=== PATIENT | female | born 1945 | race Caucasian/White ===

== ENCOUNTER 2017-10-12 12:25 | Emergency (ER) | payer OTHER, MEDICARE ==
--- NOTE | 2017-10-12 12:47 | PDOC ---
History of Present Illness - General Chief Complaint: Respiratory Stated Complaint: COUGH & LETHARGY Time Seen by Provider: 10/12/17 12:47 - History of Present Illness Initial Comments: 10/12/17 13:10 Chief complaint: Persistent cough History of present illness: Patient has had a persistent wet cough for approximately 1 week, which is not improving despite finishing her recent course of azithromycin for 5 days. Last dose was this morning. Review of systems: Denies chest pain, shortness of breath or other difficulty breathing, fever or chills, abdominal pain, nausea, vomiting, diarrhea, new visual or focal neurologic symptoms, leg pain or swelling. Remainder systems reviewed and found to be negative Past medical history: Breast cancer with lumpectomy 10 years ago, tamoxifen for the next 5 years, recurrence of breast cancer 5 years ago with metastases to the femur, liver, lungs, and brain. Subsequent chemotherapy, radiation therapy to the brain, and undergoing gamma knife therapy for individual brain metastases. 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 Drooping of the left eyelid, chronic, thought to be the result of radiation or gamma knife therapy. Gastric band. Social history: Lives with her , 2 daughters nearby, limited ambulation, cares for self. No tobacco alcohol or nonprescription drugs Family history: Reviewed and noncontributory Physical exam: Alert, generalized weakness and fatigue but no acute distress, cooperative. Afebrile, No tachypnea or dyspnea. Afebrile, mildly tachycardic 112/m, O2 saturation 97%, respiratory rate 16 and unlabored, adequate blood pressure. PERRLA, fundi benign, ENT clear. Drooping of the left upper eyelid is present, but EOMs appear intact. Neck supple without bruit mass or nodes Decreased breath sounds at the right base, full breath sounds in other areas, no wheezes rales or rhonchi CV S1 and S2 distant without murmur rub or gallop pulses full and symmetric no JVD or edema no bruits regular Abdomen soft nontender without mass or organomegaly. Bowel sounds normal Extremities reveal chronic lymphedema of the right arm is result of breast surgery. This is reportedly unchanged by the patient and her family. Otherwise no CCE. Multiple minor ecchymoses of the extremities, attributed to decreased platelet counts in the past. Impression: Metastatic breast cancer, on chemotherapy and radiation therapy, persistent cough despite course of azithromycin Plan: CBC and chemistries, chest x-ray, and further evaluation and treatment depending on results., 10/12/17 13:18 Past History - Past Medical History Allergies/Adverse Reactions: Allergies Allergy/AdvReac Type Severity Reaction Status Date / Time No Known Drug Allergies Allergy Verified 09/04/15 11:26 platelets AdvReac Chills Uncoded 08/15/15 07:05 Home Medications: Ambulatory Orders Azithromycin [Zithromax -] 250 mg PO UTDICT 10/12/17 Dexamethasone [Decadron -] 4 mg PO DAILY 10/12/17 Anemia: Yes (YRS AGO) Asthma: No Cancer: Yes (right breast,Lungs, pericardium, lymph nodes) Cardiac Disorders: No CVA: No COPD: No CHF: No Dementia: No Diabetes: No GI Disorders: No Disorders: No HTN: No (NOT SINCE LOSING WT) Hypercholesterolemia: No Liver Disease: No Seizures: Yes (AUG 2014 X 1/RELATED TO BRAIN CA) Thyroid Disease: No - Surgical History Abdominal Surgery: Yes (LAP BANDING 2011) Appendectomy: Yes (1979) Cardiac Surgery: No Cholecystectomy: No Lung Surgery: No Neurologic Surgery: Yes (GAMMA KNIFE FOR BRAIN METS AFTER SEIZURE 2013) Orthopedic Surgery: No - Suicide/Smoking/Psychosocial Hx Smoking History: Never smoked Have you smoked in the past 12 months: No Hx Alcohol Use: Yes (RARELY) Drug/Substance Use Hx: No Substance Use Type: Alcohol Hx Substance Use Treatment: No ED Treatment Course - LABORATORY CBC & Chemistry Diagram: 10/12/17 13:05 10/12/17 13:05 Medical Decision Making - Medical Decision Making 10/12/17 13:58 Chest x-ray shows possible nodule in the right base, which has been present for some time. No sign of acute pneumonia. Labs are without significant abnormalities other than a low platelet count, which has been present in the past, and is probably due to current chemotherapy. As noted in the physical exam, respiratory rate and oxygen saturation are adequate. Most likely this is an acute URI/viral bronchitis. The patient has finished a course of azithromycin, She appears to be stable and it was recommended that she rest, avoid the cold, stay as active in the house as possible, but if there is fever, increased shortness of breath, or any other respiratory symptoms she should return to the ER for immediate evaluation. Otherwise follow-up as scheduled with her oncologist on Thursday. Ambulatory and discharged with family to follow-up as directed *DC/Admit/Observation/Transfer Diagnosis at time of Disposition: Bronchitis, acute Qualifiers: Bronchitis organism: unspecified organism Qualified Code(s): J20.9 - Acute bronchitis, unspecified - Discharge Dispostion Disposition: HOME Condition at time of disposition: Stable Admit: No - Referrals Referrals: Adrian Kelly MD [Primary Care Provider] - 3 days - Patient Instructions Printed Discharge Instructions: DI for Acute Bronchitis Additional Instructions: Rest, fluids, frequent walking around the house, stay active, but avoid the cold. Cough medication as needed. Return to ER if there is fever, shortness of breath or other breathing difficulty, worsening weakness, fatigue, or lethargy. Otherwise follow-up as scheduled with oncologist on Thursday and primary physician within 2-3 days. - Post Discharge Activity
[2017-10-12 12:55] VITALS: BP 118/94; PULSE 112; TEMP 98.6; BMI 33.0
[2017-10-12 13:28] LABS: HEMATOCRIT 42.3 % (32.4-45.2); HEMOGLOBIN 14.4 GM/dl (10.7-15.3); MCH 32.9 pg (25.7-33.7); MCHC 34.1 g/dl (32.0-36.0); MEAN CELL VOLUME 96.5 fl (80-96); PLATELET COUNT 69 K/MM3 (134-434); RBC 4.38 M/mm3 (3.60-5.2); RDW 15.2 % (11.6-15.6); WHITE BLOOD COUNT 8.4 K/mm3 (4.0-10.8)
[2017-10-12 13:40] LABS: ALK PHOS 89 U/L (32-92); ANION GAP 6 (8-16); BILIRUBIN,TOTAL 0.8 mg/dl (0.2-1.0); BLOOD UREA NITROGEN 27 mg/dl (7-18); CALCIUM 8.2 mg/dl (8.4-10.2); CHLORIDE 102 mmol/L (98-107); CO2 28 mmol/L (22-28); CREATININE 0.5 mg/dl (0.6-1.3); GLUCOSE,RANDOM 199 mg/dl (74-106); POTASSIUM 3.8 mmol/L (3.5-5.1); SGOT/AST 17 U/L (10-42); SGPT/ALT 31 U/L (10-40); SODIUM 136 mmol/L (136-145); TOT PROT 5.3 g/dl (6.4-8.3)
[2017-10-12 14:43] LABS: PLATELET ESTIMATE DECREASED
== END 2017-10-12 14:15 | disposition home or self-care (01) ==
LOC: FER 12:25
DX: J20.9 Acute bronchitis, unspecified (principal); Z85.3 Personal history of malignant neoplasm of breast; D64.9 Anemia, unspecified
CPT/HCPCS: 36415; 71045-TC; 80053; 85025; 99282-25

== ENCOUNTER 2017-10-23 02:13 | Inpatient (IN) | payer OTHER, MEDICARE ==
[2017-10-23] MEDS ORDERED: SODIUM CHLORIDE 1,000 ML IV ONE (02:39)
--- NOTE | 2017-10-23 02:41 | PDOC ---
History of Present Illness - General Chief Complaint: Weakness Stated Complaint: WEAKNESS Time Seen by Provider: 10/23/17 02:37 History Source: Patient Exam Limitations: No Limitations - History of Present Illness Initial Comments: 10/23/17 02:40 This is a 72-year-old female brought in by EMS for evaluation of generalized weakness. Patient to sleep on the couch and when she woke up was too weak to get up off the couch. So family called EMS. Patient has history significant for breast cancer and is on chemotherapy. Patient was recently here for generalized weakness. Patient denies any chest pain, shortness of breath, nausea, vomiting, diarrhea, fever, chills or any other complaints. Patient is noted to have a moist cough in the emergency room PAST MEDICAL HISTORY: no significant history PAST SURGICAL HISTORY: no significant history FAMILY HISTORY: no pertinant history SOCIAL HISTORY: Pt lives with family and is retired MEDICATIONS: reviewed ALLERGIES: As per nursing notes Review of Systems General: No fevers or chills, no weakness, no weight loss HEENT: No change in vision. No sore throat,. No ear pain CardioVascular: No chest pain or shortness of breath, cough Respiratory:No cough, or wheezing. Gastrointestinal: no nausea, vomitting, diarrhea or constipation, No rectal bleeding Genitourinary: No dysuria, hematuria, or frequency Musculoskeletal: No joint or muscle pain or swelling Neurologic: No headache, vertigo, dizziness or loss of consciousness Psychiatric: nor depression Skin: No rashes or easy bruising Endocrine: no increased thirst or abnormal weight change Allergic: no skin or latex allergy All other systems reviewed and normal Exam: General: Well-nourished well-developed individual, no acute distress HEENT: Throat: Normal, tonsils normal, no erythema or exudate Neck: Supple, no meningeal signs, no lymphadenopathy Eyes::Pupils equal reactive and round, extraocular motion intact Chest: Nontender to palpation Cardiac: S1-S2 normal, regular rate and rhythm, no murmurs rubs or gallops Respiratory: Decreased breath sounds bilateral with rhonchi at bases bilateral Abdomen: Soft, nondistended, normal bowel sounds, nontender to palpation diffusely Extremities: Warm, dry, no cyanosis, clubbing, or edema Skin: No rashes Neuro: Alert and oriented x3, CN II - XII intact, nonfocal exam with normal strength, normal sensation, normal reflexes, normal gait, Psych: Normal mood and affect Medical decision making this is a 72-year-old female who is history of breast cancer on chemotherapy. Patient comes in complaining of generalized weakness. Patient does not have a fever however concerned for neutropenia, sepsis, electrolyte or metabolic abnormalities. Will obtain a sepsis workup using sepsis order sets. We'll reassess 03:30 Patient unchanged condition stable however oxygen level is low so will put patient on a couple liters of oxygen EKG shows sinus rhythm with occasional PVC otherwise no acute ST-T wave changes and normal intervals 10/23/17 04:34 Some of the blood was hemolyzed so redrawn and resent Patient's clinical condition remains unchanged Her chest x-ray shows bilateral infiltrates, blood cultures were drawn and sent antibiotics ordered ceftriaxone and azithromycin from the sepsis pneumonia order set for patient. 10/23/17 06:34 Assessment and plan: This is a 72-year-old female who comes in complaining of generalized weakness. Patient has bilateral pneumonia. Patient has markedly elevated white count with a left shift white count is 23.9. Obesity is not acidotic her venous blood gas pH is normal, her lactic acid is 1.8 which is normal. Patient is requiring some oxygen she is on 2 L nasal cannula Discussed with the hospitalist to list Dr. Araujo who has agreed to admit the patient to an inpatient bed Past History - Past Medical History Allergies/Adverse Reactions: Allergies Allergy/AdvReac Type Severity Reaction Status Date / Time No Known Drug Allergies Allergy Verified 09/04/15 11:26 platelets AdvReac Chills Uncoded 08/15/15 07:05 Home Medications: Ambulatory Orders Azithromycin [Zithromax -] 250 mg PO UTDICT 10/12/17 Dexamethasone [Decadron -] 4 mg PO DAILY 10/12/17 Anemia: Yes (YRS AGO) Asthma: No Cancer: Yes (right breast,Lungs, pericardium, lymph nodes) Cardiac Disorders: No CVA: No COPD: No CHF: No Dementia: No Diabetes: No GI Disorders: No Disorders: No HTN: No (NOT SINCE LOSING WT) Hypercholesterolemia: No Liver Disease: No Seizures: Yes (AUG 2014 X 1/RELATED TO BRAIN CA) Thyroid Disease: No - Surgical History Abdominal Surgery: Yes (LAP BANDING 2011) Appendectomy: Yes (1979) Cardiac Surgery: No Cholecystectomy: No Lung Surgery: No Neurologic Surgery: Yes (GAMMA KNIFE FOR BRAIN METS AFTER SEIZURE 2013) Orthopedic Surgery: No - Suicide/Smoking/Psychosocial Hx Smoking History: Never smoked Have you smoked in the past 12 months: No Hx Alcohol Use: Yes (RARELY) Drug/Substance Use Hx: No Substance Use Type: Alcohol Hx Substance Use Treatment: No *Physical Exam - Vital Signs Last Vital Signs Temp Pulse Resp BP Pulse Ox 98.7 F 103 H 18 127/102 99 10/23/17 02:16 10/23/17 02:16 10/23/17 02:16 10/23/17 02:16 10/23/17 02:16 ED Treatment Course - LABORATORY CBC & Chemistry Diagram: 10/23/17 02:40 10/23/17 04:20 *DC/Admit/Observation/Transfer Diagnosis at time of Disposition: Pneumonia - Discharge Dispostion Condition at time of disposition: Stable Admit: Yes - Referrals Referrals: Abel Main [Primary Care Provider] - - Patient Instructions - Post Discharge Activity
[2017-10-23 03:17] LABS: HEMATOCRIT 33.1 % (32.4-45.2); HEMOGLOBIN 11.2 GM/dL (10.7-15.3); MCH 31.6 pg (25.7-33.7); MCHC 33.9 g/dl (32.0-36.0); MEAN CELL VOLUME 93.2 fl (80-96); PLATELET COUNT 123 K/MM3 (134-434); RBC 3.55 M/mm3 (3.60-5.2); RDW 16.5 % (11.6-15.6); WHITE BLOOD COUNT 23.9 K/mm3 (4.0-10.0)
[2017-10-23 03:53] LABS: ALBUMIN 2.5 g/dl (3.4-5.0); ANION GAP 10 (8-16); BILIRUBIN,TOTAL 0.6 mg/dL (0.2-1.0); BLOOD UREA NITROGEN 21 mg/dL (7-18); CALCIUM 7.9 mg/dL (8.5-10.1); CHLORIDE 103 mmol/L (98-107); CO2 26 mmol/L (21-32); GLUCOSE,RANDOM 82 mg/dL (74-106); SGPT/ALT 36 U/L (12-78); SODIUM 139 mmol/L (136-145); TOT PROT 5.5 g/dl (6.4-8.2)
[2017-10-23 03:54] LABS: ALK PHOS 136 U/L (45-117)
[2017-10-23] MEDS ORDERED: AZITHROMYCIN IVPB 500 MG in DEXTROSE 5%-WATER - 250 ML IVPB ONE (04:33)
[2017-10-23] MEDS ORDERED: CEFTRIAXONE 1 GM in DEXTROSE 5%-WATER - 100 ML IVPB ONE (04:33)
[2017-10-23 04:59] LABS: VENOUS PH 7.4 (7.32-7.42); VENOUS PO2 25.1 mmHg (28-48)
[2017-10-23 05:15] LABS: URINE APPEARANCE CLEAR; URINE BILIRUBIN NEGATIVE (NEGATIVE); URINE BLOOD NEGATIVE (NEGATIVE); URINE COLOR STRAW; URINE GLUCOSE (UA) NEGATIVE (NEGATIVE); URINE KETONE NEGATIVE (NEGATIVE); URINE NITRITE POSITIVE (NEGATIVE); URINE PROTEIN NEGATIVE (NEGATIVE); URINE UROBILINOGEN NEGATIVE mg/dL (0.2-1.0)
[2017-10-23 05:20] LABS: URINE LEUK ESTERASE 2+ (NEGATIVE)
[2017-10-23 05:26] LABS: ACANTHOCYTES 0; ANISOCYTOSIS 0; HELMET CELLS 0; HOWELL-JOLLY BODIES 0; MACROCYTOSIS 0; OVALOCYTE 0; PLATELET ESTIMATE DECREASED; SICKELED CELLS 0; TARGET CELLS 0; TEAR DROP CELLS 0; TOXIC GRANULATION 0
[2017-10-23 05:34] LABS: EPI CELLS RARE /HPF (FEW); URINE BACTERIA MODERATE /hpf (NONE SEEN); URINE MUCUS RARE
[2017-10-23] MEDS ORDERED: SODIUM CHLORIDE 500 ML IV STA (06:42)
[2017-10-23] MEDS ORDERED: SODIUM CHLORIDE 1,000 ML IV STA (06:44)
--- NOTE | 2017-10-23 06:56 | HP ---
CHIEF COMPLAINT: generalized weakness PCP: Dr Main (oncologist) HISTORY OF PRESENT ILLNESS: Patient is a 72 y/o female with a past medical history of metastic (Brain and lung) breast CA stage IV and Von Willerbrand's disease, patient receives in chemotherapy weekly, next dose is Thursday, . Patient received 2 doses of neupogen, Thursday (10/21) and (10/22) . She reports ongoing moist cough for the past month and within the past 30 days, she has completed five days of zithromax, solumedrol last dose was 10/21/17, and is on day 3 of bactrim. Patient reports ongoing generalized weakness and worsening of the cough within the past 24 hours. She reports the inability to ambulate or perform ADL's within the past 24 hours and as a result sought evaluation in the emergency department. ER course was notable for: (1) cbc 23.9, bandemia with left shift (2) chest xray progressive atelactactic changes (3) urinalysis + nitrates Recent Travel: none PAST MEDICAL HISTORY: see HPI PAST SURGICAL HISTORY: appendectomy, lap band, tubal ligation, cataract surgery , Social History: resides at home with Smoking:none Alcohol:none Drugs: none Family History: brother--> esophegeal [place] Allergies No Known Drug Allergies Allergy (Verified 09/04/15 11:26) Platlets needs premeds Chills platelets Adverse Reaction (Uncoded 08/15/15 07:05) Chills Needs premeds HOME MEDICATIONS: Home Medications Medication Instructions Recorded Azithromycin [Zithromax -] 250 mg PO UTDICT 10/12/17 Dexamethasone [Decadron -] 4 mg PO DAILY 10/12/17 REVIEW OF SYSTEMS CONSTITUTIONAL: Present: generalized weakness, malaise, Absent: fever, chills, diaphoresis, loss of appetite, weight change HEENT: Absent: rhinorrhea, nasal congestion, throat pain, throat swelling, difficulty swallowing, mouth swelling, ear pain, eye pain, visual changes CARDIOVASCULAR: Absent: chest pain, syncope, palpitations, irregular heart rate, lightheadedness , peripheral edema RESPIRATORY: Absent: cough, shortness of breath, dyspnea with exertion, orthopnea, wheezing, stridor, hemoptysis GASTROINTESTINAL: Absent: abdominal pain, abdominal distension, nausea, vomiting, diarrhea, constipation, melena, hematochezia GENITOURINARY: Absent: dysuria, frequency, urgency, hesitancy, hematuria, flank pain, genital pain MUSCULOSKELETAL: Absent: myalgia, arthralgia, joint swelling, back pain, neck pain SKIN: Absent: rash, itching, pallor HEMATOLOGIC/IMMUNOLOGIC: Absent: easy bleeding, easy bruising, lymphadenopathy, frequent infections ENDOCRINE: Absent: unexplained weight gain, unexplained weight loss, heat intolerance, cold intolerance NEUROLOGIC: Absent: headache, focal weakness or paresthesias, dizziness, unsteady gait, seizure, mental status changes, bladder or bowel incontinence PSYCHIATRIC: Absent: anxiety, depression, suicidal or homicidal ideation, hallucinations. PHYSICAL EXAMINATION Vital Signs - 24 hr 10/23/17 10/23/17 10/23/17 02:16 04:10 05:15 Temperature 98.7 F 97.7 F Pulse Rate 103 H Pulse Rate [ 90 81 Radial] Respiratory 18 18 Rate Blood Pressure 127/102 Blood Pressure 99/62 103/65 [Left Arm] O2 Sat by Pulse 99 96 99 Oximetry (%) 10/23/17 06:15 Temperature 98.3 F Pulse Rate Pulse Rate [ 83 Radial] Respiratory 17 Rate Blood Pressure Blood Pressure 96/61 [Left Arm] O2 Sat by Pulse 100 Oximetry (%) GENERAL: Awake, alert, and fully oriented, in no acute distress. HEAD: Normal with no signs of trauma. EYES: Pupils equal, round and reactive to light, extraocular movements intact, sclera anicteric, conjunctiva clear. No lid lag. EARS, NOSE, THROAT: Ears normal, nares patent, thrush noted to the oropharynx. dry mucous membranes. NECK: Normal range of motion, supple without lymphadenopathy, JVD, or masses. LUNGS: Breath sounds equal, clear to apexes, crackles to bilateral bases, No wheezes, persistent moist cough noted, No accessory muscle use. HEART: Regular rate and rhythm, normal S1 and S2 without murmur, rub or gallop. ABDOMEN: Soft, nontender, not distended, normoactive bowel sounds, no guarding, no rebound, no masses. No hepatomegaly or splenomegaly. MUSCULOSKELETAL: Normal range of motion at all joints. No bony deformities or tenderness. No CVA tenderness. UPPER EXTREMITIES: 2+ pulses, warm, well-perfused. No cyanosis. No clubbing. No peripheral edema. LOWER EXTREMITIES: 2+ pulses, warm, well-perfused. No calf tenderness. No peripheral edema. NEUROLOGICAL: Cranial nerves II-XII intact. Normal speech. Normal gait. PSYCHIATRIC: Cooperative. Good eye contact. Appropriate mood and affect. SKIN: Warm, dry, normal turgor, no rashes or lesions noted, normal capillary refill. Laboratory Results - last 24 hr 10/23/17 10/23/17 10/23/17 02:40 02:40 02:40 WBC 23.9 H D RBC 3.55 L D Hgb 11.2 D Hct 33.1 D MCV 93.2 MCH 31.6 MCHC 33.9 RDW 16.5 H D Plt Count 123 L D MPV 9.0 Neutrophils % No Result Required. Neutrophils % (Manual) 80.0 Band Neutrophils % 4.0 Lymphocytes % No Result Required. Lymphocytes % (Manual) 2.0 L Monocytes % (Manual) 5 Eosinophils % (Manual) 0.0 Basophils % (Manual) 9.0 H* Myelocytes % (Man) 0 Metamyelocytes 0 Hypochromia 0 Toxic Granulation 0 Dohle Bodies 0 Platelet Estimate Decreased Polychromasia 0 Poikilocytosis 0 Basophilic Stippling 0 Anisocytosis 0 Microcytosis 0 Macrocytosis 0 Spherocytes 0 Sickle Cells 0 Target Cells 0 Tear Drop Cells 0 Ovalocytes 0 Stomatocytes 0 Helmet Cells 0 Kelsey-Johnson Bodies 0 [place] Rings 0 [place] Cells 0 Acanthocytes (Spur) 0 Fragmented RBCs 0 Schistocytes 0 VBG pH POC VBG pCO2 POC VBG pO2 Mixed VBG HCO3 Sodium 139 Potassium Chloride 103 Carbon Dioxide 26 Anion Gap 10 BUN 21 H Creatinine 1.0 Creat Clearance w eGFR 54.66 Random Glucose 82 Lactic Acid Calcium 7.9 L Magnesium Total Bilirubin 0.6 D AST ALT 36 Alkaline Phosphatase 136 H Creatine Kinase 67 Troponin I < 0.02 Total Protein 5.5 L Albumin 2.5 L Urine Color Urine Appearance Urine pH Ur Specific [place] Urine Protein Urine Glucose (UA) Urine Ketones Urine Blood Urine Nitrite Urine Bilirubin Urine Urobilinogen Ur Leukocyte Esterase Urine WBC (Auto) Urine RBC (Auto) Ur Epithelial Cells Urine Bacteria Urine Mucus 10/23/17 10/23/17 10/23/17 04:05 04:20 04:20 WBC RBC Hgb Hct MCV MCH MCHC RDW Plt Count MPV Neutrophils % Neutrophils % (Manual) Band Neutrophils % Lymphocytes % Lymphocytes % (Manual) Monocytes % (Manual) Eosinophils % (Manual) Basophils % (Manual) Myelocytes % (Man) Metamyelocytes Hypochromia Toxic Granulation Dohle Bodies Platelet Estimate Polychromasia Poikilocytosis Basophilic Stippling Anisocytosis Microcytosis Macrocytosis Spherocytes Sickle Cells Target Cells Tear Drop Cells Ovalocytes Stomatocytes Helmet Cells Kelsey-Johnson Bodies Carrington Rings Chanell Cells Acanthocytes (Spur) Fragmented RBCs Schistocytes VBG pH POC VBG pCO2 POC VBG pO2 Mixed VBG HCO3 Sodium Potassium 4.0 Chloride Carbon Dioxide Anion Gap BUN Creatinine Creat Clearance w eGFR Random Glucose Lactic Acid 1.8 Calcium Magnesium 2.0 Total Bilirubin AST 17 D ALT Alkaline Phosphatase Creatine Kinase Troponin I Total Protein Albumin Urine Color Straw Urine Appearance Clear Urine pH 6.0 D Ur Specific [place] 1.006 Urine Protein Negative Urine Glucose (UA) Negative Urine Ketones Negative Urine Blood Negative Urine Nitrite Positive Urine Bilirubin Negative Urine Urobilinogen Negative Ur Leukocyte Esterase 2+ H Urine WBC (Auto) 15 Urine RBC (Auto) 1 Ur Epithelial Cells Rare Urine Bacteria Moderate Urine Mucus Rare 10/23/17 04:27 WBC RBC Hgb Hct MCV MCH MCHC RDW Plt Count MPV Neutrophils % Neutrophils % (Manual) Band Neutrophils % Lymphocytes % Lymphocytes % (Manual) Monocytes % (Manual) Eosinophils % (Manual) Basophils % (Manual) Myelocytes % (Man) Metamyelocytes Hypochromia Toxic Granulation Dohle Bodies Platelet Estimate Polychromasia Poikilocytosis Basophilic Stippling Anisocytosis Microcytosis Macrocytosis Spherocytes Sickle Cells Target Cells Tear Drop Cells Ovalocytes Stomatocytes Helmet Cells Kelsey-Johnson Bodies Carrington Rings Chanell Cells Acanthocytes (Spur) Fragmented RBCs Schistocytes VBG pH 7.40 POC VBG pCO2 43.0 POC VBG pO2 25.1 L Mixed VBG HCO3 26.0 H Sodium Potassium Chloride Carbon Dioxide Anion Gap BUN Creatinine Creat Clearance w eGFR Random Glucose Lactic Acid Calcium Magnesium Total Bilirubin AST ALT Alkaline Phosphatase Creatine Kinase Troponin I Total Protein Albumin Urine Color Urine Appearance Urine pH Ur Specific [place] Urine Protein Urine Glucose (UA) Urine Ketones Urine Blood Urine Nitrite Urine Bilirubin Urine Urobilinogen Ur Leukocyte Esterase Urine WBC (Auto) Urine RBC (Auto) Ur Epithelial Cells Urine Bacteria Urine Mucus ASSESSMENT/PLAN: F/E/N -regular diet - replete phos, sodium phos gtt ordered PPX - hold AC due to thrombocytopenia - pepcid - oob - scd dispo: pt requires inpatient admission plan discussed with both daughters and agree with plan full code Problem List - Problem (1) Leukocytosis Assessment/Plan: - patient received neupogen 10/21 and 10/22, maybe secondary to neupogen, nitrate + urine noted and high suspicioun for PNA on exam, case discussed with infectious disease, Dr Garibay advised to continue rocephin and zithromax, with strict monitoring - stat blood cultures from port ordered, follow peripheral venous blood cultures and urine cultures - repeat cbc in AM, trend fever curve Code(s): D72.829 - ELEVATED WHITE BLOOD CELL COUNT, UNSPECIFIED Qualifiers: Leukocytosis type: bandemia Qualified Code(s): D72.825 - Bandemia (2) Urinary tract infection Assessment/Plan: - continue rocephin until urine culture is resulted - appreciate ID input Code(s): N39.0 - URINARY TRACT INFECTION, SITE NOT SPECIFIED (3) Breast cancer metastasized to brain Assessment/Plan: - receives weekly chemotherapy, cytotoxin, case discussed with Mariel Miller NP (Dr Main), copies of chart received from office - Dr Main does not have privileges at this hospital, will appreciate the input of oncology, Dr Sanchez/David Code(s): C50.919 - MALIGNANT NEOPLASM OF UNSP SITE OF UNSPECIFIED FEMALE BREAST ; C79.31 - SECONDARY MALIGNANT NEOPLASM OF BRAIN (4) Von Willebrand disease Assessment/Plan: - monitor platelets, repeat cbc in AM -appreciate hematology/oncology input Code(s): D68.0 - VON WILLEBRAND'S DISEASE (5) Thrush, oral Assessment/Plan: - start diflucan and magic mouth wash. Code(s): B37.0 - CANDIDAL STOMATITIS Visit type - Emergency Visit Emergency Visit: Yes ED Registration Date: 10/23/17 Care time: The patient presented to the Emergency Department on the above date and was hospitalized for further evaluation of their emergent condition. - New Patient This patient is new to me today: Yes Date on this admission: 10/23/17 - Critical Care Critical Care patient: No
[2017-10-23] MEDS ORDERED: ALBUTEROL SO4 0.083% IH SOL 2.5 MG/3 ML VIAL.NEB. NEB PRN (07:30)
[2017-10-23] MEDS ORDERED: ENOXAPARIN NA (PORCINE) 40 MG/0.4 ML DISP.SYRIN SQ SCH (10:00)
[2017-10-23] MEDS ORDERED: ONDANSETRON *ODT* 4 MG TABLET SL PRN (10:07)
--- NOTE | 2017-10-23 10:13 | EKG ---
Test Reason : Blood Pressure : / mmHG Vent. Rate : 095 BPM Atrial Rate : 095 BPM P-R Int : 134 ms QRS Dur : 080 ms QT Int : 346 ms P-R-T Axes : 033 -13 005 degrees QTc Int : 434 ms SINUS RHYTHM WITH PREMATURE SUPRAVENTRICULAR COMPLEXES LOW VOLTAGE QRS BORDERLINE ECG Confirmed by MD AVINASH, ERENDIRA ([id number]) on 10/23/2017 10:12:46 AM Referred By: LEVY YA Confirmed By:ERENDIRA DA SILVA MD
[2017-10-23] MEDS ORDERED: CEFTRIAXONE 2 GM in DEXTROSE 5%-WATER - 100 ML IVPB SCH (10:30)
[2017-10-23] MEDS: FLUCONAZOLE 100 MG TABLET (UD) PO ONE (10:49)
[2017-10-23] MEDS: FAMOTIDINE 20 MG TABLET PO SCH ×2 (10:50→22:46)
[2017-10-23] MEDS: SODIUM CHLORIDE 1,000 ML IV SCH (10:51)
[2017-10-23] MEDS ORDERED: SODIUM PHOSPHATE - 15 MM in DEXTROSE 5%-WATER - 250 ML IVPB ONE (11:30)
[2017-10-23] MEDS: ALBUTEROL SO4 2.5/IPRATROPIUM 0.5 INH SOL 3 ML VIAL.NEB. NEB SCH ×3 (12:55→20:00)
[2017-10-23] MEDS: MAG HYDROX/ALH/SMC/DPHA/LIDO 240 ML MOUTHWASH MM SCH ×2 (12:57→17:02)
[2017-10-23 15:31] VITALS: BMI 36.3
[2017-10-23] MEDS ORDERED: AZITHROMYCIN IVPB 250 ML IVPB SCH (16:00)
[2017-10-23] MEDS: CEFTRIAXONE 2 GM/100 ML BAG IVPB SCH (16:59)
[2017-10-23] MEDS ORDERED: REFRIGERATED ANITBIOTICS ONE (17:01)
[2017-10-23 17:26] LABS: ALBUMIN 2.4 g/dl (3.5-5.0); ALK PHOS 105 U/L (32-92); ANION GAP 7 (8-16); BILIRUBIN,TOTAL 0.5 mg/dl (0.2-1.0); BLOOD UREA NITROGEN 17 mg/dl (7-18); CALCIUM 7.6 mg/dl (8.4-10.2); CHLORIDE 107 mmol/L (98-107); CO2 24 mmol/L (22-28); CREATININE 0.9 mg/dl (0.6-1.3); GLUCOSE,RANDOM 147 mg/dl (74-106); POTASSIUM 3.5 mmol/L (3.5-5.1); SGOT/AST 21 U/L (10-42); SGPT/ALT 29 U/L (10-40); SODIUM 138 mmol/L (136-145); TOT PROT 4.5 g/dl (6.4-8.3)
[2017-10-23 17:27] LABS: INR 1.17 (0.82-1.09); PROTHROMBIN TIME (PATIENT) 13.1 SEC (10.2-13.0)
[2017-10-23 17:42] LABS: BASO % 0.5 % (0-2.0); EOS % 0.1 % (0-4.5); HEMATOCRIT 32.4 % (32.4-45.2); HEMOGLOBIN 10.8 GM/dl (10.7-15.3); LYMPH % 10.1 % (8-40); MCH 31.7 pg (25.7-33.7); MCHC 33.5 g/dl (32.0-36.0); MEAN CELL VOLUME 94.8 fl (80-96); MEAN PLT VOLUME 8.1 fl (7.5-11.1); NEUT % 29.3 % (42.8-82.8); PLATELET COUNT 67 K/MM3 (134-434); RBC 3.41 M/mm3 (3.60-5.2); WHITE BLOOD COUNT 17.1 K/mm3 (4.0-10.8)
--- NOTE | 2017-10-23 20:16 | PN ---
Progress Note (short form) - Note Progress Note: ID Consult dictated
--- NOTE | 2017-10-23 23:30 | HOSP ---
Subjective - Review of Symptoms Events since last encounter: Nurse report pt SBP in 80s Subjective: Pt reports feeling a little bit better. Pt denies any lightheadedness. + cough persists. CT results with RML, RLL, LLL infiltrates. Pulmonary: Yes: Cough Physical Examination Vital Signs: Vital Signs Temperature 97.8 F 10/23/17 22:00 Pulse Rate 98 H 10/23/17 22:00 Respiratory Rate 19 10/23/17 22:00 Blood Pressure 82/49 10/23/17 22:00 O2 Sat by Pulse Oximetry (%) 97 10/23/17 22:00 Constitutional: Yes: No Distress Cardiovascular: Yes: Regular Rate and Rhythm Respiratory: Yes: Other (crackles right base) Gastrointestinal: Yes: Normal Bowel Sounds, Soft. No: Tenderness Edema: No Neurological: Yes: Alert, Oriented Labs: CBC, BMP 10/23/17 16:10 10/23/17 16:10 Hospitalist Encounter Assessment: B/L Pneumonia with mild hypotension - will give NS bolus 250cc x1 then resume 100cc/hr - cont VS q4h. - cont ceftriaxone/azithromycin - cont ID consult
[2017-10-23] MEDS ORDERED: SODIUM CHLORIDE 250 ML IV STA (23:31)
[2017-10-24] MEDS ORDERED: REFRIGERATED ANITBIOTICS ONE ×4 (00:08→23:04)
[2017-10-24] MEDS: MAG HYDROX/ALH/SMC/DPHA/LIDO 240 ML MOUTHWASH MM SCH ×5 (00:28→23:12)
[2017-10-24] MEDS: ALBUTEROL SO4 2.5/IPRATROPIUM 0.5 INH SOL 3 ML VIAL.NEB. NEB SCH ×4 (08:00→21:10)
[2017-10-24 09:06] LABS: HEMATOCRIT 34.7 % (32.4-45.2); HEMOGLOBIN 11.2 GM/dl (10.7-15.3); MCH 30.9 pg (25.7-33.7); MCHC 32.3 g/dl (32.0-36.0); MEAN CELL VOLUME 95.7 fl (80-96); MEAN PLT VOLUME 7.8 fl (7.5-11.1); PLATELET COUNT 94 K/MM3 (134-434); RBC 3.63 M/mm3 (3.60-5.2); RDW 15.6 % (11.6-15.6); WHITE BLOOD COUNT 14.5 K/mm3 (4.0-10.8)
[2017-10-24 09:36] LABS: ANION GAP 9 (8-16); BLOOD UREA NITROGEN 11 mg/dl (7-18); CALCIUM 7.7 mg/dl (8.4-10.2); CHLORIDE 106 mmol/L (98-107); CO2 25 mmol/L (22-28); CREATININE 0.7 mg/dl (0.6-1.3); GLUCOSE,RANDOM 117 mg/dl (74-106); POTASSIUM 3.5 mmol/L (3.5-5.1); SODIUM 140 mmol/L (136-145)
[2017-10-24] MEDS: SODIUM CHLORIDE 1,000 ML IV SCH (09:45)
[2017-10-24] MEDS: FAMOTIDINE 20 MG TABLET PO SCH (09:47)
--- NOTE | 2017-10-24 09:52 | PN ---
Progress Note, Physician History of Present Illness: Awake, alert Blood c/s + GPCP+CC No focal complaint Mildly tachypneic at rest + cough Afebrile WBC improved - Current Medication List Current Medications: Active Medications Acetaminophen (Tylenol -) 650 mg PO Q6H PRN PRN Reason: FEVER Albuterol Sulfate (Ventolin 0.083% Nebulizer Soln -) 1 amp NEB Q4H PRN PRN Reason: SHORT OF BREATH/WHEEZING Albuterol/Ipratropium (Duoneb -) 1 amp NEB RQID [facility] Last Admin: 10/23/17 20:00 Dose: 1 amp Famotidine (Pepcid -) 20 mg PO BID [facility] Last Admin: 10/23/17 22:46 Dose: 20 mg Fluconazole (Diflucan -) 100 mg PO DAILY [facility] Sodium Chloride (Normal Saline -) 1,000 mls @ 100 mls/hr IV ASDIR [facility] Last Admin: 10/23/17 10:51 Dose: 100 mls/hr Azithromycin (Zithromax 500mg Ivpb (Pre-Docked)) 250 mls @ 250 mls/hr IVPB DAILY@1600 [facility] Last Admin: 10/23/17 16:59 Dose: 250 mls/hr Ceftriaxone Sodium (Rocephin 2gm Ivpb (Pre-Docked)) 2 gm in 100 mls @ 200 mls/ hr IVPB DAILY@1600 [facility] Last Admin: 10/23/17 16:59 Dose: 200 mls/hr Lidocaine/Aluminum/Magnesium/Simeth (Magic Mouthwash *Sjr Formula* -) 5 ml MM Q6HPO [facility] Last Admin: 10/24/17 06:00 Dose: 5 ml Ondansetron HCl (Zofran Odt -) 4 mg SL Q8H PRN PRN Reason: NAUSEA AND/OR VOMITING - Objective Vital Signs: Vital Signs Temperature 98.6 F 10/24/17 05:07 Pulse Rate 107 H 10/24/17 05:07 Respiratory Rate 20 10/24/17 05:07 Blood Pressure 107/59 10/24/17 05:07 O2 Sat by Pulse Oximetry (%) 95 10/24/17 05:07 Constitutional: Yes: No Distress, Obese Eyes: Yes: Conjunctiva Clear HENT: Yes: Thrush Neck: Yes: Supple Cardiovascular: Yes: Regular Rate and Rhythm, S1, S2 Respiratory: Yes: Rhonchi, Wheezes Gastrointestinal: Yes: Normal Bowel Sounds, Soft, Abdomen, Obese. No: Tenderness Edema: Yes Labs: CBC, BMP 10/24/17 08:52 10/24/17 08:52 INR, PTT INR 1.17 (0.82-1.09) 10/23/17 16:10 Assessment/Plan Streptococcal bacteremia/ sepsis Sepsis secondary to pneumonia Multilobar pneumonia Metastatic carcinoma Leukocytosis- sepsis/ neupogen Pending identification of blood isolate empiric ceftriaxone/ vancomycin
[2017-10-24] MEDS: VANCOMYCIN 1,000 MG in DEXTROSE 5%-WATER - 250 ML IVPB SCH ×2 (10:00→21:10)
[2017-10-24] MEDS: FLUCONAZOLE 100 MG TABLET (UD) PO SCH (10:47)
--- NOTE | 2017-10-24 11:41 | PN ---
Physical Exam: SUBJECTIVE: Patient seen and examined at bedside. OBJECTIVE: Vital Signs Period Temp Pulse Resp BP Sys/Blum Pulse Ox Last 24 Hr 97.7 F-98.9 F 94-107 19-20 82-107/40-59 93-97 GENERAL: The patient is awake, alert, and fully oriented, in no acute distress. HEAD: Alopecia. LUNGS: Breath sounds equal, clear to auscultation bilaterally, no wheezes, no crackles, no accessory muscle use. HEART: Regular rate and rhythm, S1, S2 without murmur, rub or gallop. ABDOMEN: SNTND EXTREMITIES: 2+ pulses, warm, well-perfused, no edema. NEUROLOGICAL: Left lid lag. PSYCH: Normal mood, normal affect. Laboratory Results - last 24 hr 10/23/17 10/23/17 10/23/17 16:10 16:10 16:10 WBC 17.1 H D RBC 3.41 L D Hgb 10.8 D Hct 32.4 D MCV 94.8 MCH 31.7 MCHC 33.5 RDW 16.0 H Plt Count 67 L MPV 8.1 Neutrophils % 29.3 L Lymphocytes % 10.1 Monocytes % 60.0 H Eosinophils % 0.1 Basophils % 0.5 PT with INR INR Sodium 138 Potassium 3.5 Chloride 107 Carbon Dioxide 24 Anion Gap 7 L BUN 17 D Creatinine 0.9 D Creat Clearance w eGFR > 60 Random Glucose 147 H D Lactic Acid 2.3 H* Calcium 7.6 L Total Bilirubin 0.5 D AST 21 D ALT 29 Alkaline Phosphatase 105 H Total Protein 4.5 L Albumin 2.4 L Blood Type Antibody Screen 10/23/17 10/23/17 10/23/17 16:10 16:10 22:00 WBC RBC Hgb Hct MCV MCH MCHC RDW Plt Count MPV Neutrophils % Lymphocytes % Monocytes % Eosinophils % Basophils % PT with INR 13.1 H INR 1.17 Sodium Potassium Chloride Carbon Dioxide Anion Gap BUN Creatinine Creat Clearance w eGFR Random Glucose Lactic Acid 1.5 Calcium Total Bilirubin AST ALT Alkaline Phosphatase Total Protein Albumin Blood Type O NEGATIVE Antibody Screen Negative 10/24/17 10/24/17 08:52 08:52 WBC 14.5 H RBC 3.63 Hgb 11.2 Hct 34.7 MCV 95.7 MCH 30.9 MCHC 32.3 RDW 15.6 Plt Count 94 L MPV 7.8 Neutrophils % Lymphocytes % Monocytes % Eosinophils % Basophils % PT with INR INR Sodium 140 Potassium 3.5 Chloride 106 Carbon Dioxide 25 Anion Gap 9 BUN 11 D Creatinine 0.7 D Creat Clearance w eGFR Random Glucose 117 H D Lactic Acid Calcium 7.7 L Total Bilirubin AST ALT Alkaline Phosphatase Total Protein Albumin Blood Type Antibody Screen Active Medications Generic Name Dose Route Start Last Admin Trade Name Freq PRN Reason Stop Dose Admin Acetaminophen 650 mg 10/23/17 10:10 Tylenol - PO Q6H PRN FEVER Albuterol Sulfate 1 amp 10/23/17 07:30 Ventolin 0.083% Nebulizer Soln - NEB Q4H PRN SHORT OF BREATH/WHEEZING Albuterol/Ipratropium 1 amp 10/23/17 12:00 10/23/17 20:00 Duoneb - NEB 1 amp RQID LILLIE Administration Famotidine 20 mg 10/23/17 10:00 10/23/17 22:46 Pepcid - PO 20 mg BID LILLIE Administration Fluconazole 100 mg 10/24/17 10:00 Diflucan - PO DAILY LILLIE Sodium Chloride 1,000 mls @ 100 mls/hr 10/23/17 09:45 10/23/17 10:51 Normal Saline - IV 100 mls/hr ASDIR LILLIE Administration Ceftriaxone Sodium 2 gm in 100 mls @ 200 mls/hr 10/23/17 16:00 10/23/17 16:59 Rocephin 2gm Ivpb (Pre-Docked) IVPB 200 mls/hr DAILY@1600 L[facility]IE Administration Vancomycin HCl 1,000 mg/ 250 mls @ 200 mls/hr 10/24/17 10:00 Dextrose IVPB Q12H LILLIE Lidocaine/Aluminum/Magnesium/Simeth 5 ml 10/23/17 12:00 10/24/17 06:00 Magic Mouthwash *Sjr Formula* - MM 5 ml Q6HPO [facility]ILLIE Administration Ondansetron HCl 4 mg 10/23/17 10:07 Zofran Odt - SL Q8H PRN NAUSEA AND/OR VOMITING Microbiology 10/23/17 04:05 Urine - Urine Clean Catch Urine Culture - Preliminary Lactose Fermenting Neg Bacilli 10/23/17 04:20 Blood - Peripheral Venous Blood Culture - Preliminary Group D Strep Or Entero Coccus 10/23/17 10:55 Blood - Brenda Cath Blood Culture - Preliminary Pending Organism 10/23/17 04:20 Blood - Peripheral Venous Blood Culture - Preliminary Pending Organism 10/23/17 07:15 Nasopharyngeal Swab Influenza Types A,B Antigen (KRISSY) - Final 10/23/17 07:15 Nasopharyngeal Swab - Final ASSESSMENT/PLAN: A: 72-year-old woman with history of breast cancer with metastasis to the brain status post chemotherapy and gamma knife who was admitted with pneumonia and UTI now with bacteremia. P: Bacteremia- GDS vs Enterococcus - Rocephin - Vanco - echo pending final culture - ID following Leukocytosis - Cultures as above - Rocephin - D/C Zithromax - Started Vanco - trend CBC - ID follow UTI - Rocephin - Cultures as above Metastatic breast Cancer - oncologist does not have privileges at [facility] - Heme/onc consult pending Oral candidiasis - fluconazole - magic mouthwash Thrombocytopenia - uptrending - daily CBC F/E/N - regular diet - replete prn PPX - OOB Dispo- requires continued inpatient treatment Visit type - Emergency Visit Emergency Visit: Yes ED Registration Date: 10/23/17 Care time: The patient presented to the Emergency Department on the above date and was hospitalized for further evaluation of their emergent condition. - New Patient This patient is new to me today: Yes Date on this admission: 10/25/17 - Critical Care Critical Care patient: No
--- NOTE | 2017-10-24 13:04 | CONS ---
DATE OF CONSULTATION: 10/23/2017 HISTORY OF PRESENT ILLNESS: The patient is a 72-year-old female with a history of metastatic breast cancer evaluated for pneumonia. She was admitted to the hospital with a several-day history of worsening dyspnea on exertion and cough, as well as generalized weakness. She had recently been treated with Zithromax and Bactrim for a respiratory tract illness. She received chemotherapy prior to admission and had received 2 injections of Neupogen. On admission, chest x-ray showed infiltrates. CT scan confirms the presence of right middle lobe, right lower lobe and left lower lobe infiltrates. Patient reports dyspnea, cough productive of whitish sputum. She denies any chest pain. No hemoptysis. She has had low-grade fever. White blood cell count markedly elevated. She denies any ill contacts, no recent hospitalizations. She is a nonsmoker. PAST MEDICAL HISTORY: Positive for breast CA with metastases to the lung and brain, history of seizure disorder, Von Willebrand disease. PAST SURGICAL HISTORY: Status post gastric band, appendectomy, tubal ligation, cataract surgery. ALLERGIES: No known allergies. OUTPATIENT MEDICATIONS: Include dexamethasone and Zithromax, chemotherapy regimen Cytoxan 5-FU fu , methotrexate. SOCIAL HISTORY: She resides at home with family members. No active tobacco use. SYSTEMS REVIEW: Neurologic: Positive for brain metastases and seizure disorder Cardiac: Negative for chest pain or palpitations. Respiratory: As per HPI. Gastrointestinal: Negative for vomiting or diarrhea. Genitourinary: Negative for urinary tract infection. LABORATORY DATA: White count 23.9 with left shift, hematocrit 33.1, platelet count 123. BUN 17, creatinine 0.9. Urinalysis 15 white cells. Influenza swab negative. PHYSICAL EXAMINATION: General: She is awake and alert, mildly dyspneic on examination. Vital signs: Temperature 98.0, maximum temperature 100.3, blood pressure 91/40, pulse 78 and regular, respirations 19 per minute. Positive alopecia. HEENT: Sclerae anicteric. Positive thrush. Neck: Supple. Port site. No erythema or tenderness. Heart: Heart sounds S1, S2. Lungs: Bilateral rhonchi and occasional wheeze. Abdomen: Obese, soft, nontender. Extremities: Positive for edema. IMPRESSION: 1. Multilobar pneumonia. 2. Possible sepsis secondary to pneumonia. 3. Metastatic breast cancer. 4. Leukocytosis, multifactorial (infection, Neupogen). Await culture results, continue empiric Zithromax and ceftriaxone for empiric coverage in this non-neutropenic patient, sputum culture, urine legionella antigen. Will follow. Thank you for the kind referral. EDMUNDO RODRIGUEZ M.D. [id number]
--- NOTE | 2017-10-24 15:10 | CONSULT ---
Consult Consult Specialty:: onc Referred by:: sherlyn nunez Reason for Consultation:: breast cancer - History of Present Illness Chief Complaint: 72 yof w met breast cancer w brain and lung involvement adm w progressive weakness. Last rec'd CMF 10/07. Subsequently noted cough, inc in weakness and was eval'd in ED last wk. Given azithro. Sxs progressed and was found to be neutropenic in Dr Main's office. Given neupogen and started Bactrim. Proceeded to ED yest when family noted weakness increasing. denies fever, pain, diarrhea. Very poor intake and non-productive cough. Hx noteworthy for recent POD noted in brain. s/p WBRT last year and SRS more recently planned - History Source History Provided By: Patient, Family Member, Medical Record - Alcohol/Substance Use Hx Alcohol Use: Yes (RARELY) - Smoking History Smoking history: Never smoked Have you smoked in the past 12 months: No Home Medications - Allergies Allergies/Adverse Reactions: Allergies Allergy/AdvReac Type Severity Reaction Status Date / Time No Known Drug Allergies Allergy Verified 09/04/15 11:26 platelets AdvReac Chills Uncoded 08/15/15 07:05 - Home Medications Home Medications: Ambulatory Orders Benzonatate [Tessalon Pearls -] 100 mg PO TID 10/23/17 Chemo Theapy Diluent No.1/Pf [Elliotts B Solution Ampule] 1 ml IT ASDIR Nystatin Oral Suspension - [Nystatin Oral Susp 228832 Units/5 ML -] 500,000 units PO TID 10/23/17 Sulfamethoxazole/Trimethoprim [Bactrim Ds -] 1 tab PO BID 10/23/17 Review of Systems - Review of Systems Constitutional: reports: Lethargy, Loss of Appetite, Weakness Respiratory: reports: Cough Gastrointestinal: reports: No Symptoms Physical Exam Vital Signs: Vital Signs Temperature 98.5 F 10/24/17 14:35 Pulse Rate 103 H 10/24/17 14:35 Respiratory Rate 20 10/24/17 14:35 Blood Pressure 112/63 10/24/17 14:35 O2 Sat by Pulse Oximetry (%) 97 10/24/17 14:35 Constitutional: Yes: No Distress (non-toxic, pale, frail) HENT: Yes: Other (posterior dry mucositis; no thrush) Respiratory: Yes: Other (few wheezes R PAC fxn'l, NT, no erythema) Gastrointestinal: Yes: Soft Edema: No Peripheral Pulses WNL: Yes Integumentary: Yes: WNL Neurological: Yes: Other (gen weakness) Labs: CBC, BMP 10/24/17 08:52 10/24/17 08:52 Assessment/Plan met breast cancer s/p CMF 10/07 multilobar pna, UTI, strep bacteremia Leukocytosis post neupogen monitor daily cbc and will re-dose neupogen as needed to maintain adequate neutrophils cont abx as outlined per ID mech dvt ppx for now
[2017-10-24] MEDS: CEFTRIAXONE 2 GM/100 ML BAG IVPB SCH (16:00)
[2017-10-25] MEDS ORDERED: REFRIGERATED ANITBIOTICS ONE ×2 (05:44→09:11)
[2017-10-25] MEDS: MAG HYDROX/ALH/SMC/DPHA/LIDO 240 ML MOUTHWASH MM SCH ×3 (06:42→18:27)
[2017-10-25 08:34] LABS: HEMATOCRIT 29.9 % (32.4-45.2); HEMOGLOBIN 10.2 GM/dl (10.7-15.3); MCH 32.3 pg (25.7-33.7); MCHC 34.1 g/dl (32.0-36.0); MEAN PLT VOLUME 8.5 fl (7.5-11.1); PLATELET COUNT 70 K/MM3 (134-434); RBC 3.15 M/mm3 (3.60-5.2); RDW 16.1 % (11.6-15.6); WHITE BLOOD COUNT 8.1 K/mm3 (4.0-10.8)
[2017-10-25 08:55] LABS: ALBUMIN 2.1 g/dl (3.5-5.0); ALK PHOS 107 U/L (32-92); ANION GAP 9 (8-16); BILIRUBIN,TOTAL 0.3 mg/dl (0.2-1.0); BLOOD UREA NITROGEN 8 mg/dl (7-18); CALCIUM 7.9 mg/dl (8.4-10.2); CHLORIDE 104 mmol/L (98-107); CO2 28 mmol/L (22-28); CREATININE 0.5 mg/dl (0.6-1.3); GLUCOSE,RANDOM 84 mg/dl (74-106); PHOSPHOROUS 2.7 mg/dl (2.5-4.6); POTASSIUM 3.2 mmol/L (3.5-5.1); SGOT/AST 15 U/L (10-42); SGPT/ALT 27 U/L (10-40); SODIUM 141 mmol/L (136-145); TOT PROT 4.3 g/dl (6.4-8.3)
[2017-10-25] MEDS: VANCOMYCIN 1,000 MG in DEXTROSE 5%-WATER - 250 ML IVPB SCH (09:18)
[2017-10-25] MEDS: ALBUTEROL SO4 2.5/IPRATROPIUM 0.5 INH SOL 3 ML VIAL.NEB. NEB SCH ×4 (09:19→22:10)
[2017-10-25] MEDS: FLUCONAZOLE 100 MG TABLET (UD) PO SCH (09:19)
--- NOTE | 2017-10-25 09:50 | PN ---
Physical Exam: SUBJECTIVE: Patient seen and examined. Pateint states she has more energy today and feels "stronger." OBJECTIVE: Vital Signs Period Temp Pulse Resp BP Sys/Blum Pulse Ox Last 24 Hr 97.6 F-98.5 F 98-103 19-20 99-112/61-72 95-98 GENERAL: The patient is awake, alert, and fully oriented, in no acute distress. HEAD: Alopecia. LUNGS: Breath sounds equal, clear to auscultation bilaterally, no wheezes, no crackles, no accessory muscle use. HEART: Regular rate and rhythm, S1, S2 without murmur, rub or gallop. ABDOMEN: SNTND EXTREMITIES: 2+ pulses, warm, well-perfused, no edema. NEUROLOGICAL: Left lid lag. PSYCH: Normal mood, normal affect. Laboratory Results - last 24 hr 10/25/17 10/25/17 06:00 06:00 WBC 8.1 D RBC 3.15 L Hgb 10.2 L Hct 29.9 L MCV 95.0 MCH 32.3 MCHC 34.1 RDW 16.1 H Plt Count 70 L MPV 8.5 Neutrophils % No Result Required. Lymphocytes % No Result Required. Sodium 141 Potassium 3.2 L Chloride 104 Carbon Dioxide 28 Anion Gap 9 BUN 8 D Creatinine 0.5 L D Creat Clearance w eGFR > 60 Random Glucose 84 D Calcium 7.9 L Phosphorus 2.7 Total Bilirubin 0.3 D AST 15 D ALT 27 Alkaline Phosphatase 107 H Total Protein 4.3 L Albumin 2.1 L Active Medications Generic Name Dose Route Start Last Admin Trade Name Freq PRN Reason Stop Dose Admin Acetaminophen 650 mg 10/23/17 10:10 Tylenol - PO Q6H PRN FEVER Albuterol Sulfate 1 amp 10/23/17 07:30 Ventolin 0.083% Nebulizer Soln - NEB Q4H PRN SHORT OF BREATH/WHEEZING Albuterol/Ipratropium 1 amp 10/23/17 12:00 10/25/17 09:19 Duoneb - NEB 1 amp RQID LILLIE Administration Fluconazole 100 mg 10/24/17 10:00 10/25/17 09:19 Diflucan - PO 100 mg DAILY LILLIE Administration Sodium Chloride 1,000 mls @ 100 mls/hr 10/23/17 09:45 10/24/17 09:45 Normal Saline - IV 100 mls/hr ASDIR LILLIE Administration Ceftriaxone Sodium 2 gm in 100 mls @ 200 mls/hr 10/23/17 16:00 10/24/17 16:00 Rocephin 2gm Ivpb (Pre-Docked) IVPB 200 mls/hr DAILY@1600 [facility] Administration Vancomycin HCl 1,000 mg/ 250 mls @ 200 mls/hr 10/24/17 10:00 10/25/17 09:18 Dextrose IVPB 200 mls/hr Q12H LILLIE Administration Lidocaine/Aluminum/Magnesium/Simeth 5 ml 10/23/17 12:00 10/25/17 06:42 Magic Mouthwash *Sjr Formula* - MM 5 ml Q6HPO LILLIE Administration Ondansetron HCl 4 mg 10/23/17 10:07 Zofran Odt - SL Q8H PRN NAUSEA AND/OR VOMITING Microbiology 10/23/17 04:20 Blood - Peripheral Venous Blood Culture - Preliminary Enterococcus Faecalis 10/23/17 04:05 Urine - Urine Clean Catch Urine Culture - Final Escherichia Coli 10/23/17 04:20 Blood - Peripheral Venous Blood Culture - Preliminary Group D Strep Or Entero Coccus 10/23/17 10:55 Blood - Brenda Cath Blood Culture - Preliminary Group D Strep Or Entero Coccus 10/23/17 07:15 Nasopharyngeal Swab Influenza Types A,B Antigen (KRISSY) - Final 10/23/17 07:15 Nasopharyngeal Swab - Final ASSESSMENT/PLAN: A: 72-year-old woman with history of breast cancer with metastasis to the brain status post chemotherapy and gamma knife who was admitted with pneumonia and UTI now with bacteremia. P: Enterococcus Bacteremia - Rocephin - Vanco - echo pending final culture - ID following Leukocytosis - resolved - Cultures as above - Rocephin - D/C Zithromax - Started Vanco - trend CBC - ID follow UTI - Rocephin - Cultures as above Metastatic breast Cancer - oncologist does not have privileges at [facility] - Heme/onc consult pending Oral candidiasis - fluconazole - magic mouthwash Thrombocytopenia - uptrending - daily CBC Hypokalemia - KCL 40mEq po - trend daily F/E/N - regular diet - replete prn PPX - OOB Dispo- requires continued inpatient treatment Visit type - Emergency Visit Emergency Visit: Yes ED Registration Date: 10/23/17 Care time: The patient presented to the Emergency Department on the above date and was hospitalized for further evaluation of their emergent condition. - New Patient This patient is new to me today: No - Critical Care Critical Care patient: No
[2017-10-25 10:29] LABS: PLATELET ESTIMATE DECREASED
[2017-10-25] MEDS ORDERED: POTASSIUM CHLORIDE ORAL LIQUID 20 MEQ/15 ML PO ONE (10:46)
[2017-10-25] MEDS ORDERED: ARTIFICIAL TEARS (POLYVINYL ALCOHOL 1.4%) OPTH DROPS OU PRN (13:07)
[2017-10-25] MEDS ORDERED: AMPICILLIN SODIUM 2 GM VIAL ONE (16:40)
[2017-10-25] MEDS ORDERED: GENTAMICIN SO4 80 MG/2 ML VIAL ONE (16:41)
[2017-10-25] MEDS: GENTAMICIN IVPB SCH (16:49)
[2017-10-25] MEDS: AMPICILLIN - 2 GM in SODIUM CHLORIDE 100 ML IVPB SCH ×3 (16:49→22:13)
[2017-10-25] MEDS: SODIUM CHLORIDE IVPB SCH (16:49)
[2017-10-26] MEDS: MAG HYDROX/ALH/SMC/DPHA/LIDO 240 ML MOUTHWASH MM SCH ×4 (00:40→18:04)
[2017-10-26] MEDS: GENTAMICIN IVPB SCH ×2 (01:20→14:20)
[2017-10-26] MEDS: SODIUM CHLORIDE IVPB SCH ×2 (01:20→14:20)
[2017-10-26] MEDS: AMPICILLIN - 2 GM in SODIUM CHLORIDE 100 ML IVPB SCH ×6 (02:10→21:58)
[2017-10-26] MEDS ORDERED: REFRIGERATED ANITBIOTICS ONE ×4 (05:16→23:47)
--- NOTE | 2017-10-26 08:30 | PN ---
Physical Exam: SUBJECTIVE: Patient seen and examined, reports feeling improved, ambulated patient to bathroom does report dyspnea upon exertion. OBJECTIVE: Vital Signs Period Temp Pulse Resp BP Sys/Blum Pulse Ox Last 24 Hr 97.6 F-98.4 F 97-111 19-19 99-107/57-66 95-98 GENERAL: The patient is awake, alert, and fully oriented, in no acute distress. HEAD: Normal with no signs of trauma. EYES: PERRL, extraocular movements intact, sclera anicteric, conjunctiva clear. No ptosis. ENT: Ears normal, nares patent, oropharynx clear without exudates, moist mucous membranes. NECK: Trachea midline, full range of motion, supple. LUNGS: Breath sounds equal, clear to auscultation bilaterally, no wheezes, no crackles, no accessory muscle use. HEART: Regular rate and rhythm, S1, S2 without murmur, rub or gallop. ABDOMEN: Soft, nontender, nondistended, normoactive bowel sounds, no guarding, no rebound, no hepatosplenomegaly, no masses. EXTREMITIES: 2+ pulses, warm, well-perfused, no edema. NEUROLOGICAL: Cranial nerves II through XII grossly intact. Normal speech, gait not observed. PSYCH: Normal mood, normal affect. SKIN: Warm, dry, normal turgor, no rashes or lesions noted, alleyn dressing to cocycox Laboratory Results - last 24 hr CBC WBC 8.2 K/mm3 (4.0-10.8) 10/26/17 06:00 RBC 2.83 M/mm3 (3.60-5.2) L 10/26/17 06:00 Hgb 9.4 GM/dl (10.7-15.3) L 10/26/17 06:00 Hct 27.0 % (32.4-45.2) L 10/26/17 06:00 MCV 95.4 fl (80-96) 10/26/17 06:00 MCH 33.4 pg (25.7-33.7) 10/26/17 06:00 MCHC 35.0 g/dl (32.0-36.0) 10/26/17 06:00 RDW 16.2 % (11.6-15.6) H 10/26/17 06:00 Plt Count 66 K/MM3 (134-434) L 10/26/17 06:00 MPV 8.6 fl (7.5-11.1) 10/26/17 06:00 Neutrophils % 80.0 % (42.8-82.8) 10/26/17 06:00 Neutrophils % (Manual) 80.0 % (42.8-82.8) 10/25/17 06:00 Band Neutrophils % 4.0 % (0-10) 10/25/17 06:00 Lymphocytes % 10.0 % (8-40) 10/26/17 06:00 Lymphocytes % (Manual) 6.0 % (8-40) L 10/25/17 06:00 Monocytes % 9.5 % (3.8-10.2) 10/26/17 06:00 Monocytes % (Manual) 10 % (3.8-10.2) 10/25/17 06:00 Eosinophils % 0.0 % (0-4.5) 10/26/17 06:00 Eosinophils % (Manual) 0.0 % (0-4.5) 10/23/17 02:40 Basophils % 0.5 % (0-2.0) 10/26/17 06:00 Basophils % (Manual) 9.0 % (0-2.0) H* 10/23/17 02:40 Myelocytes % (Man) 0 % (0-2) 10/23/17 02:40 Metamyelocytes 0 % (0-2) 10/23/17 02:40 Hypochromia 0 10/23/17 02:40 Toxic Granulation 0 10/23/17 02:40 Dohle Bodies 0 10/23/17 02:40 Platelet Estimate Decreased 10/25/17 06:00 Polychromasia 0 10/23/17 02:40 Poikilocytosis 0 10/23/17 02:40 Basophilic Stippling 0 10/23/17 02:40 Anisocytosis 0 10/23/17 02:40 Microcytosis 0 10/23/17 02:40 Macrocytosis 0 10/23/17 02:40 Spherocytes 0 10/23/17 02:40 Sickle Cells 0 10/23/17 02:40 Target Cells 0 10/23/17 02:40 Tear Drop Cells 0 10/23/17 02:40 Ovalocytes 0 10/23/17 02:40 Stomatocytes 0 10/23/17 02:40 Helmet Cells 0 10/23/17 02:40 [place] Bodies 0 10/23/17 02:40 [place] Rings 0 10/23/17 02:40 [place] Cells 0 10/23/17 02:40 Acanthocytes (Spur) 0 10/23/17 02:40 Fragmented RBCs 0 10/23/17 02:40 Schistocytes 0 10/23/17 02:40 CMP Sodium 138 mmol/L (136-145) 10/26/17 06:00 Potassium 3.4 mmol/L (3.5-5.1) L 10/26/17 06:00 Chloride 102 mmol/L (98-107) 10/26/17 06:00 Carbon Dioxide 28 mmol/L (22-28) 10/26/17 06:00 Anion Gap 8 (8-16) 10/26/17 06:00 BUN 8 mg/dl (7-18) 10/26/17 06:00 Creatinine 0.5 mg/dl (0.6-1.3) L 10/26/17 06:00 Creat Clearance w eGFR > 60 (>60) 10/25/17 06:00 Random Glucose 92 mg/dl (74-106) 10/26/17 06:00 Lactic Acid 1.5 mmol/L (0.0-2.0) 10/23/17 22:00 Calcium 7.9 mg/dl (8.4-10.2) L 10/26/17 06:00 Phosphorus 2.9 mg/dl (2.5-4.6) 10/26/17 06:00 Magnesium 1.5 mg/dL (1.8-2.4) L 10/26/17 06:00 Total Bilirubin 0.3 mg/dl (0.2-1.0) D 10/25/17 06:00 AST 15 U/L (10-42) D 10/25/17 06:00 ALT 27 U/L (10-40) 10/25/17 06:00 Alkaline Phosphatase 107 U/L (32-92) H 10/25/17 06:00 Creatine Kinase 67 IU/L (26-192) 10/23/17 02:40 Troponin I < 0.02 ng/ml (0.00-0.05) 10/23/17 02:40 Total Protein 4.3 g/dl (6.4-8.3) L 10/25/17 06:00 Albumin 2.1 g/dl (3.5-5.0) L 10/25/17 06:00 Active Medications Generic Name Dose Route Start Last Admin Trade Name Freq PRN Reason Stop Dose Admin Acetaminophen 650 mg 10/23/17 10:10 Tylenol - PO Q6H PRN FEVER Albuterol Sulfate 1 amp 10/23/17 07:30 Ventolin 0.083% Nebulizer Soln - NEB Q4H PRN SHORT OF BREATH/WHEEZING Albuterol/Ipratropium 1 amp 10/23/17 12:00 10/25/17 22:10 Duoneb - NEB 1 amp RQID LILLIE Administration Artificial Tears 1 drop 10/25/17 13:07 Artificial Tears OU BID PRN DRY EYES Fluconazole 100 mg 10/24/17 10:00 10/25/17 09:19 Diflucan - PO 100 mg DAILY LILLIE Administration Sodium Chloride 1,000 mls @ 100 mls/hr 10/23/17 09:45 10/24/17 09:45 Normal Saline - IV 100 mls/hr ASDIR LILLIE Administration Ampicillin Sodium 2 gm/ Sodium 100 mls @ 200 mls/hr 10/25/17 14:15 10/26/17 05:16 Chloride IVPB 200 mls/hr Q4H LILLIE Administration Gentamicin Sulfate 50 mg/ 101.25 mls @ 100 mls/hr 10/25/17 14:15 10/26/17 01: 20 Sodium Chloride IVPB 100 mls/hr Q12H LILLIE Administration Lidocaine/Aluminum/Magnesium/Simeth 5 ml 10/23/17 12:00 10/26/17 05:17 Magic Mouthwash *Sjr Formula* - MM 5 ml Q6HPO LILLIE Administration Ondansetron HCl 4 mg 10/23/17 10:07 Zofran Odt - SL Q8H PRN NAUSEA AND/OR VOMITING Microbiology 10/25/17 06:00 Urine For Antigen Detection Legionella Antigen - Final, negative 10/25/17 06:00 Urine For Antigen Detection Streptococcus pneumoniae Antigen (M - Final, negative 10/23/17 10:55 Blood - Brenda Cath Blood Culture - Final Enterococcus Faecalis 10/23/17 04:20 Blood - Peripheral Venous Blood Culture - Final Enterococcus Faecalis 10/23/17 04:20 Blood - Peripheral Venous Blood Culture - Final Enterococcus Faecalis 10/23/17 04:05 Urine - Urine Clean Catch Urine Culture - Final Escherichia Coli 10/23/17 07:15 Nasopharyngeal Swab Influenza Types A,B Antigen (KRISSY) - Final , negative 10/23/17 07:15 Nasopharyngeal Swab - Final IMAGING chest CT 10/23/17: interval development of right middle & lower lobe, left lower lobe infilitrate, increased pulmonary artery pressure. chest xray 10/22/17: pregressive athelatic changes ekg 10/23/17: nsr with supraventicular changes ASSESSMENT/PLAN: 1) ID Enterococcus Bacteremia - continue ampicillin and gentamycin (10/25 -) vancomyin (10/25-10/26) rocephin (-10/26) zithromax (10/23-10/24) - repeat blood cultures ordered from port and peripheral venous - pending echo - Dr Garibay, ID consulted and following Leukocytosis resolved UTI - ecoli, sensitive to gentamycin oral candidasis -continue fluconazole and magic mouthwash 2) heme/onc Metastatic breast Cancer - Dr Gandhi,oncologist does not have privileges at [facility] spoke to KARIME Powell on 10/23/17, made aware of patient's condition and plan - Heme/onc, Dr Sanchez, consulted and following Thrombocytopenia - plt 66, strict monitoring F/E/N - regular diet - replete potassium and magnesium PPX - OOB Dispo- requires continued inpatient treatment Problem List - Problems (1) Leukocytosis Code(s): D72.829 - ELEVATED WHITE BLOOD CELL COUNT, UNSPECIFIED Qualifiers: Leukocytosis type: bandemia Qualified Code(s): D72.825 - Bandemia (2) Urinary tract infection Code(s): N39.0 - URINARY TRACT INFECTION, SITE NOT SPECIFIED (3) Breast cancer metastasized to brain Code(s): C50.919 - MALIGNANT NEOPLASM OF UNSP SITE OF UNSPECIFIED FEMALE BREAST ; C79.31 - SECONDARY MALIGNANT NEOPLASM OF BRAIN (4) Von Willebrand disease Code(s): D68.0 - VON WILLEBRAND'S DISEASE (5) Thrush, oral Code(s): B37.0 - CANDIDAL STOMATITIS Visit type - Emergency Visit Emergency Visit: Yes ED Registration Date: 10/23/17 Care time: The patient presented to the Emergency Department on the above date and was hospitalized for further evaluation of their emergent condition. - New Patient This patient is new to me today: No - Critical Care Critical Care patient: No - Discharge Referral Referred to [facility] Med P.C.: No
[2017-10-26] MEDS: ALBUTEROL SO4 2.5/IPRATROPIUM 0.5 INH SOL 3 ML VIAL.NEB. NEB SCH ×5 (08:35→20:02)
--- NOTE | 2017-10-26 09:04 | PN ---
Progress Note, Physician History of Present Illness: Awake but weak appearing No focal complaint. No N/V/D. No abdominal pain or dysuria No pain at port site Slightly tachypneic at rest + cough Afebrile WBC 8.1 plt 70 Blood c/s Enterococcus - Current Medication List Current Medications: Active Medications Acetaminophen (Tylenol -) 650 mg PO Q6H PRN PRN Reason: FEVER Albuterol Sulfate (Ventolin 0.083% Nebulizer Soln -) 1 amp NEB Q4H PRN PRN Reason: SHORT OF BREATH/WHEEZING Albuterol/Ipratropium (Duoneb -) 1 amp NEB RQID [facility] Last Admin: 10/26/17 08:35 Dose: 1 amp Artificial Tears (Artificial Tears) 1 drop OU BID PRN PRN Reason: DRY EYES Fluconazole (Diflucan -) 100 mg PO DAILY [facility] Last Admin: 10/25/17 09:19 Dose: 100 mg Sodium Chloride (Normal Saline -) 1,000 mls @ 100 mls/hr IV ASDIR [facility] Last Admin: 10/24/17 09:45 Dose: 100 mls/hr Ampicillin Sodium 2 gm/ Sodium (Chloride) 100 mls @ 200 mls/hr IVPB Q4H [facility] Last Admin: 10/26/17 05:16 Dose: 200 mls/hr Gentamicin Sulfate 50 mg/ (Sodium Chloride) 101.25 mls @ 100 mls/hr IVPB Q12H [facility] Last Admin: 10/26/17 01:20 Dose: 100 mls/hr Lidocaine/Aluminum/Magnesium/Simeth (Magic Mouthwash *Sjr Formula* -) 5 ml MM Q6HPO [facility] Last Admin: 10/26/17 05:17 Dose: 5 ml Ondansetron HCl (Zofran Odt -) 4 mg SL Q8H PRN PRN Reason: NAUSEA AND/OR VOMITING - Objective Vital Signs: Vital Signs Temperature 97.6 F 10/26/17 06:31 Pulse Rate 107 H 10/26/17 08:55 Respiratory Rate 19 10/26/17 07:50 Blood Pressure 100/57 10/26/17 06:31 O2 Sat by Pulse Oximetry (%) 98 10/26/17 08:55 Constitutional: Yes: Obese Eyes: Yes: Conjunctiva Clear Cardiovascular: Yes: Regular Rate and Rhythm, S1, S2 Respiratory: Yes: Diminished, Rhonchi Gastrointestinal: Yes: Normal Bowel Sounds, Soft, Abdomen, Obese. No: Tenderness Edema: Yes Edema: LLE: 2+, RLE: 2+ Integumentary: Yes: Other (port site no erythema/tenderness) Labs: CBC, BMP 10/25/17 06:00 10/25/17 06:00 INR, PTT INR 1.17 (0.82-1.09) 10/23/17 16:10 Assessment/Plan Enterococcal bacteremia/ sepsis ? occult GI focus ? Possible port infection Multilobar pneumonia Metastatic carcinoma Leukocytosis- sepsis/ neupogen Repeat BC Echocardiogram R/O vegetations CT Abdomen / Pelvis Continue ampicillin/ gentamicin Monitor WBC
[2017-10-26 09:34] LABS: BASO % 0.5 % (0-2.0); HEMOGLOBIN 9.4 GM/dl (10.7-15.3); MCH 33.4 pg (25.7-33.7); MEAN CELL VOLUME 95.4 fl (80-96); MEAN PLT VOLUME 8.6 fl (7.5-11.1); MONO % 9.5 % (3.8-10.2); PLATELET COUNT 66 K/MM3 (134-434); RBC 2.83 M/mm3 (3.60-5.2); RDW 16.2 % (11.6-15.6); WHITE BLOOD COUNT 8.2 K/mm3 (4.0-10.8)
[2017-10-26] MEDS: FLUCONAZOLE 100 MG TABLET (UD) PO SCH (09:59)
[2017-10-26 10:00] LABS: ANION GAP 8 (8-16); BLOOD UREA NITROGEN 8 mg/dl (7-18); CALCIUM 7.9 mg/dl (8.4-10.2); CHLORIDE 102 mmol/L (98-107); CO2 28 mmol/L (22-28); CREATININE 0.5 mg/dl (0.6-1.3); GLUCOSE,RANDOM 92 mg/dl (74-106); MAGNESIUM 1.6 mg/dL (1.8-2.4); POTASSIUM 3.4 mmol/L (3.5-5.1); SODIUM 138 mmol/L (136-145)
[2017-10-26] MEDS: SODIUM CHLORIDE 1,000 ML IV SCH (10:00)
[2017-10-26 10:17] LABS: MAGNESIUM 1.5 mg/dL (1.8-2.4); PHOSPHOROUS 2.9 mg/dl (2.5-4.6)
[2017-10-26] MEDS: LACTOBACILLUS ACIDOPHILUS 1 EACH TAB (FP) PO SCH (10:40)
[2017-10-26] MEDS ORDERED: MAGNESIUM SULFATE 2 GM in SODIUM CHLORIDE 100 ML IVPB ONE (10:56)
[2017-10-26] MEDS ORDERED: SODIUM CHLORIDE 0.9%/KCL 20 MEQ/1,000 ML INFUS.BAG IV SCH (11:00)
[2017-10-26] MEDS ORDERED: POTASSIUM CHLORIDE TABS 20 MEQ TABLET.ER (FP) PO ONE (11:15)
[2017-10-26] MEDS ORDERED: MAGNESIUM SULF 50% (8.12 MEQ/2 ML-1 GM VIAL) IVPB ONE (11:15)
[2017-10-26] MEDS: RANITIDINE HCL 150 MG TABLET (FP) PO SCH (14:10)
[2017-10-26] MEDS ORDERED: PT OWN MED DRAWER 7, Y5N ONE ×3 (14:16→23:54)
[2017-10-26] MEDS: ACETAMINOPHEN 325 MG TABLET (FP) PO PRN (23:54)
[2017-10-26] MEDS: MELATONIN 5 MG TABLETS PO PRN (23:54)
[2017-10-27] MEDS: MAG HYDROX/ALH/SMC/DPHA/LIDO 240 ML MOUTHWASH MM SCH ×4 (00:06→18:15)
[2017-10-27] MEDS: SODIUM CHLORIDE IVPB SCH ×2 (02:10→13:48)
[2017-10-27] MEDS: AMPICILLIN - 2 GM in SODIUM CHLORIDE 100 ML IVPB SCH ×6 (02:10→22:07)
[2017-10-27] MEDS: GENTAMICIN IVPB SCH ×2 (02:10→13:48)
[2017-10-27] MEDS ORDERED: oxyCODONE HCL 5 MG TABLET PO ONE (03:23)
[2017-10-27 07:50] LABS: HEMATOCRIT 27.1 % (32.4-45.2); MCH 31.8 pg (25.7-33.7); MCHC 33.1 g/dl (32.0-36.0); MEAN PLT VOLUME 9.2 fl (7.5-11.1); PLATELET COUNT 67 K/MM3 (134-434); RBC 2.83 M/mm3 (3.60-5.2); RDW 16.2 % (11.6-15.6); WHITE BLOOD COUNT 8.7 K/mm3 (4.0-10.8)
[2017-10-27 08:10] LABS: ANION GAP 3 (8-16); BILIRUBIN,TOTAL 0.4 mg/dl (0.2-1.0); BLOOD UREA NITROGEN 11 mg/dl (7-18); CALCIUM 7.9 mg/dl (8.4-10.2); CHLORIDE 105 mmol/L (98-107); CO2 31 mmol/L (22-28); CREATININE 0.7 mg/dl (0.6-1.3); GLUCOSE,RANDOM 94 mg/dl (74-106); MAGNESIUM 1.9 mg/dL (1.8-2.4); PHOSPHOROUS 4.1 mg/dl (2.5-4.6); POTASSIUM 4.5 mmol/L (3.5-5.1); SGOT/AST 16 U/L (10-42); SGPT/ALT 23 U/L (10-40); SODIUM 139 mmol/L (136-145); TOT PROT 4.5 g/dl (6.4-8.3)
[2017-10-27] MEDS: SODIUM CHLORIDE 0.9%/KCL 20 MEQ/1,000 ML INFUS.BAG IV SCH (08:14)
[2017-10-27] MEDS: oxyCODONE HCL 5 MG TABLET PO PRN ×3 (08:33→20:53)
[2017-10-27] MEDS: ALBUTEROL SO4 2.5/IPRATROPIUM 0.5 INH SOL 3 ML VIAL.NEB. NEB SCH ×4 (08:36→20:53)
--- NOTE | 2017-10-27 08:38 | PN ---
Progress Note, Physician History of Present Illness: Awake but weak. Complains of R hip pain No pain at port site Afebrile WBC WNL plt 67 [facility] no identifiable infectious focus Echo result pending - Current Medication List Current Medications: Active Medications Acetaminophen (Tylenol -) 650 mg PO Q6H PRN PRN Reason: FEVER Last Admin: 10/26/17 23:54 Dose: 650 mg Albuterol Sulfate (Ventolin 0.083% Nebulizer Soln -) 1 amp NEB Q4H PRN PRN Reason: SHORT OF BREATH/WHEEZING Albuterol/Ipratropium (Duoneb -) 1 amp NEB RQID [facility] Last Admin: 10/26/17 20:02 Dose: 1 amp Artificial Tears (Artificial Tears) 1 drop OU BID PRN PRN Reason: DRY EYES Fluconazole (Diflucan -) 100 mg PO DAILY [facility] Last Admin: 10/26/17 09:59 Dose: 100 mg Ampicillin Sodium 2 gm/ Sodium (Chloride) 100 mls @ 200 mls/hr IVPB Q4H [facility] Last Admin: 10/27/17 06:11 Dose: 200 mls/hr Gentamicin Sulfate 50 mg/ (Sodium Chloride) 101.25 mls @ 100 mls/hr IVPB Q12H [facility] Last Admin: 10/27/17 02:10 Dose: 100 mls/hr Potassium Chloride/Sodium Chloride (Ns+20 Meq Kcl -) 20 meq in 1,000 mls @ 75 mls/hr IV ASDIR [facility] Last Admin: 10/27/17 08:14 Dose: 75 mls/hr Lactobacillus Acidophilus (Bacid -) 1 tab PO DAILY [facility] Last Admin: 10/26/17 10:40 Dose: 1 tab Lidocaine/Aluminum/Magnesium/Simeth (Magic Mouthwash *Sjr Formula* -) 5 ml MM Q6HPO [facility] Last Admin: 10/27/17 06:11 Dose: Not Given Melatonin (Melatonin) 5 mg PO HS PRN PRN Reason: INSOMNIA Last Admin: 10/26/17 23:54 Dose: 5 mg Ondansetron HCl (Zofran Odt -) 4 mg SL Q8H PRN PRN Reason: NAUSEA AND/OR VOMITING Oxycodone HCl (Roxicodone -) 5 mg PO Q6H PRN PRN Reason: PAIN LEVEL 7 - 10 Last Admin: 10/27/17 08:33 Dose: 5 mg Ranitidine HCl (Zantac -) 150 mg PO DAILY LILLIE Last Admin: 10/26/17 14:10 Dose: 150 mg - Objective Vital Signs: Vital Signs Temperature 97.4 F L 10/27/17 06:00 Pulse Rate 74 10/27/17 06:00 Respiratory Rate 18 10/27/17 06:00 Blood Pressure 90/50 10/27/17 06:00 O2 Sat by Pulse Oximetry (%) 100 10/27/17 02:00 Constitutional: Yes: No Distress Eyes: Yes: Conjunctiva Clear Cardiovascular: Yes: Regular Rate and Rhythm, S1, S2 Respiratory: Yes: Diminished Gastrointestinal: Yes: Normal Bowel Sounds, Soft, Abdomen, Obese. No: Tenderness Extremities: Yes: Other (No tenderness over R hip) Edema: Yes Edema: LLE: 1+, RLE: 1+ Integumentary: Yes: Other (port site no erythema/ tenderness) Labs: CBC, BMP 10/27/17 06:10 INR, PTT INR 1.17 (0.82-1.09) 10/23/17 16:10 Assessment/Plan Enterococcal bacteremia/sepsis Probable port infection R hip pain ? septic arthritis ? bone met Multilobar pneumonia Metastatic carcinoma Await repeat BC Await official echo report Xray R hip Continue ampicillin/ gentamicin Surgery consult to remove port
[2017-10-27 08:53] LABS: ALK PHOS 95 U/L (32-92)
--- NOTE | 2017-10-27 09:19 | PN ---
Physical Exam: SUBJECTIVE: Patient seen and examined, reports ongoing right hip pain. OBJECTIVE: patient 72-year-old woman with history of breast cancer with metastasis to the brain status post chemotherapy and gamma knife, admitted with pneumonia and UTI, and bacteremia. Vital Signs Period Temp Pulse Resp BP Sys/Blum Pulse Ox Last 24 Hr 97.4 F-98.1 F 55-114 18-20 90-110/44-63 94-100 GENERAL: The patient is awake, alert, and fully oriented, lethargic. HEAD: Normal with no signs of trauma. EYES: PERRL, extraocular movements intact, sclera anicteric, pale conjunctiva, No ptosis. ENT: Ears normal, nares patent, oropharynx clear without exudates, moist mucous membranes. NECK: Trachea midline, full range of motion, supple. LUNGS: Breath sounds equal, clear to auscultation bilaterally, no wheezes, no crackles, no accessory muscle use. HEART: Regular rate and rhythm, S1, S2 without murmur, rub or gallop. ABDOMEN: Soft, nontender, nondistended, normoactive bowel sounds, no guarding, no rebound, no hepatosplenomegaly, no masses. EXTREMITIES: 2+ pulses, warm, well-perfused, no edema. RIGHT LOWER EXTREMITY: pain localized to the right anterior hip upon movement, no erythema, no induration noted. NEUROLOGICAL: Cranial nerves II through XII grossly intact. Normal speech, gait not observed. PSYCH: Normal mood, normal affect. SKIN: Warm, dry, normal turgor, no rashes or lesions noted, alleyn dressing to cocycox Laboratory Results - last 24 hr CBC WBC 8.7 K/mm3 (4.0-10.8) 10/27/17 06:10 RBC 2.83 M/mm3 (3.60-5.2) L 10/27/17 06:10 Hgb 9.0 GM/dl (10.7-15.3) L 10/27/17 06:10 Hct 27.1 % (32.4-45.2) L 10/27/17 06:10 MCV 96.0 fl (80-96) 10/27/17 06:10 MCH 31.8 pg (25.7-33.7) 10/27/17 06:10 MCHC 33.1 g/dl (32.0-36.0) 10/27/17 06:10 RDW 16.2 % (11.6-15.6) H 10/27/17 06:10 Plt Count 67 K/MM3 (134-434) L 10/27/17 06:10 MPV 9.2 fl (7.5-11.1) 10/27/17 06:10 Neutrophils % No Result Required. 10/27/17 06:10 Neutrophils % (Manual) 75.0 % (42.8-82.8) 10/27/17 06:10 Band Neutrophils % 4.0 % (0-10) 10/27/17 06:10 Lymphocytes % No Result Required. 10/27/17 06:10 Lymphocytes % (Manual) 6.0 % (8-40) L 10/27/17 06:10 Monocytes % 9.5 % (3.8-10.2) 10/26/17 06:00 Monocytes % (Manual) 9 % (3.8-10.2) 10/27/17 06:10 Eosinophils % 0.0 % (0-4.5) 10/26/17 06:00 Eosinophils % (Manual) 0.0 % (0-4.5) 10/23/17 02:40 Basophils % 0.5 % (0-2.0) 10/26/17 06:00 Basophils % (Manual) 9.0 % (0-2.0) H* 10/23/17 02:40 Myelocytes % (Man) 2 % (0-2) 10/27/17 06:10 Metamyelocytes 2 % (0-2) 10/27/17 06:10 Hypochromia 0 10/23/17 02:40 Toxic Granulation 0 10/23/17 02:40 Dohle Bodies 0 10/23/17 02:40 Platelet Estimate Decreased 10/27/17 06:10 Polychromasia 0 10/23/17 02:40 Poikilocytosis 0 10/23/17 02:40 Basophilic Stippling 0 10/23/17 02:40 Anisocytosis 0 10/23/17 02:40 Microcytosis 0 10/23/17 02:40 Macrocytosis 0 10/23/17 02:40 Spherocytes 0 10/23/17 02:40 Sickle Cells 0 10/23/17 02:40 Target Cells 0 10/23/17 02:40 Tear Drop Cells 0 10/23/17 02:40 Ovalocytes 0 10/23/17 02:40 Stomatocytes 0 10/23/17 02:40 Helmet Cells 0 10/23/17 02:40 [place] Bodies 0 10/23/17 02:40 [place] Rings 0 10/23/17 02:40 Chanell Cells 0 10/23/17 02:40 Acanthocytes (Spur) 0 10/23/17 02:40 Fragmented RBCs 0 10/23/17 02:40 Schistocytes 0 10/23/17 02:40 CMP Sodium 139 mmol/L (136-145) 10/27/17 06:10 Potassium 4.5 mmol/L (3.5-5.1) D 10/27/17 06:10 Chloride 105 mmol/L (98-107) 10/27/17 06:10 Carbon Dioxide 31 mmol/L (22-28) H 10/27/17 06:10 Anion Gap 3 (8-16) L 10/27/17 06:10 BUN 11 mg/dl (7-18) D 10/27/17 06:10 Creatinine 0.7 mg/dl (0.6-1.3) D 10/27/17 06:10 Creat Clearance w eGFR > 60 (>60) 10/27/17 06:10 Random Glucose 94 mg/dl (74-106) 10/27/17 06:10 Lactic Acid 1.5 mmol/L (0.0-2.0) 10/23/17 22:00 Calcium 7.9 mg/dl (8.4-10.2) L 10/27/17 06:10 Phosphorus 4.1 mg/dl (2.5-4.6) D 10/27/17 06:10 Magnesium 1.9 mg/dL (1.8-2.4) D 10/27/17 06:10 Total Bilirubin 0.4 mg/dl (0.2-1.0) D 10/27/17 06:10 AST 16 U/L (10-42) 10/27/17 06:10 ALT 23 U/L (10-40) 10/27/17 06:10 Alkaline Phosphatase 95 U/L (32-92) H 10/27/17 06:10 Creatine Kinase 67 IU/L (26-192) 10/23/17 02:40 Troponin I < 0.02 ng/ml (0.00-0.05) 10/23/17 02:40 Total Protein 4.5 g/dl (6.4-8.3) L 10/27/17 06:10 Albumin 2.0 g/dl (3.5-5.0) L 10/27/17 06:10 Active Medications Generic Name Dose Route Start Last Admin Trade Name Freq PRN Reason Stop Dose Admin Acetaminophen 650 mg 10/23/17 10:10 10/26/17 23:54 Tylenol - PO 650 mg Q6H PRN Administration FEVER Albuterol Sulfate 1 amp 10/23/17 07:30 Ventolin 0.083% Nebulizer Soln - NEB Q4H PRN SHORT OF BREATH/WHEEZING Albuterol/Ipratropium 1 amp 10/23/17 12:00 10/27/17 08:36 Duoneb - NEB 1 amp RQID LILLIE Administration Artificial Tears 1 drop 10/25/17 13:07 Artificial Tears OU BID PRN DRY EYES Fluconazole 100 mg 10/24/17 10:00 10/26/17 09:59 Diflucan - PO 100 mg DAILY LILLIE Administration Ampicillin Sodium 2 gm/ Sodium 100 mls @ 200 mls/hr 10/25/17 14:15 10/27/17 06:11 Chloride IVPB 200 mls/hr Q4H LILLIE Administration Gentamicin Sulfate 50 mg/ 101.25 mls @ 100 mls/hr 10/25/17 14:15 10/27/17 02: 10 Sodium Chloride IVPB 100 mls/hr Q12H LILLIE Administration Potassium Chloride/Sodium Chloride 20 meq in 1,000 mls @ 75 mls/hr 10/27/17 07 :57 10/27/17 08:14 Ns+20 Meq Kcl - IV 75 mls/hr ASDIR LILLIE Administration Lactobacillus Acidophilus 1 tab 10/26/17 10:00 10/26/17 10:40 Bacid - PO 1 tab DAILY LILLIE Administration Lidocaine/Aluminum/Magnesium/Simeth 5 ml 10/23/17 12:00 10/27/17 06:11 Magic Mouthwash *Sjr Formula* - MM Not Given Q6HPO LILLIE Melatonin 5 mg 10/26/17 09:55 10/26/17 23:54 Melatonin PO 5 mg HS PRN Administration INSOMNIA Ondansetron HCl 4 mg 10/23/17 10:07 Zofran Odt - SL Q8H PRN NAUSEA AND/OR VOMITING Oxycodone HCl 5 mg 10/27/17 07:56 10/27/17 08:33 Roxicodone - PO 5 mg Q6H PRN Administration PAIN LEVEL 7 - 10 Ranitidine HCl 150 mg 10/26/17 13:15 10/26/17 14:10 Zantac - PO 150 mg DAILY LILLIE Administration Microbiology 10/26/17 10:40 Blood - Brenda Cath Blood Culture - Preliminary NO GROWTH OBTAINED AFTER 24 HOURS, INCUBATION TO CONTINUE FOR 4 DAYS. 10/26/17 10:00 Blood - Brenda Cath Blood Culture - Preliminary Pending Organism 10/25/17 06:00 Urine For Antigen Detection Legionella Antigen - Final 10/25/17 06:00 Urine For Antigen Detection Streptococcus pneumoniae Antigen (M - Final 10/23/17 10:55 Blood - Brenda Cath Blood Culture - Final Enterococcus Faecalis 10/23/17 04:20 Blood - Peripheral Venous Blood Culture - Final Enterococcus Faecalis 10/23/17 04:20 Blood - Peripheral Venous Blood Culture - Final Enterococcus Faecalis 10/23/17 04:05 Urine - Urine Clean Catch Urine Culture - Final Escherichia Coli 10/23/17 07:15 Nasopharyngeal Swab Influenza Types A,B Antigen (KRISSY) - Final 10/23/17 07:15 Nasopharyngeal Swab - Final IMAGING chest CT 10/23/17: interval development of right middle & lower lobe, left lower lobe infilitrate, increased pulmonary artery pressure. chest xray 10/22/17: pregressive athelatic changes ekg 10/23/17: nsr with supraventicular changes abd/pelvis ct with iv/oral contrast: no drainable abscess or fluid collection in the pelvis, small laying right pleural effusion, trace left pleural effusion ASSESSMENT/PLAN: 1) ID Enterococcus Bacteremia - continue ampicillin and gentamycin (10/25 -) vancomyin (10/25-10/26) rocephin (-10/26) zithromax (10/23-10/24) - repeat blood cultures from port, notable for prelim +, discussed with Dr Oquendo , vascular surgeon for port removal, will evaluate patient today - echo 10/26/17, ? density in left atrium, grade I diastolic dysfunction, ef 60- 65%, pt evaluated by cardiology, Dr Goldman, defer for JUMANA for now continue IV ABX - Dr Garibay, ID consulted and following UTI - ecoli, sensitive to gentamycin oral candidasis -continue fluconazole and magic mouthwash 2) heme/onc Metastatic breast Cancer - Dr Gandhi,oncologist does not have privileges at [facility], case discussed today with Dr Main, made aware of patient's condition and agrees with plan - Heme/onc, Dr Sanchez, consulted and following Thrombocytopenia - plt 66, strict monitoring F/E/N - regular diet - replete potassium and magnesium PPX - OOB Dispo- requires continued inpatient treatment Problem List - Problems (1) Leukocytosis Code(s): D72.829 - ELEVATED WHITE BLOOD CELL COUNT, UNSPECIFIED Qualifiers: Leukocytosis type: bandemia Qualified Code(s): D72.825 - Bandemia (2) Urinary tract infection Code(s): N39.0 - URINARY TRACT INFECTION, SITE NOT SPECIFIED (3) Breast cancer metastasized to brain Code(s): C50.919 - MALIGNANT NEOPLASM OF UNSP SITE OF UNSPECIFIED FEMALE BREAST ; C79.31 - SECONDARY MALIGNANT NEOPLASM OF BRAIN (4) Von Willebrand disease Code(s): D68.0 - VON WILLEBRAND'S DISEASE (5) Thrush, oral Code(s): B37.0 - CANDIDAL STOMATITIS Visit type - Emergency Visit Emergency Visit: Yes ED Registration Date: 10/23/17 Care time: The patient presented to the Emergency Department on the above date and was hospitalized for further evaluation of their emergent condition. - New Patient This patient is new to me today: No - Critical Care Critical Care patient: No - Discharge Referral Referred to [facility] No
[2017-10-27] MEDS ORDERED: PT OWN MED DRAWER 7, Y5N ONE ×4 (09:25→22:04)
[2017-10-27] MEDS: LACTOBACILLUS ACIDOPHILUS 1 EACH TAB (FP) PO SCH (09:34)
[2017-10-27] MEDS: FLUCONAZOLE 100 MG TABLET (UD) PO SCH (09:34)
[2017-10-27] MEDS: RANITIDINE HCL 150 MG TABLET (FP) PO SCH (09:34)
--- NOTE | 2017-10-27 10:26 | CON.CARD ---
Consult Consult Specialty:: Cardiology Referred by:: Hospitalist Reason for Consultation:: Cardiac evaluation - History of Present Illness Chief Complaint: Generalized weakness and bactermia History of Present Illness: Patient is a 72 year old female with underlying history of metastatic breast cancer (metastatic to brain and lung) s/p lumpectomy in 2006 with radiation therapy and then gamma knife due to brain metastasis and now chemotherapy with lung involvement. She also has history of Von Willerbrand's. She presents to [facility] with ongoing generalized weakness and worsening of cough. She also has difficulty ambulating and and an unsteady gait. She has leukocytosis with left shift and positive blood culture with enterococcus. Currently she denies chest pain, shortness of breath or palpitations. She denies paroxysmal nocturnal dyspnea or orthopnea. She denies fever or chills. She denies headache or lightheadedness at this time. - History Source History Provided By: Patient, Medical Record Limitations to Obtaining History: Clinical Condition - Past Medical History Pulmonary: Yes: Cancer (Metastatic from breast) Heme/Onc: Yes: Cancer (Breast CA with metastasis to brain and lung) - Past Surgical History Additional Surgical History: Lumpectomy and port removal and reimsertion - Alcohol/Substance Use Hx Alcohol Use: No (RARELY) - Smoking History Smoking history: Never smoked Have you smoked in the past 12 months: No Home Medications - Allergies Allergies/Adverse Reactions: Allergies Allergy/AdvReac Type Severity Reaction Status Date / Time No Known Drug Allergies Allergy Verified 09/04/15 11:26 platelets AdvReac Chills Uncoded 08/15/15 07:05 - Home Medications Home Medications: Ambulatory Orders Benzonatate [Tessalon Pearls -] 100 mg PO TID 10/23/17 Chemo Theapy Diluent No.1/Pf [Elliotts B Solution Ampule] 1 ml IT ASDIR Nystatin Oral Suspension - [Nystatin Oral Susp 408248 Units/5 ML -] 500,000 units PO TID 10/23/17 Sulfamethoxazole/Trimethoprim [Bactrim Ds -] 1 tab PO BID 10/23/17 Family Disease History - Family Disease History Family Disease History: CA: Grandparent, Brother (esophageal) Review of Systems - Review of Systems Constitutional: denies: Chills, Fever Cardiovascular: denies: Chest Pain, Palpitations, Shortness of Breath Respiratory: denies: Cough, Orthopnea, PND, SOB, SOB on Exertion Gastrointestinal: denies: Abdominal Pain, Constipation, Diarrhea, Melena, Nausea , Rectal Bleeding, Vomiting Musculoskeletal: denies: Joint Pain Neurological: reports: Unsteady Gait, Weakness. denies: Dizziness, Headache, Seizure, Syncope Vital Signs: Vital Signs Temperature 97.4 F L 10/27/17 06:00 Pulse Rate 74 10/27/17 06:00 Respiratory Rate 18 10/27/17 06:00 Blood Pressure 90/50 10/27/17 06:00 O2 Sat by Pulse Oximetry (%) 100 10/27/17 02:00 Eyes: Yes: Other (difficulty focusing) Neck: Yes: Supple Respiratory: Yes: Diminished Gastrointestinal: Yes: Normal Bowel Sounds, Soft. No: Tenderness Cardiovascular: Yes: Regular Rate and Rhythm JVD: No Carotid Bruit: No PMI: Non-Displaced Heart Sounds: Yes: S1, S2 Edema: No - Other Data Labs, Other Data: CBC, BMP 10/27/17 06:10 10/27/17 06:10 INR, PTT INR 1.17 (0.82-1.09) 10/23/17 16:10 Laboratory Results - last 24 hr 10/27/17 10/27/17 06:10 06:10 WBC 8.7 RBC 2.83 L Hgb 9.0 L Hct 27.1 L MCV 96.0 MCH 31.8 MCHC 33.1 RDW 16.2 H Plt Count 67 L MPV 9.2 Neutrophils % No Result Required. Lymphocytes % No Result Required. Sodium 139 Potassium 4.5 D Chloride 105 Carbon Dioxide 31 H Anion Gap 3 L BUN 11 D Creatinine 0.7 D Creat Clearance w eGFR > 60 Random Glucose 94 Calcium 7.9 L Phosphorus 4.1 D Magnesium 1.9 D Total Bilirubin 0.4 D AST 16 ALT 23 Alkaline Phosphatase 95 H Total Protein 4.5 L Albumin 2.0 L Sinus rhythm with APC Echo: Report Reviewed (Suspicious echodensity in LA etiology unclear, normal LV systolic function, trace MR) Problem List - Problems (1) 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 Code(s): C50.919 - MALIGNANT NEOPLASM OF UNSP SITE OF UNSPECIFIED FEMALE BREAST ; C78.00 - SECONDARY MALIGNANT NEOPLASM OF UNSPECIFIED LUNG Qualifiers: Laterality: right Qualified Code(s): C50.911 - Malignant neoplasm of unspecified site of right female breast; C78.00 - Secondary malignant neoplasm of unspecified lung; C78.00 - Secondary malignant neoplasm of unspecified lung; C78.00 - Secondary malignant neoplasm of unspecified lung; C78.00 - Secondary malignant neoplasm of unspecified lung (2) Bacteremia Code(s): R78.81 - BACTEREMIA (3) Leukocytosis Code(s): D72.829 - ELEVATED WHITE BLOOD CELL COUNT, UNSPECIFIED Qualifiers: Leukocytosis type: bandemia Qualified Code(s): D72.825 - Bandemia (4) Pneumonia Code(s): J18.9 - PNEUMONIA, UNSPECIFIED ORGANISM (5) Von Willebrand disease Code(s): D68.0 - VON WILLEBRAND'S DISEASE (6) Breast cancer metastasized to brain Code(s): C50.919 - MALIGNANT NEOPLASM OF UNSP SITE OF UNSPECIFIED FEMALE BREAST ; C79.31 - SECONDARY MALIGNANT NEOPLASM OF BRAIN Assessment/Plan 1. Suspicious [place] echodensity, etiology unclear 2. Bactermia possible source port infection 3. Breast CA with metastasis to brain and lung post lumpectomy, gamma knife and radiation and chemotherapy 4. Generalized weakness and unsteady gait PLAN: 1. Transthoracic echocardiography images are to be reviewed carefully. Ideally Transesophageal echocardiography would be helpful, but under the circumstances of her clinical status, I'm not certain that this will be beneficial in the assistant terminal manager plan. ID input to follow. Would continue antibiotic coverage as per ID 2. Oncology input to follow. Port is planned to be removed. Surveillance cultures are to be followed Supportive care Overall prognosis probably poor Wagner Goldman MD
[2017-10-27 11:30] LABS: PLATELET ESTIMATE DECREASED
[2017-10-27] MEDS ORDERED: MAGNESIUM SULF 50% (8.12 MEQ/2 ML-1 GM VIAL) IVPB ONE (12:00)
[2017-10-27] MEDS ORDERED: REFRIGERATED ANITBIOTICS ONE ×2 (13:35→17:57)
[2017-10-27] MEDS: ACETAMINOPHEN 325 MG TABLET (FP) PO PRN (14:23)
--- NOTE | 2017-10-27 19:59 | PN ---
Progress Note (short form) - Note Progress Note: Vascular Surgery Pt seen and examined with family at bedside. Port is infected. Will remove port carina at 2pm in OR NPO past midnight Romero schmitz DO
[2017-10-27] MEDS ORDERED: ZOLPIDEM TARTRATE 5 MG TABLET PO ONE (20:15)
[2017-10-28] MEDS ORDERED: REFRIGERATED ANITBIOTICS ONE ×3 (00:23→23:17)
[2017-10-28] MEDS: MAG HYDROX/ALH/SMC/DPHA/LIDO 240 ML MOUTHWASH MM SCH ×4 (00:24→19:13)
[2017-10-28] MEDS ORDERED: PT OWN MED DRAWER 7, Y5N ONE ×8 (01:25→23:26)
[2017-10-28] MEDS: AMPICILLIN - 2 GM in SODIUM CHLORIDE 100 ML IVPB SCH ×6 (01:36→22:22)
[2017-10-28] MEDS: SODIUM CHLORIDE IVPB SCH ×2 (01:59→15:49)
[2017-10-28] MEDS: GENTAMICIN IVPB SCH ×2 (01:59→15:49)
[2017-10-28] MEDS: oxyCODONE HCL 5 MG TABLET PO PRN (07:11)
[2017-10-28] MEDS: ALBUTEROL SO4 2.5/IPRATROPIUM 0.5 INH SOL 3 ML VIAL.NEB. NEB SCH ×4 (08:40→20:24)
--- NOTE | 2017-10-28 08:40 | PN ---
Progress Note, Physician History of Present Illness: Awake but weak. No c/o pain at rest No pain at port site Afebrile WBC 8.7 plt 67 [facility] no identifiable infectious focus - Current Medication List Current Medications: Active Medications Acetaminophen (Tylenol -) 650 mg PO Q6H PRN PRN Reason: FEVER Last Admin: 10/27/17 14:23 Dose: 650 mg Albuterol Sulfate (Ventolin 0.083% Nebulizer Soln -) 1 amp NEB Q4H PRN PRN Reason: SHORT OF BREATH/WHEEZING Albuterol/Ipratropium (Duoneb -) 1 amp NEB RQID [facility] Last Admin: 10/27/17 20:53 Dose: 1 amp Artificial Tears (Artificial Tears) 1 drop OU BID PRN PRN Reason: DRY EYES Fluconazole (Diflucan -) 100 mg PO DAILY [facility] Last Admin: 10/27/17 09:34 Dose: 100 mg Ampicillin Sodium 2 gm/ Sodium (Chloride) 100 mls @ 200 mls/hr IVPB Q4H [facility] Last Admin: 10/28/17 05:54 Dose: 200 mls/hr Gentamicin Sulfate 50 mg/ (Sodium Chloride) 101.25 mls @ 100 mls/hr IVPB Q12H [facility] Last Admin: 10/28/17 01:59 Dose: 100 mls/hr Potassium Chloride/Sodium Chloride (Ns+20 Meq Kcl -) 20 meq in 1,000 mls @ 75 mls/hr IV ASDIR [facility] Last Admin: 10/27/17 08:14 Dose: 75 mls/hr Lactobacillus Acidophilus (Bacid -) 1 tab PO DAILY [facility] Last Admin: 10/27/17 09:34 Dose: 1 tab Lidocaine/Aluminum/Magnesium/Simeth (Magic Mouthwash *Sjr Formula* -) 5 ml MM Q6HPO [facility] Last Admin: 10/28/17 06:47 Dose: Not Given Melatonin (Melatonin) 5 mg PO HS PRN PRN Reason: INSOMNIA Last Admin: 10/26/17 23:54 Dose: 5 mg Ondansetron HCl (Zofran Odt -) 4 mg SL Q8H PRN PRN Reason: NAUSEA AND/OR VOMITING Oxycodone HCl (Roxicodone -) 5 mg PO Q6H PRN PRN Reason: PAIN LEVEL 7 - 10 Last Admin: 10/28/17 07:11 Dose: 5 mg Ranitidine HCl (Zantac -) 150 mg PO DAILY [facility] Last Admin: 10/27/17 09:34 Dose: 150 mg - Objective Vital Signs: Vital Signs Temperature 98.6 F 10/28/17 06:35 Pulse Rate 85 10/28/17 06:35 Respiratory Rate 18 10/28/17 06:35 Blood Pressure 110/65 10/28/17 06:35 O2 Sat by Pulse Oximetry (%) 99 10/28/17 06:35 Constitutional: Yes: No Distress, Obese Eyes: Yes: Conjunctiva Clear Cardiovascular: Yes: Regular Rate and Rhythm, S1, S2 Respiratory: Yes: Diminished Gastrointestinal: Yes: Normal Bowel Sounds, Soft, Abdomen, Obese. No: Tenderness Edema: Yes Integumentary: Yes: Other (no erythema or tenderness at port site) Labs: INR, PTT INR 1.17 (0.82-1.09) 10/23/17 16:10 Assessment/Plan Enterococcal bacteremia/sepsis Probable port infection Possible endocarditis R hip pain ? septic arthritis ? bone met Multilobar pneumonia Metastatic carcinoma Repeat BC Continue ampicillin/ gentamicin Surgery consult appreciated. For port removal
[2017-10-28 08:48] LABS: INR 1.24 (0.82-1.09); PROTHROMBIN TIME (PATIENT) 13.8 SEC (10.2-13.0)
[2017-10-28] MEDS: SODIUM CHLORIDE 0.9%/KCL 20 MEQ/1,000 ML INFUS.BAG IV SCH (09:17)
[2017-10-28] MEDS: LACTOBACILLUS ACIDOPHILUS 1 EACH TAB (FP) PO SCH (09:59)
[2017-10-28] MEDS: RANITIDINE HCL 150 MG TABLET (FP) PO SCH (09:59)
[2017-10-28] MEDS: FLUCONAZOLE 100 MG TABLET (UD) PO SCH (09:59)
[2017-10-28 10:00] LABS: ANION GAP 7 (8-16); BLOOD UREA NITROGEN 13 mg/dl (7-18); CHLORIDE 102 mmol/L (98-107); CO2 28 mmol/L (22-28); CREATININE 0.5 mg/dl (0.6-1.3); GLUCOSE,RANDOM 104 mg/dl (74-106); MAGNESIUM 1.9 mg/dL (1.8-2.4); PHOSPHOROUS 3.6 mg/dl (2.5-4.6); POTASSIUM 4.2 mmol/L (3.5-5.1); SODIUM 137 mmol/L (136-145)
--- NOTE | 2017-10-28 10:01 | PN ---
Physical Exam: SUBJECTIVE: Patient seen and examined, reports ongoing right hip pain does report improving of cough OBJECTIVE: patient 72-year-old woman with history of breast cancer with metastasis to the brain status post chemotherapy and gamma knife, admitted with pneumonia and UTI, and bacteremia. Vital Signs Period Temp Pulse Resp BP Sys/Blum Pulse Ox Last 24 Hr 97.4 F-98.6 F 85-99 18-20 97-110/50-65 96-100 Laboratory Results - last 24 hr 10/27/17 10/27/17 10/28/17 06:10 13:23 08:20 Neutrophils % (Manual) 75.0 Band Neutrophils % 4.0 Lymphocytes % (Manual) 6.0 L Monocytes % (Manual) 9 Myelocytes % (Man) 2 Metamyelocytes 2 Platelet Estimate Decreased PT with INR 13.8 H INR 1.24 H Gentamicin Trough 1.0 Active Medications Generic Name Dose Route Start Last Admin Trade Name Freq PRN Reason Stop Dose Admin Acetaminophen 650 mg 10/23/17 10:10 10/27/17 14:23 Tylenol - PO 650 mg Q6H PRN Administration FEVER Albuterol Sulfate 1 amp 10/23/17 07:30 Ventolin 0.083% Nebulizer Soln - NEB Q4H PRN SHORT OF BREATH/WHEEZING Albuterol/Ipratropium 1 amp 10/23/17 12:00 10/28/17 08:40 Duoneb - NEB 1 amp RQID [facility]ILL[facility] Administration Artificial Tears 1 drop 10/25/17 13:07 Artificial Tears OU BID PRN DRY EYES Fluconazole 100 mg 10/24/17 10:00 10/27/17 09:34 Diflucan - PO 100 mg DAILY [facility] Administration Ampicillin Sodium 2 gm/ Sodium 100 mls @ 200 mls/hr 10/25/17 14:15 10/28/17 05:54 Chloride IVPB 200 mls/hr Q4H [facility] Administration Gentamicin Sulfate 50 mg/ 101.25 mls @ 100 mls/hr 10/25/17 14:15 10/28/17 01: 59 Sodium Chloride IVPB 100 mls/hr Q12H [facility] Administration Potassium Chloride/Sodium Chloride 20 meq in 1,000 mls @ 75 mls/hr 10/27/17 07 :57 10/28/17 09:17 Ns+20 Meq Kcl - IV 75 mls/hr ASDIR [facility] Administration Lactobacillus Acidophilus 1 tab 10/26/17 10:00 10/27/17 09:34 Bacid - PO 1 tab DAILY [facility] Administration Lidocaine/Aluminum/Magnesium/Simeth 5 ml 10/23/17 12:00 10/28/17 06:47 Magic Mouthwash *Sjr Formula* - MM Not Given Q6HPO [facility] Melatonin 5 mg 10/26/17 09:55 10/26/17 23:54 Melatonin PO 5 mg HS PRN Administration INSOMNIA Ondansetron HCl 4 mg 10/23/17 10:07 Zofran Odt - SL Q8H PRN NAUSEA AND/OR VOMITING Oxycodone HCl 5 mg 10/27/17 07:56 10/28/17 07:11 Roxicodone - PO 5 mg Q6H PRN Administration PAIN LEVEL 7 - 10 Ranitidine HCl 150 mg 10/26/17 13:15 10/27/17 09:34 Zantac - PO 150 mg DAILY [facility] Administration Microbiology 10/26/17 10:00 Blood - Brenda Cath Blood Culture - Preliminary Streptococcus Species 10/26/17 10:40 Blood - Brenda Cath Blood Culture - Preliminary NO GROWTH OBTAINED AFTER 24 HOURS, INCUBATION TO CONTINUE FOR 4 DAYS. 10/25/17 06:00 Urine For Antigen Detection Legionella Antigen - Final, negative 10/25/17 06:00 Urine For Antigen Detection Streptococcus pneumoniae Antigen (M - Final, negative 10/23/17 10:55 Blood - Brenda Cath Blood Culture - Final Enterococcus Faecalis 10/23/17 04:20 Blood - Peripheral Venous Blood Culture - Final Enterococcus Faecalis 10/23/17 04:20 Blood - Peripheral Venous Blood Culture - Final Enterococcus Faecalis 10/23/17 04:05 Urine - Urine Clean Catch Urine Culture - Final Escherichia Coli 10/23/17 07:15 Nasopharyngeal Swab Influenza Types A,B Antigen (KRISSY) - Final 10/23/17 07:15 Nasopharyngeal Swab - Final IMAGING chest CT 10/23/17: interval development of right middle & lower lobe, left lower lobe infilitrate, increased pulmonary artery pressure. chest xray 10/22/17: pregressive athelatic changes ekg 10/23/17: nsr with supraventicular changes abd/pelvis ct with iv/oral contrast: no drainable abscess or fluid collection in the pelvis, small laying right pleural effusion, trace left pleural effusion ASSESSMENT/PLAN: 1) ID Enterococcus Bacteremia - continue ampicillin and gentamycin (10/25 -) vancomyin (10/25-10/26) rocephin (-10/26) zithromax (10/23-10/24) - repeat blood cultures from port, notable for prelim +, discussed with Dr Oquendo , vascular surgeon for port removal, will evaluate patient today - echo 10/26/17, ? density in left atrium, grade I diastolic dysfunction, ef 60- 65%, pt evaluated by cardiology, Dr Goldman, defer for JUMANA for now continue IV ABX - Dr Garibay, ID consulted and following UTI - ecoli, sensitive to gentamycin oral candidasis -continue fluconazole and magic mouthwash 2) heme/onc Metastatic breast Cancer - Dr Gandhi,oncologist does not have privileges at [facility], case discussed today with Dr Main, made aware of patient's condition and agrees with plan - Heme/onc, Dr Sanchez, consulted and following Thrombocytopenia - plt 66, strict monitoring F/E/N - regular diet - replete potassium and magnesium PPX - OOB Dispo- requires continued inpatient treatment Problem List - Problems (1) Leukocytosis Code(s): D72.829 - ELEVATED WHITE BLOOD CELL COUNT, UNSPECIFIED Qualifiers: Leukocytosis type: bandemia Qualified Code(s): D72.825 - Bandemia (2) Urinary tract infection Code(s): N39.0 - URINARY TRACT INFECTION, SITE NOT SPECIFIED (3) Breast cancer metastasized to brain Code(s): C50.919 - MALIGNANT NEOPLASM OF UNSP SITE OF UNSPECIFIED FEMALE BREAST ; C79.31 - SECONDARY MALIGNANT NEOPLASM OF BRAIN (4) Von Willebrand disease Code(s): D68.0 - VON WILLEBRAND'S DISEASE (5) Thrush, oral Code(s): B37.0 - CANDIDAL STOMATITIS
--- NOTE | 2017-10-28 10:07 | PN ---
Physical Exam: SUBJECTIVE: Patient seen and examined, reports ongoing right hip pain, patient is pending port removal today OBJECTIVE: patient 72-year-old woman with history of breast cancer with metastasis to the brain status post chemotherapy and gamma knife, admitted with pneumonia and UTI, and bacteremia. Vital Signs Period Temp Pulse Resp BP Sys/Blum Pulse Ox Last 24 Hr 97.4 F-98.6 F 85-99 18-20 97-110/50-65 96-100 GENERAL: The patient is awake, alert, and fully oriented, lethargic. HEAD: Normal with no signs of trauma. EYES: PERRL, extraocular movements intact, sclera anicteric, pale conjunctiva, No ptosis. ENT: Ears normal, nares patent, oropharynx clear without exudates, moist mucous membranes. NECK: Trachea midline, full range of motion, supple. LUNGS: Breath sounds equal, clear to auscultation bilaterally, no wheezes, no crackles, no accessory muscle use. HEART: Regular rate and rhythm, S1, S2 without murmur, rub or gallop. ABDOMEN: Soft, nontender, nondistended, normoactive bowel sounds, no guarding, no rebound, no hepatosplenomegaly, no masses. EXTREMITIES: 2+ pulses, warm, well-perfused, no edema. RIGHT LOWER EXTREMITY: pain localized to the right anterior hip upon movement, no erythema, no induration noted. NEUROLOGICAL: Cranial nerves II through XII grossly intact. Normal speech, gait not observed. PSYCH: Normal mood, normal affect. SKIN: Warm, dry, normal turgor, no rashes or lesions noted, alleyn dressing to cocycox Laboratory Results - last 24 hr CBC WBC 7.3 K/mm3 (4.0-10.8) 10/28/17 08:20 RBC 2.41 M/mm3 (3.60-5.2) L 10/28/17 08:20 Hgb 8.0 GM/dl (10.7-15.3) L D 10/28/17 08:20 Hct 23.4 % (32.4-45.2) L 10/28/17 08:20 MCV 96.9 fl (80-96) H 10/28/17 08:20 MCH 33.3 pg (25.7-33.7) 10/28/17 08:20 MCHC 34.3 g/dl (32.0-36.0) 10/28/17 08:20 RDW 16.3 % (11.6-15.6) H 10/28/17 08:20 Plt Count 56 K/MM3 (134-434) L 10/28/17 08:20 MPV 9.1 fl (7.5-11.1) 10/28/17 08:20 Neutrophils % Mixing Technician 10/28/17 08:20 Neutrophils % (Manual) 75.0 % (42.8-82.8) 10/27/17 06:10 Band Neutrophils % 4.0 % (0-10) 10/27/17 06:10 Lymphocytes % Mixing Technician 10/28/17 08:20 Lymphocytes % (Manual) 6.0 % (8-40) L 10/27/17 06:10 Monocytes % Mixing Technician 10/28/17 08:20 Monocytes % (Manual) 9 % (3.8-10.2) 10/27/17 06:10 Eosinophils % Mixing Technician 10/28/17 08:20 Eosinophils % (Manual) 0.0 % (0-4.5) 10/23/17 02:40 Basophils % Mixing Technician 10/28/17 08:20 Basophils % (Manual) 9.0 % (0-2.0) H* 10/23/17 02:40 Myelocytes % (Man) 2 % (0-2) 10/27/17 06:10 Metamyelocytes 2 % (0-2) 10/27/17 06:10 Hypochromia 0 10/23/17 02:40 Toxic Granulation 0 10/23/17 02:40 Dohle Bodies 0 10/23/17 02:40 Platelet Estimate Decreased 10/27/17 06:10 Polychromasia 0 10/23/17 02:40 Poikilocytosis 0 10/23/17 02:40 Basophilic Stippling 0 10/23/17 02:40 Anisocytosis 0 10/23/17 02:40 Microcytosis 0 10/23/17 02:40 Macrocytosis 0 10/23/17 02:40 Spherocytes 0 10/23/17 02:40 Sickle Cells 0 10/23/17 02:40 Target Cells 0 10/23/17 02:40 Tear Drop Cells 0 10/23/17 02:40 Ovalocytes 0 10/23/17 02:40 Stomatocytes 0 10/23/17 02:40 Helmet Cells 0 10/23/17 02:40 [place] Bodies 0 10/23/17 02:40 [place] Rings 0 10/23/17 02:40 [place] Cells 0 10/23/17 02:40 Acanthocytes (Spur) 0 10/23/17 02:40 Fragmented RBCs 0 10/23/17 02:40 Schistocytes 0 10/23/17 02:40 CMP Sodium 137 mmol/L (136-145) 10/28/17 08:20 Potassium 4.2 mmol/L (3.5-5.1) 10/28/17 08:20 Chloride 102 mmol/L (98-107) 10/28/17 08:20 Carbon Dioxide 28 mmol/L (22-28) 10/28/17 08:20 Anion Gap 7 (8-16) L 10/28/17 08:20 BUN 13 mg/dl (7-18) 10/28/17 08:20 Creatinine 0.5 mg/dl (0.6-1.3) L D 10/28/17 08:20 Creat Clearance w eGFR > 60 (>60) 10/27/17 06:10 Random Glucose 104 mg/dl (74-106) 10/28/17 08:20 Lactic Acid 1.5 mmol/L (0.0-2.0) 10/23/17 22:00 Calcium 8.0 mg/dl (8.4-10.2) L 10/28/17 08:20 Phosphorus 3.6 mg/dl (2.5-4.6) 10/28/17 08:20 Magnesium 1.9 mg/dL (1.8-2.4) 10/28/17 08:20 Total Bilirubin 0.4 mg/dl (0.2-1.0) D 10/27/17 06:10 AST 16 U/L (10-42) 10/27/17 06:10 ALT 23 U/L (10-40) 10/27/17 06:10 Alkaline Phosphatase 95 U/L (32-92) H 10/27/17 06:10 Creatine Kinase 67 IU/L (26-192) 10/23/17 02:40 Troponin I < 0.02 ng/ml (0.00-0.05) 10/23/17 02:40 C-Reactive Protein 9.9 MG/DL (0.00-0.3) H 10/28/17 10:20 Total Protein 4.5 g/dl (6.4-8.3) L 10/27/17 06:10 Albumin 2.0 g/dl (3.5-5.0) L 10/27/17 06:10 Active Medications Generic Name Dose Route Start Last Admin Trade Name Freq PRN Reason Stop Dose Admin Acetaminophen 650 mg 10/23/17 10:10 10/27/17 14:23 Tylenol - PO 650 mg Q6H PRN Administration FEVER Albuterol Sulfate 1 amp 10/23/17 07:30 Ventolin 0.083% Nebulizer Soln - NEB Q4H PRN SHORT OF BREATH/WHEEZING Albuterol/Ipratropium 1 amp 10/23/17 12:00 10/28/17 08:40 Duoneb - NEB 1 amp RQID [facility]IE Administration Artificial Tears 1 drop 10/25/17 13:07 Artificial Tears OU BID PRN DRY EYES Fluconazole 100 mg 10/24/17 10:00 10/28/17 09:59 Diflucan - PO 100 mg DAILY [facility] Administration Ampicillin Sodium 2 gm/ Sodium 100 mls @ 200 mls/hr 10/25/17 14:15 10/28/17 09:59 Chloride IVPB 200 mls/hr Q4H [facility] Administration Gentamicin Sulfate 50 mg/ 101.25 mls @ 100 mls/hr 10/25/17 14:15 10/28/17 01: 59 Sodium Chloride IVPB 100 mls/hr Q12H [facility] Administration Potassium Chloride/Sodium Chloride 20 meq in 1,000 mls @ 75 mls/hr 10/27/17 07 :57 10/28/17 09:17 Ns+20 Meq Kcl - IV 75 mls/hr ASDIR [facility] Administration Lactobacillus Acidophilus 1 tab 10/26/17 10:00 10/28/17 09:59 Bacid - PO 1 tab DAILY [facility] Administration Lidocaine/Aluminum/Magnesium/Simeth 5 ml 10/23/17 12:00 10/28/17 06:47 Magic Mouthwash *Sjr Formula* - MM Not Given Q6HPO [facility] Melatonin 5 mg 10/26/17 09:55 10/26/17 23:54 Melatonin PO 5 mg HS PRN Administration INSOMNIA Ondansetron HCl 4 mg 10/23/17 10:07 Zofran Odt - SL Q8H PRN NAUSEA AND/OR VOMITING Oxycodone HCl 5 mg 10/27/17 07:56 10/28/17 07:11 Roxicodone - PO 5 mg Q6H PRN Administration PAIN LEVEL 7 - 10 Ranitidine HCl 150 mg 10/26/17 13:15 10/28/17 09:59 Zantac - PO 150 mg DAILY [facility]IE Administration Microbiology 10/26/17 10:00 Blood - Brenda Cath Blood Culture - Preliminary Streptococcus Species 10/26/17 10:40 Blood - Brenda Cath Blood Culture - Preliminary NO GROWTH OBTAINED AFTER 24 HOURS, INCUBATION TO CONTINUE FOR 4 DAYS. 10/25/17 06:00 Urine For Antigen Detection Legionella Antigen - Final 10/25/17 06:00 Urine For Antigen Detection Streptococcus pneumoniae Antigen (M - Final 10/23/17 10:55 Blood - Brenda Cath Blood Culture - Final Enterococcus Faecalis 10/23/17 04:20 Blood - Peripheral Venous Blood Culture - Final Enterococcus Faecalis 10/23/17 04:20 Blood - Peripheral Venous Blood Culture - Final Enterococcus Faecalis 10/23/17 04:05 Urine - Urine Clean Catch Urine Culture - Final Escherichia Coli 10/23/17 07:15 Nasopharyngeal Swab Influenza Types A,B Antigen (KRISSY) - Final 10/23/17 07:15 Nasopharyngeal Swab - Final IMAGING chest CT 10/23/17: interval development of right middle & lower lobe, left lower lobe infilitrate, increased pulmonary artery pressure. chest xray 10/22/17: pregressive athelatic changes ekg 10/23/17: nsr with supraventicular changes abd/pelvis ct with iv/oral contrast: no drainable abscess or fluid collection in the pelvis, small laying right pleural effusion, trace left pleural effusion ASSESSMENT/PLAN: 1) ID Enterococcus Bacteremia - continue ampicillin and gentamycin (10/25 -) vancomyin (10/25-10/26) rocephin (-10/26) zithromax (10/23-10/24), repeat cultures of port a cath, 1 culture prelim +, pending port removal today in OR with Dr Oquendo - echo 10/26/17, ? density in left atrium, grade I diastolic dysfunction, ef 60- 65%, pt evaluated by cardiology, Dr Goldman, defer for JUMANA for now continue IV ABX - ongoing right hip pain, concerning for septic arthritis pending esr and crp, ct scan of hip ordered - Dr Garibay, ID consulted and following UTI - ecoli, sensitive to gentamycin oral candidasis -continue fluconazole and magic mouthwash 2) heme/onc Metastatic breast Cancer - Dr Gandhi,oncologist does not have privileges at [facility], case discussed today with Dr Main 10/27/17, made aware of patient's condition and agrees with plan - Heme/onc, Dr Sanchez, consulted and following Thrombocytopenia - plt 56, strict monitoring F/E/N - regular diet - replete potassium and magnesium PPX - OOB - PT - SCD Dispo- requires continued inpatient treatment Problem List - Problems (1) Leukocytosis Code(s): D72.829 - ELEVATED WHITE BLOOD CELL COUNT, UNSPECIFIED Qualifiers: Leukocytosis type: bandemia Qualified Code(s): D72.825 - Bandemia (2) Urinary tract infection Code(s): N39.0 - URINARY TRACT INFECTION, SITE NOT SPECIFIED Qualifiers: Urinary tract infection type: site unspecified Hematuria presence: without hematuria Qualified Code(s): N39.0 - Urinary tract infection, site not specified (3) Breast cancer metastasized to brain Code(s): C50.919 - MALIGNANT NEOPLASM OF UNSP SITE OF UNSPECIFIED FEMALE BREAST ; C79.31 - SECONDARY MALIGNANT NEOPLASM OF BRAIN Qualifiers: Laterality: unspecified laterality Qualified Code(s): C50.919 - Malignant neoplasm of unspecified site of unspecified female breast; C79.31 - Secondary malignant neoplasm of brain; C79.31 - Secondary malignant neoplasm of brain; C79.31 - Secondary malignant neoplasm of brain; C79.31 - Secondary malignant neoplasm of brain (4) Von Willebrand disease Code(s): D68.0 - VON WILLEBRAND'S DISEASE (5) Thrush, oral Code(s): B37.0 - CANDIDAL STOMATITIS Visit type - Emergency Visit Emergency Visit: Yes ED Registration Date: 10/23/17 Care time: The patient presented to the Emergency Department on the above date and was hospitalized for further evaluation of their emergent condition. - New Patient This patient is new to me today: No - Critical Care Critical Care patient: No - Discharge Referral Referred to [facility] No
[2017-10-28] MEDS ORDERED: ACETAMINOPHEN 1000 MG/100 ML VIAL (NON FORMULARY) IVPB ONE (11:00)
[2017-10-28 12:23] LABS: HEMATOCRIT 23.4 % (32.4-45.2); MCH 33.3 pg (25.7-33.7); MCHC 34.3 g/dl (32.0-36.0); MEAN CELL VOLUME 96.9 fl (80-96); MEAN PLT VOLUME 9.1 fl (7.5-11.1); PLATELET COUNT 56 K/MM3 (134-434); RBC 2.41 M/mm3 (3.60-5.2); RDW 16.3 % (11.6-15.6); WHITE BLOOD COUNT 7.3 K/mm3 (4.0-10.8)
[2017-10-28] MEDS ORDERED: MIDAZOLAM HCL 2 MG/2 ML SINGLE DOSE VIAL ONE (12:41)
[2017-10-28] MEDS ORDERED: LIDOCAINE HCL 1%, 10 MG/ML (20ML VIAL) ONE (12:55)
[2017-10-28] MEDS ORDERED: LIDOCAINE HCL 1%, 10 MG/ML (20ML VIAL) INF ONE (13:06)
[2017-10-28] MEDS ORDERED: PROPOFOL 20 ML ONE (13:17)
--- NOTE | 2017-10-28 13:29 | OP ---
Operative Note - Note: Operative Date: 10/28/17 Pre-Operative Diagnosis: infected port Operation: Removal of port Findings: no brenda pus. Tip of port sent for cx and sensitivity. Post-Operative Diagnosis: Same as Pre-op Surgeon: Romero Oquendo Anesthesia: Fractional Estimated Blood Loss (mls): 10 Operative Report Dictated: Yes
--- NOTE | 2017-10-28 16:49 | PN ---
Progress Note, Physician History of Present Illness: Remains afebrile, underwent port removal, cath tip submitted for C&S. - Current Medication List Current Medications: Active Medications Acetaminophen (Tylenol -) 650 mg PO Q6H PRN PRN Reason: FEVER Last Admin: 10/27/17 14:23 Dose: 650 mg Albuterol Sulfate (Ventolin 0.083% Nebulizer Soln -) 1 amp NEB Q4H PRN PRN Reason: SHORT OF BREATH/WHEEZING Albuterol/Ipratropium (Duoneb -) 1 amp NEB RQID [facility] Last Admin: 10/28/17 12:30 Dose: Not Given Artificial Tears (Artificial Tears) 1 drop OU BID PRN PRN Reason: DRY EYES Fluconazole (Diflucan -) 100 mg PO DAILY [facility] Last Admin: 10/28/17 09:59 Dose: 100 mg Ampicillin Sodium 2 gm/ Sodium (Chloride) 100 mls @ 200 mls/hr IVPB Q4H [facility] Last Admin: 10/28/17 15:48 Dose: 200 mls/hr Gentamicin Sulfate 50 mg/ (Sodium Chloride) 101.25 mls @ 100 mls/hr IVPB Q12H [facility] Last Admin: 10/28/17 15:49 Dose: 100 mls/hr Potassium Chloride/Sodium Chloride (Ns+20 Meq Kcl -) 20 meq in 1,000 mls @ 75 mls/hr IV ASDIR [facility] Last Admin: 10/28/17 09:17 Dose: 75 mls/hr Lactobacillus Acidophilus (Bacid -) 1 tab PO DAILY [facility] Last Admin: 10/28/17 09:59 Dose: 1 tab Lidocaine/Aluminum/Magnesium/Simeth (Magic Mouthwash *Sjr Formula* -) 5 ml MM Q6HPO [facility] Last Admin: 10/28/17 12:22 Dose: Not Given Melatonin (Melatonin) 5 mg PO HS PRN PRN Reason: INSOMNIA Last Admin: 10/26/17 23:54 Dose: 5 mg Ondansetron HCl (Zofran Odt -) 4 mg SL Q8H PRN PRN Reason: NAUSEA AND/OR VOMITING Oxycodone HCl (Roxicodone -) 5 mg PO Q6H PRN PRN Reason: PAIN LEVEL 7 - 10 Last Admin: 10/28/17 07:11 Dose: 5 mg Ranitidine HCl (Zantac -) 150 mg PO DAILY [facility] Last Admin: 10/28/17 09:59 Dose: 150 mg - Objective Vital Signs: Vital Signs Temperature 98 F 10/28/17 14:15 Pulse Rate 91 H 10/28/17 14:15 Respiratory Rate 14 10/28/17 14:15 Blood Pressure 107/61 10/28/17 14:15 O2 Sat by Pulse Oximetry (%) 94 L 10/28/17 14:00 Constitutional: Yes: No Distress, Calm Neck: Yes: Supple Cardiovascular: Yes: Regular Rate and Rhythm Respiratory: Yes: Regular, Diminished, On Nasal O2 Gastrointestinal: Yes: Normal Bowel Sounds, Soft, Abdomen, Obese Edema: Yes Edema: LLE: Trace, RLE: Trace Labs: CBC, BMP 10/28/17 08:20 10/28/17 08:20 INR, PTT INR 1.24 (0.82-1.09) H 10/28/17 08:20 Problem List - Problems (1) Bacteremia Code(s): R78.81 - BACTEREMIA (2) 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 Code(s): C50.919 - MALIGNANT NEOPLASM OF UNSP SITE OF UNSPECIFIED FEMALE BREAST ; C78.00 - SECONDARY MALIGNANT NEOPLASM OF UNSPECIFIED LUNG Qualifiers: Laterality: right Qualified Code(s): C50.911 - Malignant neoplasm of unspecified site of right female breast; C78.00 - Secondary malignant neoplasm of unspecified lung; C78.00 - Secondary malignant neoplasm of unspecified lung; C78.00 - Secondary malignant neoplasm of unspecified lung; C78.00 - Secondary malignant neoplasm of unspecified lung (3) Pneumonia Code(s): J18.9 - PNEUMONIA, UNSPECIFIED ORGANISM (4) Urinary tract infection Code(s): N39.0 - URINARY TRACT INFECTION, SITE NOT SPECIFIED Qualifiers: Urinary tract infection type: site unspecified Hematuria presence: without hematuria Qualified Code(s): N39.0 - Urinary tract infection, site not specified (5) Breast cancer metastasized to brain Code(s): C50.919 - MALIGNANT NEOPLASM OF UNSP SITE OF UNSPECIFIED FEMALE BREAST ; C79.31 - SECONDARY MALIGNANT NEOPLASM OF BRAIN Qualifiers: Laterality: unspecified laterality Qualified Code(s): C50.919 - Malignant neoplasm of unspecified site of unspecified female breast; C79.31 - Secondary malignant neoplasm of brain; C79.31 - Secondary malignant neoplasm of brain; C79.31 - Secondary malignant neoplasm of brain; C79.31 - Secondary malignant neoplasm of brain Assessment/Plan 1. Suspicious mobile LA echodensity, etiology unclear 2. Enterococcal bacteremia/sepsis possible port infection 3. Multilobar PNA 4. Breast CA with metastasis to brain and lung post lumpectomy, gamma knife and radiation and chemotherapy PLAN: 1. Transthoracic echocardiography images reviewed personally. Ideally Transesophageal echocardiography would be helpful especially if bacteremia persists once clinically improved, ID input appreciated. Would continue antibiotic coverage per C&S 2. Oncology input to follow. Port has been removed. Surveillance cultures are to be followed 3. Plan of care relayed to family
--- NOTE | 2017-10-28 18:48 | OP ---
DATE OF OPERATION: 10/28/2017 PREOPERATIVE DIAGNOSIS: Infected port. POSTOPERATIVE DIAGNOSIS: Infected port. PROCEDURE: Removal of Port-A-Cath. FINDINGS: No brenda pus found in the pocket of the Port-A-Cath. Tip of Port-A-Cath sent off for culture and sensitivity. SURGEON: Romero Horta D.O. ANESTHESIA: Fractional. BLOOD LOSS: 10 mL. INDICATION: The patient is a 72-year-old female with metastatic breast cancer has a port that has positive blood cultures x2 with 2 different organisms growing, and it was decided that she would need the Port-A-Cath taken out. Patient's family was consented for the procedure understanding all risks, benefits, and alternatives and then taken to the operating room. DESCRIPTION OF PROCEDURE: Once in the operating room, patient was laid on the operating table in a supine manner, and the area of the right neck and chest prepped and draped in a sterile surgical manner. We then went ahead and injected 10 mL of lidocaine 1% over the port. We then took our 15 blade and made a 5-cm incision over the port. Bovie electrocautery used to control hemostasis in order to extend the incision using electrocautery. Patient had a double lumen port that was then removed, and once taken out, we sent the tip off for culture and sensitivity and pressure was held over the IJ and clavicle. Once there was no more bleeding, the wound was well irrigated. There was no brenda pus found. We then went ahead and used 3-0 Vicryl and the subcutaneous tissue was approximated in an interrupted manner, and the skin was closed with 4-0 Biosyn in subcuticular running fashion. Areas were dried. Steri-Strips were placed. 4x4s and Tegaderms were placed, and the patient tolerated the procedure without complications. Patient was transferred to PACU in stable condition. ROMERO HORTA DO [id number]
[2017-10-28] MEDS: MELATONIN 5 MG TABLETS PO PRN (23:28)
[2017-10-29] MEDS: MAG HYDROX/ALH/SMC/DPHA/LIDO 240 ML MOUTHWASH MM SCH ×4 (00:10→17:25)
[2017-10-29] MEDS: oxyCODONE HCL 5 MG TABLET PO PRN ×2 (00:46→11:58)
[2017-10-29] MEDS ORDERED: PT OWN MED DRAWER 7, Y5N ONE ×8 (01:12→22:48)
[2017-10-29] MEDS: GENTAMICIN IVPB SCH ×2 (01:17→14:17)
[2017-10-29] MEDS: SODIUM CHLORIDE IVPB SCH ×2 (01:17→14:17)
[2017-10-29] MEDS: AMPICILLIN - 2 GM in SODIUM CHLORIDE 100 ML IVPB SCH ×6 (01:53→22:15)
[2017-10-29] MEDS ORDERED: REFRIGERATED ANITBIOTICS ONE ×3 (05:40→22:46)
[2017-10-29] MEDS: SODIUM CHLORIDE 0.9%/KCL 20 MEQ/1,000 ML INFUS.BAG IV SCH (08:28)
[2017-10-29] MEDS: ALBUTEROL SO4 2.5/IPRATROPIUM 0.5 INH SOL 3 ML VIAL.NEB. NEB SCH ×3 (08:46→20:00)
--- NOTE | 2017-10-29 09:07 | PN ---
Progress Note, Physician History of Present Illness: Remains afebrile, feels weak, positive blood cultures drawn from port shows bacteremia persists despite appropriate abx coverage. - Current Medication List Current Medications: Active Medications Acetaminophen (Tylenol -) 650 mg PO Q6H PRN PRN Reason: FEVER Last Admin: 10/27/17 14:23 Dose: 650 mg Albuterol Sulfate (Ventolin 0.083% Nebulizer Soln -) 1 amp NEB Q4H PRN PRN Reason: SHORT OF BREATH/WHEEZING Albuterol/Ipratropium (Duoneb -) 1 amp NEB RQID [facility] Last Admin: 10/29/17 08:46 Dose: 1 amp Artificial Tears (Artificial Tears) 1 drop OU BID PRN PRN Reason: DRY EYES Fluconazole (Diflucan -) 100 mg PO DAILY [facility] Last Admin: 10/28/17 09:59 Dose: 100 mg Ampicillin Sodium 2 gm/ Sodium (Chloride) 100 mls @ 200 mls/hr IVPB Q4H [facility] Last Admin: 10/29/17 06:09 Dose: 200 mls/hr Gentamicin Sulfate 50 mg/ (Sodium Chloride) 101.25 mls @ 100 mls/hr IVPB Q12H [facility] Last Admin: 10/29/17 01:17 Dose: 100 mls/hr Potassium Chloride/Sodium Chloride (Ns+20 Meq Kcl -) 20 meq in 1,000 mls @ 75 mls/hr IV ASDIR [facility] Last Admin: 10/28/17 09:17 Dose: 75 mls/hr Lactobacillus Acidophilus (Bacid -) 1 tab PO DAILY [facility] Last Admin: 10/28/17 09:59 Dose: 1 tab Lidocaine/Aluminum/Magnesium/Simeth (Magic Mouthwash *Sjr Formula* -) 5 ml MM Q6HPO [facility] Last Admin: 10/29/17 06:08 Dose: 5 ml Melatonin (Melatonin) 5 mg PO HS PRN PRN Reason: INSOMNIA Last Admin: 10/28/17 23:28 Dose: 5 mg Ondansetron HCl (Zofran Odt -) 4 mg SL Q8H PRN PRN Reason: NAUSEA AND/OR VOMITING Oxycodone HCl (Roxicodone -) 5 mg PO Q6H PRN PRN Reason: PAIN LEVEL 7 - 10 Last Admin: 10/29/17 00:46 Dose: 5 mg Ranitidine HCl (Zantac -) 150 mg PO DAILY [facility] Last Admin: 10/28/17 09:59 Dose: 150 mg - Objective Vital Signs: Vital Signs Temperature 98.7 F 10/29/17 04:00 Pulse Rate 112 H 10/29/17 04:00 Respiratory Rate 18 10/29/17 04:00 Blood Pressure 126/61 10/29/17 04:00 O2 Sat by Pulse Oximetry (%) 98 10/28/17 22:55 Constitutional: Yes: No Distress, Calm Neck: Yes: Supple Cardiovascular: Yes: Regular Rate and Rhythm Respiratory: Yes: Regular, Diminished Gastrointestinal: Yes: Normal Bowel Sounds, Soft, Abdomen, Obese Edema: Yes Edema: LLE: Trace, RLE: Trace Labs: CBC, BMP 10/28/17 08:20 10/28/17 08:20 INR, PTT INR 1.24 (0.82-1.09) H 10/28/17 08:20 Problem List - Problems (1) Bacteremia Code(s): R78.81 - BACTEREMIA (2) 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 Code(s): C50.919 - MALIGNANT NEOPLASM OF UNSP SITE OF UNSPECIFIED FEMALE BREAST ; C78.00 - SECONDARY MALIGNANT NEOPLASM OF UNSPECIFIED LUNG Qualifiers: Laterality: right Qualified Code(s): C50.911 - Malignant neoplasm of unspecified site of right female breast; C78.00 - Secondary malignant neoplasm of unspecified lung; C78.00 - Secondary malignant neoplasm of unspecified lung; C78.00 - Secondary malignant neoplasm of unspecified lung; C78.00 - Secondary malignant neoplasm of unspecified lung (3) Pneumonia Code(s): J18.9 - PNEUMONIA, UNSPECIFIED ORGANISM (4) Urinary tract infection Code(s): N39.0 - URINARY TRACT INFECTION, SITE NOT SPECIFIED Qualifiers: Urinary tract infection type: site unspecified Hematuria presence: without hematuria Qualified Code(s): N39.0 - Urinary tract infection, site not specified (5) Breast cancer metastasized to brain Code(s): C50.919 - MALIGNANT NEOPLASM OF UNSP SITE OF UNSPECIFIED FEMALE BREAST ; C79.31 - SECONDARY MALIGNANT NEOPLASM OF BRAIN Qualifiers: Laterality: unspecified laterality Qualified Code(s): C50.919 - Malignant neoplasm of unspecified site of unspecified female breast; C79.31 - Secondary malignant neoplasm of brain; C79.31 - Secondary malignant neoplasm of brain; C79.31 - Secondary malignant neoplasm of brain; C79.31 - Secondary malignant neoplasm of brain Assessment/Plan 1. Suspicious mobile [place] echodensity, etiology unclear 2. Enterococcal bacteremia/sepsis suspect port infection 3. Multilobar PNA 4. Breast CA with metastasis to brain and lung post lumpectomy, gamma knife and radiation and chemotherapy PLAN: 1. Transthoracic echocardiography images reviewed personally. Ideally Transesophageal echocardiography would be helpful especially if bacteremia persists once clinically improved, ID input appreciated. Amp/Gent coverage per C &S 2. Oncology input to follow. Port has been removed and cath tip culture pending. Repeat surveillance cultures, 3. Plan of care relayed to family
[2017-10-29] MEDS: RANITIDINE HCL 150 MG TABLET (FP) PO SCH (09:28)
[2017-10-29] MEDS: FLUCONAZOLE 100 MG TABLET (UD) PO SCH (09:28)
[2017-10-29] MEDS: LACTOBACILLUS ACIDOPHILUS 1 EACH TAB (FP) PO SCH (09:33)
--- NOTE | 2017-10-29 10:47 | PN ---
Physical Exam: SUBJECTIVE: Patient seen and examined, reports some improvement in right hip pain. OBJECTIVE:patient 72-year-old woman with history of breast cancer with metastasis to the brain status post chemotherapy and gamma knife, admitted with pneumonia and UTI, and bacteremia. Vital Signs Period Temp Pulse Resp BP Sys/Blum Pulse Ox Last 24 Hr 97.5 F-98.7 F 86-112 12-20 102-126/55-67 94-98 GENERAL: The patient is awake, alert, and fully oriented, lethargic. HEAD: Normal with no signs of trauma. EYES: PERRL, extraocular movements intact, sclera anicteric, pale conjunctiva, No ptosis. ENT: Ears normal, nares patent, oropharynx clear without exudates, moist mucous membranes. NECK: Trachea midline, full range of motion, supple. LUNGS: Breath sounds equal, clear to auscultation bilaterally, no wheezes, no crackles, no accessory muscle use. HEART: Regular rate and rhythm, S1, S2 without murmur, rub or gallop. ABDOMEN: Soft, nontender, nondistended, normoactive bowel sounds, no guarding, no rebound, no hepatosplenomegaly, no masses. EXTREMITIES: 2+ pulses, warm, well-perfused, no edema. RIGHT LOWER EXTREMITY: pain localized to the right anterior hip upon palpation, that worsens upon abduction of the right lower extremity, no erythema, no induration noted. NEUROLOGICAL: Cranial nerves II through XII grossly intact. Normal speech, gait not observed. PSYCH: Normal mood, normal affect. SKIN: Warm, dry, normal turgor, no rashes or lesions noted, alleyn dressing to cocycox Laboratory Results - last 24 hr CBC WBC 7.3 K/mm3 (4.0-10.8) 10/28/17 08:20 RBC 2.41 M/mm3 (3.60-5.2) L 10/28/17 08:20 Hgb 8.0 GM/dl (10.7-15.3) L D 10/28/17 08:20 Hct 23.4 % (32.4-45.2) L 10/28/17 08:20 MCV 96.9 fl (80-96) H 10/28/17 08:20 MCH 33.3 pg (25.7-33.7) 10/28/17 08:20 MCHC 34.3 g/dl (32.0-36.0) 10/28/17 08:20 RDW 16.3 % (11.6-15.6) H 10/28/17 08:20 Plt Count 56 K/MM3 (134-434) L 10/28/17 08:20 MPV 9.1 fl (7.5-11.1) 10/28/17 08:20 Neutrophils % [employer]otions Team Leader 10/28/17 08:20 Neutrophils % (Manual) No Result Required. 10/28/17 08:20 Band Neutrophils % 4.0 % (0-10) 10/27/17 06:10 Lymphocytes % Promotions Team Leader 10/28/17 08:20 Lymphocytes % (Manual) 6.0 % (8-40) L 10/27/17 06:10 Monocytes % Promotions Team Leader 10/28/17 08:20 Monocytes % (Manual) 9 % (3.8-10.2) 10/27/17 06:10 Eosinophils % Promotions Team Leader 10/28/17 08:20 Eosinophils % (Manual) 0.0 % (0-4.5) 10/23/17 02:40 Basophils % Promotions Team Leader 10/28/17 08:20 Basophils % (Manual) 9.0 % (0-2.0) H* 10/23/17 02:40 Myelocytes % (Man) 2 % (0-2) 10/27/17 06:10 Metamyelocytes 2 % (0-2) 10/27/17 06:10 Hypochromia 0 10/23/17 02:40 Toxic Granulation 0 10/23/17 02:40 Dohle Bodies 0 10/23/17 02:40 Platelet Estimate Decreased 10/27/17 06:10 Polychromasia 0 10/23/17 02:40 Poikilocytosis 0 10/23/17 02:40 Basophilic Stippling 0 10/23/17 02:40 Anisocytosis 0 10/23/17 02:40 Microcytosis 0 10/23/17 02:40 Macrocytosis 0 10/23/17 02:40 Spherocytes 0 10/23/17 02:40 Sickle Cells 0 10/23/17 02:40 Target Cells 0 10/23/17 02:40 Tear Drop Cells 0 10/23/17 02:40 Ovalocytes 0 10/23/17 02:40 Stomatocytes 0 10/23/17 02:40 Helmet Cells 0 10/23/17 02:40 [place] Bodies 0 10/23/17 02:40 [place] Rings 0 10/23/17 02:40 [place] Cells 0 10/23/17 02:40 Acanthocytes (Spur) 0 10/23/17 02:40 Fragmented RBCs 0 10/23/17 02:40 Schistocytes 0 10/23/17 02:40 ESR 90 mm/hr (0-30) H 10/28/17 10:20 Active Medications Generic Name Dose Route Start Last Admin Trade Name Freq PRN Reason Stop Dose Admin Acetaminophen 650 mg 10/23/17 10:10 10/27/17 14:23 Tylenol - PO 650 mg Q6H PRN Administration FEVER Albuterol Sulfate 1 amp 10/23/17 07:30 Ventolin 0.083% Nebulizer Soln - NEB Q4H PRN SHORT OF BREATH/WHEEZING Albuterol/Ipratropium 1 amp 10/23/17 12:00 10/29/17 08:46 Duoneb - NEB 1 amp RQID [facility] Administration Artificial Tears 1 drop 10/25/17 13:07 Artificial Tears OU BID PRN DRY EYES Fluconazole 100 mg 10/24/17 10:00 10/29/17 09:28 Diflucan - PO 100 mg DAILY [facility] Administration Ampicillin Sodium 2 gm/ Sodium 100 mls @ 200 mls/hr 10/25/17 14:15 10/29/17 09:33 Chloride IVPB 200 mls/hr Q4H [facility] Administration Gentamicin Sulfate 50 mg/ 101.25 mls @ 100 mls/hr 10/25/17 14:15 10/29/17 01: 17 Sodium Chloride IVPB 100 mls/hr Q12H [facility] Administration Lactobacillus Acidophilus 1 tab 10/26/17 10:00 10/29/17 09:33 Bacid - PO 1 tab DAILY [facility] Administration Lidocaine/Aluminum/Magnesium/Simeth 5 ml 10/23/17 12:00 10/29/17 06:08 Magic Mouthwash *Sjr Formula* - MM 5 ml Q6HPO [facility] Administration Melatonin 5 mg 10/26/17 09:55 10/28/17 23:28 Melatonin PO 5 mg HS PRN Administration INSOMNIA Ondansetron HCl 4 mg 10/23/17 10:07 Zofran Odt - SL Q8H PRN NAUSEA AND/OR VOMITING Oxycodone HCl 5 mg 10/27/17 07:56 10/29/17 00:46 Roxicodone - PO 5 mg Q6H PRN Administration PAIN LEVEL 7 - 10 Ranitidine HCl 150 mg 10/26/17 13:15 10/29/17 09:28 Zantac - PO 150 mg DAILY [facility] Administration Microbiology 10/26/17 10:40 Blood - Brenda Cath Blood Culture - Preliminary NO GROWTH OBTAINED AFTER 72 HOURS, INCUBATION TO CONTINUE FOR 2 DAYS. 10/28/17 09:50 Blood - Brenda Cath Blood Culture - Preliminary Pending Organism 10/28/17 09:50 Blood - Brenda Cath Blood Culture - Preliminary NO GROWTH OBTAINED AFTER 24 HOURS, INCUBATION TO CONTINUE FOR 4 DAYS. 10/26/17 10:00 Blood - Brenda Cath Blood Culture - Final Enterococcus Faecalis 10/25/17 06:00 Urine For Antigen Detection Legionella Antigen - Final, negative 10/25/17 06:00 Urine For Antigen Detection Streptococcus pneumoniae Antigen (M - Final, negative 10/23/17 10:55 Blood - Brenda Cath Blood Culture - Final Enterococcus Faecalis 10/23/17 04:20 Blood - Peripheral Venous Blood Culture - Final Enterococcus Faecalis 10/23/17 04:20 Blood - Peripheral Venous Blood Culture - Final Enterococcus Faecalis 10/23/17 04:05 Urine - Urine Clean Catch Urine Culture - Final Escherichia Coli 10/23/17 07:15 Nasopharyngeal Swab Influenza Types A,B Antigen (KRISSY) - Final 10/23/17 07:15 Nasopharyngeal Swab - Final ASSESSMENT/PLAN: IMAGING chest CT 10/23/17: interval development of right middle & lower lobe, left lower lobe infilitrate, increased pulmonary artery pressure. chest xray 10/22/17: pregressive athelatic changes ekg 10/23/17: nsr with supraventicular changes abd/pelvis ct with iv/oral contrast: no drainable abscess or fluid collection in the pelvis, small laying right pleural effusion, trace left pleural effusion ASSESSMENT/PLAN: 1) ID Enterococcus Bacteremia - continue ampicillin and gentamycin (10/25 -) vancomyin (10/25-10/26) rocephin (-10/26) zithromax (10/23-10/24), repeat cultures of port a cath, 1 culture prelim +, pending port removal today in OR with Dr Oquendo - echo 10/26/17, ? density in left atrium, grade I diastolic dysfunction, ef 60- 65%, pt evaluated by cardiology, defer for JUMANA for now continue IV ABX and follow cultures. - Dr Garibay, ID consulted and following UTI - ecoli, sensitive to gentamycin oral candidasis -continue fluconazole and magic mouthwash 2) heme/onc Metastatic breast Cancer - Dr Gandhi,oncologist does not have privileges at [facility], case discussed today with Dr Main today, 10/29/17, made aware of patient's condition and agrees with plan - Heme/onc, Dr Sanchez, consulted and following Thrombocytopenia - plt 56, strict monitoring 3) MS right hip pain - concerning for septic arthritis, elevated esr and crp, ct of pelvis: bilateral joint effusion, right larger greater than left - appreciate ortho input F/E/N - regular diet PPX - OOB - PT - SCD plan discussed with Sarina Cedillo, daughter, , aggress with plan, all questions answered and verbalizes understanding Dispo- requires continued inpatient treatment Problem List - Problems (1) Leukocytosis Code(s): D72.829 - ELEVATED WHITE BLOOD CELL COUNT, UNSPECIFIED Qualifiers: Leukocytosis type: bandemia Qualified Code(s): D72.825 - Bandemia (2) Urinary tract infection Code(s): N39.0 - URINARY TRACT INFECTION, SITE NOT SPECIFIED Qualifiers: Urinary tract infection type: site unspecified Hematuria presence: without hematuria Qualified Code(s): N39.0 - Urinary tract infection, site not specified (3) Breast cancer metastasized to brain Code(s): C50.919 - MALIGNANT NEOPLASM OF UNSP SITE OF UNSPECIFIED FEMALE BREAST ; C79.31 - SECONDARY MALIGNANT NEOPLASM OF BRAIN Qualifiers: Laterality: unspecified laterality Qualified Code(s): C50.919 - Malignant neoplasm of unspecified site of unspecified female breast; C79.31 - Secondary malignant neoplasm of brain; C79.31 - Secondary malignant neoplasm of brain; C79.31 - Secondary malignant neoplasm of brain; C79.31 - Secondary malignant neoplasm of brain (4) Von Willebrand disease Code(s): D68.0 - VON WILLEBRAND'S DISEASE (5) Thrush, oral Code(s): B37.0 - CANDIDAL STOMATITIS Visit type - Emergency Visit Emergency Visit: Yes ED Registration Date: 10/23/17 Care time: The patient presented to the Emergency Department on the above date and was hospitalized for further evaluation of their emergent condition. - New Patient This patient is new to me today: No - Critical Care Critical Care patient: No - Discharge Referral Referred to [facility] Med P.C.: No
[2017-10-29] MEDS: ACETAMINOPHEN 325 MG TABLET (FP) PO PRN (11:58)
[2017-10-29] MEDS ORDERED: PICC LINE 8 ML FLUSH PROTOCOL IVPUSH PRN (12:06)
[2017-10-29 16:53] LABS: HEMATOCRIT 23.1 % (32.4-45.2); HEMOGLOBIN 7.8 GM/dl (10.7-15.3); MCH 32.5 pg (25.7-33.7); MCHC 33.7 g/dl (32.0-36.0); MEAN CELL VOLUME 96.3 fl (80-96); MEAN PLT VOLUME 8.9 fl (7.5-11.1); PLATELET COUNT 71 K/MM3 (134-434); RDW 16.9 % (11.6-15.6); WHITE BLOOD COUNT 7.5 K/mm3 (4.0-10.8)
[2017-10-29 16:55] LABS: ANION GAP 6 (8-16); BLOOD UREA NITROGEN 11 mg/dl (7-18); CALCIUM 8.2 mg/dl (8.4-10.2); CHLORIDE 103 mmol/L (98-107); CO2 27 mmol/L (22-28); CREATININE 0.6 mg/dl (0.6-1.3); GLUCOSE,RANDOM 140 mg/dl (74-106); MAGNESIUM 1.6 mg/dL (1.8-2.4); PHOSPHOROUS 3.8 mg/dl (2.5-4.6); SODIUM 136 mmol/L (136-145)
[2017-10-29] MEDS: morphine CARPU-JECT 2 MG/1 ML DISP.SYRIN IVPB PRN (17:24)
[2017-10-29 18:05] LABS: ANISOCYTOSIS 1+; PLATELET ESTIMATE DECREASED
[2017-10-30] MEDS: AMPICILLIN - 2 GM in SODIUM CHLORIDE 100 ML IVPB SCH ×6 (01:27→22:10)
[2017-10-30] MEDS: GENTAMICIN IVPB SCH ×2 (01:28→17:53)
[2017-10-30] MEDS: SODIUM CHLORIDE IVPB SCH ×2 (01:28→17:53)
[2017-10-30] MEDS ORDERED: PT OWN MED DRAWER 7, Y5N ONE ×2 (02:22→05:42)
[2017-10-30] MEDS: morphine CARPU-JECT 2 MG/1 ML DISP.SYRIN IVPB PRN (05:30)
[2017-10-30] MEDS: MAG HYDROX/ALH/SMC/DPHA/LIDO 240 ML MOUTHWASH MM SCH ×4 (06:44→20:57)
[2017-10-30] MEDS ORDERED: REFRIGERATED ANITBIOTICS ONE (06:59)
[2017-10-30] MEDS ORDERED: MAGNESIUM SULFATE 2 GM in SODIUM CHLORIDE 100 ML IVPB ONE (08:15)
--- NOTE | 2017-10-30 08:48 | PN ---
Progress Note, Physician History of Present Illness: Awake, alert No c/o pain at rest Port removed Afebrile WBC 7.5 plt 71 Repeat BC freom 10/[address] A/P no identifiable infectious focus - Current Medication List Current Medications: Active Medications Acetaminophen (Tylenol -) 650 mg PO Q6H PRN PRN Reason: FEVER Last Admin: 10/29/17 11:58 Dose: 650 mg Albuterol Sulfate (Ventolin 0.083% Nebulizer Soln -) 1 amp NEB Q4H PRN PRN Reason: SHORT OF BREATH/WHEEZING Albuterol/Ipratropium (Duoneb -) 1 amp NEB RQID [facility] Last Admin: 10/29/17 20:00 Dose: 1 amp Artificial Tears (Artificial Tears) 1 drop OU BID PRN PRN Reason: DRY EYES Fluconazole (Diflucan -) 100 mg PO DAILY [facility] Last Admin: 10/29/17 09:28 Dose: 100 mg IV Flush (Picc Line Flush) 8 ml IVPUSH PRN PRN PRN Reason: Protocol Ampicillin Sodium 2 gm/ Sodium (Chloride) 100 mls @ 200 mls/hr IVPB Q4H [facility] Last Admin: 10/30/17 01:27 Dose: 200 mls/hr Gentamicin Sulfate 50 mg/ (Sodium Chloride) 101.25 mls @ 100 mls/hr IVPB Q12H [facility] Last Admin: 10/30/17 01:28 Dose: 100 mls/hr Magnesium Sulfate 2 gm/ Sodium (Chloride) 104 mls @ 100 mls/hr IVPB ONCE ONE Stop: 10/30/17 09:17 Lactobacillus Acidophilus (Bacid -) 1 tab PO DAILY [facility] Last Admin: 10/29/17 09:33 Dose: 1 tab Lidocaine/Aluminum/Magnesium/Simeth (Magic Mouthwash *Sjr Formula* -) 5 ml MM Q6HPO [facility] Last Admin: 10/30/17 06:44 Dose: 5 ml Melatonin (Melatonin) 5 mg PO HS PRN PRN Reason: INSOMNIA Last Admin: 10/28/17 23:28 Dose: 5 mg Morphine Sulfate (Morphine Injection -) 2 mg IVPB Q6H PRN PRN Reason: PAIN LEVEL 7 - 10 Last Admin: 10/30/17 05:30 Dose: 2 mg Ondansetron HCl (Zofran Odt -) 4 mg SL Q8H PRN PRN Reason: NAUSEA AND/OR VOMITING Oxycodone HCl (Roxicodone -) 5 mg PO Q6H PRN PRN Reason: PAIN LEVEL 7 - 10 Last Admin: 10/29/17 11:58 Dose: 5 mg Ranitidine HCl (Zantac -) 150 mg PO DAILY [facility] Last Admin: 10/29/17 09:28 Dose: 150 mg - Objective Vital Signs: Vital Signs Temperature 98.3 F 10/30/17 06:00 Pulse Rate 108 H 10/30/17 06:00 Respiratory Rate 10/30/17 06:00 Blood Pressure 130/68 10/30/17 06:00 O2 Sat by Pulse Oximetry (%) 93 L 10/30/17 06:00 Constitutional: Yes: No Distress Eyes: Yes: Conjunctiva Clear Cardiovascular: Yes: Regular Rate and Rhythm, S1, S2 Respiratory: Yes: Diminished Gastrointestinal: Yes: Normal Bowel Sounds, Soft, Abdomen, Obese. No: Tenderness Edema: Yes Labs: CBC, BMP 10/29/17 16:25 10/29/17 16:25 INR, PTT INR 1.24 (0.82-1.09) H 10/28/17 08:20 Assessment/Plan Enterococcal bacteremia/sepsis S/P removal of port Multilobar pneumonia Metastatic carcinoma Continue ampicillin/ gentamicin Repeat gentamicin trough. Repeat BC PICC for senior care antibiotic therapy Cleared for PICC placment from ID standpoint
[2017-10-30] MEDS: ALBUTEROL SO4 2.5/IPRATROPIUM 0.5 INH SOL 3 ML VIAL.NEB. NEB SCH ×4 (08:55→20:45)
[2017-10-30] MEDS ORDERED: MAGNESIUM SULF 50% (8.12 MEQ/2 ML-1 GM VIAL) IVPB ONE (09:15)
--- NOTE | 2017-10-30 11:57 | PN ---
Physical Exam: SUBJECTIVE: Patient seen and examined, sitting up in bed, eating breakfast, reports pain to right hip is much improved, pending transfer to [facility] for tunnel cath placement. OBJECTIVE:patient 72-year-old woman with history of breast cancer with metastasis to the brain status post chemotherapy and gamma knife, admitted with pneumonia and UTI, and bacteremia. Vital Signs Period Temp Pulse Resp BP Sys/Blum Pulse Ox Last 24 Hr 97.9 F-98.4 F 108-112 20-20 108-130/67-75 93-97 GENERAL: The patient is awake, alert, and fully oriented, calm. HEAD: Normal with no signs of trauma. EYES: PERRL, extraocular movements intact, sclera anicteric, pale conjunctiva, No ptosis. ENT: Ears normal, nares patent, oropharynx clear without exudates, moist mucous membranes. NECK: Trachea midline, full range of motion, supple. LUNGS: Breath sounds equal, clear to auscultation bilaterally, no wheezes, no crackles, no accessory muscle use. HEART: Regular rate and rhythm, S1, S2 without murmur, rub or gallop. ABDOMEN: Soft, nontender, nondistended, normoactive bowel sounds, no guarding, no rebound, no hepatosplenomegaly, no masses. EXTREMITIES: 2+ pulses, warm, well-perfused, no edema. RIGHT LOWER EXTREMITY: pain localized to the right anterior hip upon abduction of the right lower extremity, no erythema, no induration noted. NEUROLOGICAL: Cranial nerves II through XII grossly intact. Normal speech, gait not observed. PSYCH: Normal mood, normal affect. SKIN: Warm, dry, normal turgor, no rashes or lesions noted, alleyn dressing to cocycox Laboratory Results - last 24 hr 10/29/17 10/29/17 16:25 16:25 WBC 7.5 RBC 2.40 L Hgb 7.8 L Hct 23.1 L MCV 96.3 H MCH 32.5 MCHC 33.7 RDW 16.9 H Plt Count 71 L MPV 8.9 Neutrophils % No Result Required. Neutrophils % (Manual) 72.0 Band Neutrophils % 6.0 Lymphocytes % No Result Required. Lymphocytes % (Manual) 8.0 Monocytes % (Manual) 6 Myelocytes % (Man) 4 H Nucleated RBC % 2 H Metamyelocytes 4 H Platelet Estimate Decreased Anisocytosis 1+ Sodium 136 Potassium 4.0 Chloride 103 Carbon Dioxide 27 Anion Gap 6 L BUN 11 Creatinine 0.6 Random Glucose 140 H D Calcium 8.2 L Phosphorus 3.8 Magnesium 1.6 L Active Medications Generic Name Dose Route Start Last Admin Trade Name Freq PRN Reason Stop Dose Admin Acetaminophen 650 mg 10/23/17 10:10 10/29/17 11:58 Tylenol - PO 650 mg Q6H PRN Administration FEVER Albuterol Sulfate 1 amp 10/23/17 07:30 Ventolin 0.083% Nebulizer Soln - NEB Q4H PRN SHORT OF BREATH/WHEEZING Albuterol/Ipratropium 1 amp 10/23/17 12:00 10/30/17 08:55 Duoneb - NEB Not Given RQID LILLIE Artificial Tears 1 drop 10/25/17 13:07 Artificial Tears OU BID PRN DRY EYES Fluconazole 100 mg 10/24/17 10:00 10/29/17 09:28 Diflucan - PO 100 mg DAILY LILLIE Administration IV Flush 8 ml 10/29/17 12:06 Picc Line Flush IVPUSH PRN PRN Protocol Ampicillin Sodium 2 gm/ Sodium 100 mls @ 200 mls/hr 10/25/17 14:15 10/30/17 09:53 Chloride IVPB Not Given Q4H LILLIE Gentamicin Sulfate 50 mg/ 101.25 mls @ 100 mls/hr 10/25/17 14:15 10/30/17 01: 28 Sodium Chloride IVPB 100 mls/hr Q12H LILLIE Administration Lactobacillus Acidophilus 1 tab 10/26/17 10:00 10/29/17 09:33 Bacid - PO 1 tab DAILY LILLIE Administration Lidocaine/Aluminum/Magnesium/Simeth 5 ml 10/23/17 12:00 10/30/17 06:44 Magic Mouthwash *Sjr Formula* - MM 5 ml Q6HPO LILLIE Administration Melatonin 5 mg 10/26/17 09:55 10/28/17 23:28 Melatonin PO 5 mg HS PRN Administration INSOMNIA Morphine Sulfate 2 mg 10/29/17 13:09 10/30/17 05:30 Morphine Injection - IVPB 2 mg Q6H PRN Administration PAIN LEVEL 7 - 10 Ondansetron HCl 4 mg 10/23/17 10:07 Zofran Odt - SL Q8H PRN NAUSEA AND/OR VOMITING Oxycodone HCl 5 mg 10/27/17 07:56 10/29/17 11:58 Roxicodone - PO 5 mg Q6H PRN Administration PAIN LEVEL 7 - 10 Ranitidine HCl 150 mg 10/26/17 13:15 10/29/17 09:28 Zantac - PO 150 mg DAILY LILLIE Administration Microbiology 10/26/17 10:40 Blood - Brenda Cath Blood Culture - Preliminary NO GROWTH OBTAINED AFTER 96 HOURS, INCUBATION TO CONTINUE FOR 1 DAYS. 10/28/17 09:50 Blood - Brenda Cath Blood Culture - Preliminary NO GROWTH OBTAINED AFTER 48 HOURS, INCUBATION TO CONTINUE FOR 3 DAYS. 10/28/17 09:50 Blood - Brenda Cath Blood Culture - Preliminary Pending Organism, no organism seen on repeat 10/26/17 10:00 Blood - Brenda Cath Blood Culture - Final Enterococcus Faecalis 10/25/17 06:00 Urine For Antigen Detection Legionella Antigen - Final 10/25/17 06:00 Urine For Antigen Detection Streptococcus pneumoniae Antigen (M - Final 10/23/17 10:55 Blood - Brenda Cath Blood Culture - Final Enterococcus Faecalis 10/23/17 04:20 Blood - Peripheral Venous Blood Culture - Final Enterococcus Faecalis 10/23/17 04:20 Blood - Peripheral Venous Blood Culture - Final Enterococcus Faecalis 10/23/17 04:05 Urine - Urine Clean Catch Urine Culture - Final Escherichia Coli 10/23/17 07:15 Nasopharyngeal Swab Influenza Types A,B Antigen (KRISSY) - Final 10/23/17 07:15 Nasopharyngeal Swab - Final IMAGING chest CT 10/23/17: interval development of right middle & lower lobe, left lower lobe infilitrate, increased pulmonary artery pressure. chest xray 10/22/17: pregressive athelatic changes ekg 10/23/17: nsr with supraventicular changes abd/pelvis ct with iv/oral contrast: no drainable abscess or fluid collection in the pelvis, small laying right pleural effusion, trace left pleural effusion ASSESSMENT/PLAN: 1) ID Enterococcus Bacteremia - no leukocytosis, patient is afebrile - continue ampicillin and gentamycin (10/25 -), vancomyin (10/25-10/26) rocephin (10/23-10/26) zithromax (10/23-10/24) - port a cath removed on 10/28/17 (Dr Oquendo), pending culture, transfer today to [facility] for tunnel cath placement - echo 10/26/17, ? density in left atrium, grade I diastolic dysfunction, ef 60- 65%, pt evaluated by cardiology, defer for JUMANA for now continue IV ABX and follow cultures. - Dr Garibay, ID consulted and following UTI - ecoli, sensitive to gentamycin oral candidasis -continue fluconazole and magic mouthwash 2) heme/onc Metastatic breast Cancer - Dr Gandhi,oncologist does not have privileges at [facility], case discussed today with Dr Main, 10/29/17, made aware of patient's condition and agrees with plan - Heme/onc, Dr Sanchez, consulted and following Thrombocytopenia - as per daughter, patient was evaluated for von willerbrand's disease, test were inconclusive - plt 71, strict monitoring 3) MS right hip pain - concerning for septic arthritis, elevated esr and crp, ct of pelvis: bilateral joint effusion, right larger greater than left - appreciate ortho input F/E/N - regular diet PPX - OOB - PT - SCD plan discussed with Sarina Cedillo, daughter, , agrees with plan and is requesting that her mother stay at [facility], all questions answered and verbalizes understanding Dispo- requires continued inpatient treatment Problem List - Problems (1) Leukocytosis Code(s): D72.829 - ELEVATED WHITE BLOOD CELL COUNT, UNSPECIFIED Qualifiers: Leukocytosis type: bandemia Qualified Code(s): D72.825 - Bandemia (2) Urinary tract infection Code(s): N39.0 - URINARY TRACT INFECTION, SITE NOT SPECIFIED Qualifiers: Urinary tract infection type: site unspecified Hematuria presence: without hematuria Qualified Code(s): N39.0 - Urinary tract infection, site not specified (3) Breast cancer metastasized to brain Code(s): C50.919 - MALIGNANT NEOPLASM OF UNSP SITE OF UNSPECIFIED FEMALE BREAST ; C79.31 - SECONDARY MALIGNANT NEOPLASM OF BRAIN Qualifiers: Laterality: unspecified laterality Qualified Code(s): C50.919 - Malignant neoplasm of unspecified site of unspecified female breast; C79.31 - Secondary malignant neoplasm of brain; C79.31 - Secondary malignant neoplasm of brain; C79.31 - Secondary malignant neoplasm of brain; C79.31 - Secondary malignant neoplasm of brain (4) Von Willebrand disease Code(s): D68.0 - VON WILLEBRAND'S DISEASE (5) Thrush, oral Code(s): B37.0 - CANDIDAL STOMATITIS Visit type - Emergency Visit Emergency Visit: Yes ED Registration Date: 10/23/17 Care time: The patient presented to the Emergency Department on the above date and was hospitalized for further evaluation of their emergent condition. - New Patient This patient is new to me today: No - Critical Care Critical Care patient: No - Discharge Referral Referred to [facility] Med P.C.: No
[2017-10-30] MEDS ORDERED: morphine CARPU-JECT 8 MG/1 ML DISP.SYRIN IVPB PRN (13:25)
[2017-10-30] MEDS: oxyCODONE HCL 5 MG TABLET PO PRN ×2 (13:32→20:57)
[2017-10-30] MEDS: LACTOBACILLUS ACIDOPHILUS 1 EACH TAB (FP) PO SCH (13:33)
[2017-10-30] MEDS: FLUCONAZOLE 100 MG TABLET (UD) PO SCH (13:33)
[2017-10-30] MEDS: ACETAMINOPHEN 325 MG TABLET (FP) PO PRN (13:33)
[2017-10-30] MEDS: RANITIDINE HCL 150 MG TABLET (FP) PO SCH (13:34)
[2017-10-30] MEDS ORDERED: MAGNESIUM SULF 50% (8.12 MEQ/2 ML-1 GM VIAL) ONE (14:20)
--- NOTE | 2017-10-30 14:21 | CON.ORTH ---
Consult Reason for Consultation:: right hip pain - Past Medical History Pulmonary: Yes: Cancer (Metastatic from breast) - Past Surgical History Additional Surgical History: Lumpectomy and port removal and reimsertion - Alcohol/Substance Use Hx Alcohol Use: No (RARELY) - Smoking History Smoking history: Never smoked Have you smoked in the past 12 months: No Home Medications - Allergies Allergies/Adverse Reactions: Allergies Allergy/AdvReac Type Severity Reaction Status Date / Time No Known Drug Allergies Allergy Verified 09/04/15 11:26 platelets AdvReac Chills Uncoded 08/15/15 07:05 - Home Medications Home Medications: Ambulatory Orders Benzonatate [Tessalon Pearls -] 100 mg PO TID 10/23/17 Chemo Theapy Diluent No.1/Pf [Elliotts B Solution Ampule] 1 ml IT ASDIR Nystatin Oral Suspension - [Nystatin Oral Susp 208342 Units/5 ML -] 500,000 units PO TID 10/23/17 Sulfamethoxazole/Trimethoprim [Bactrim Ds -] 1 tab PO BID 10/23/17 Family Disease History - Family Disease History Family Disease History: CA: Grandparent, Brother (esophageal) Physical Exam for Ortho Vital Signs: Vital Signs Temperature 98.3 F 10/30/17 06:00 Pulse Rate 108 H 10/30/17 06:00 Respiratory Rate 20 10/30/17 06:00 Blood Pressure 130/68 10/30/17 06:00 O2 Sat by Pulse Oximetry (%) 93 L 10/30/17 06:00 Labs: CBC, BMP 10/29/17 16:25 10/29/17 16:25 INR, PTT INR 1.24 (0.82-1.09) H 10/28/17 08:20 - Lower Extremity Hip: Yes: Right (no swelling, mild ttp, able to flex hip to 90 degrees with some mild pain, no pain in IR or ER, equal limb lengths, nvi) Imaging - Results X-ray: Report Reviewed, Image Reviewed Cat Scan: Report Reviewed, Image Reviewed Assessment/Plan 72 y/o female with a past medical history of metastic (Brain and lung) breast CA stage IV and Von Willerbrand's disease, patient receives in chemotherapy weekly, next dose is 10/28/17. Patient received 2 doses of neupogen , Thursday (10/21) and (10/22). She reports ongoing moist cough for the past month and within the past 30 days, she has completed five days of zithromax, solumedrol last dose was 10/21/17, and is on day 3 of bactrim. Patient reports ongoing generalized weakness and worsening of the cough. c/o right hip pain for the past 4 days. denies any trauma. pain has improved significantly in the past few days. afebrile with normal wbc. a/p- Right hip djd, does not appear septic at the present time No surgical intervention at this time continue abx as per ID PT eval wbat dvt ppx pain control will follow d/w Dr. Rolon
--- NOTE | 2017-10-30 17:36 | PN ---
Progress Note (short form) - Note Progress Note: Pt seen 10/29/17 4:30p c/o R hip pain. had PAC removed in setting of bacteremia and to have PICC placed tomorrow PE resting, appears comfortable; conversant o/p - no thrush; no active mucositis (stable, dry patch posterior pharynx) lungs-ant CTA CVS-reg S1S2 abd-soft, obese, NT R lat hip -no ecchymoses, no focal tenderness LE - SCDs, no edema, no petechiae Imp: met breast cancer; bacteremia/endocarditis? s/p palliative chemo (CMF) recently Resolved neutropenia Thrombocytopenia - suspect related to sepsis, endocarditis? possib abx, DIC h/o vWD unclear Monitor plts/PT/PTT. Anticip plt count to return to baseline as infxn is treated
--- NOTE | 2017-10-30 17:47 | PN ---
Progress Note, Physician History of Present Illness: Remains afebrile, feels weak, positive blood cultures drawn from port shows bacteremia persists despite appropriate abx coverage. Unsuccessful PICC placement and blood draws. - Current Medication List Current Medications: Active Medications Acetaminophen (Tylenol -) 650 mg PO Q6H PRN PRN Reason: FEVER Last Admin: 10/30/17 13:33 Dose: 650 mg Albuterol Sulfate (Ventolin 0.083% Nebulizer Soln -) 1 amp NEB Q4H PRN PRN Reason: SHORT OF BREATH/WHEEZING Albuterol/Ipratropium (Duoneb -) 1 amp NEB RQID [facility] Last Admin: 10/30/17 16:13 Dose: 1 amp Artificial Tears (Artificial Tears) 1 drop OU BID PRN PRN Reason: DRY EYES Fluconazole (Diflucan -) 100 mg PO DAILY [facility] Last Admin: 10/30/17 13:33 Dose: 100 mg IV Flush (Picc Line Flush) 8 ml IVPUSH PRN PRN PRN Reason: Protocol Ampicillin Sodium 2 gm/ Sodium (Chloride) 100 mls @ 200 mls/hr IVPB Q4H [facility] Last Admin: 10/30/17 13:34 Dose: Not Given Gentamicin Sulfate 50 mg/ (Sodium Chloride) 101.25 mls @ 100 mls/hr IVPB Q12H [facility] Last Admin: 10/30/17 01:28 Dose: 100 mls/hr Lactobacillus Acidophilus (Bacid -) 1 tab PO DAILY [facility] Last Admin: 10/30/17 13:33 Dose: 1 tab Lidocaine/Aluminum/Magnesium/Simeth (Magic Mouthwash *Sjr Formula* -) 5 ml MM Q6HPO [facility] Last Admin: 10/30/17 14:18 Dose: Not Given Melatonin (Melatonin) 5 mg PO HS PRN PRN Reason: INSOMNIA Last Admin: 10/28/17 23:28 Dose: 5 mg Morphine Sulfate (Morphine Sulfate) 2 mg IVPB Q6H PRN PRN Reason: PAIN LEVEL 7 - 10 Ondansetron HCl (Zofran Odt -) 4 mg SL Q8H PRN PRN Reason: NAUSEA AND/OR VOMITING Oxycodone HCl (Roxicodone -) 5 mg PO Q6H PRN PRN Reason: PAIN LEVEL 7 - 10 Last Admin: 10/30/17 13:32 Dose: 5 mg Ranitidine HCl (Zantac -) 150 mg PO DAILY LILLIE Last Admin: 10/30/17 13:34 Dose: 150 mg - Objective Vital Signs: Vital Signs Temperature 98.3 F 10/30/17 06:00 Pulse Rate 108 H 10/30/17 06:00 Respiratory Rate 20 10/30/17 06:00 Blood Pressure 130/68 10/30/17 06:00 O2 Sat by Pulse Oximetry (%) 93 L 10/30/17 06:00 Constitutional: Yes: No Distress, Calm Neck: Yes: Supple Cardiovascular: Yes: Regular Rate and Rhythm Respiratory: Yes: Regular, Diminished Gastrointestinal: Yes: Normal Bowel Sounds, Soft, Abdomen, Obese Edema: Yes Edema: LUE: 2+, RUE: 2+ Labs: CBC, BMP 10/29/17 16:25 10/29/17 16:25 INR, PTT INR 1.24 (0.82-1.09) H 10/28/17 08:20 Problem List - Problems (1) Bacteremia Code(s): R78.81 - BACTEREMIA (2) 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 Code(s): C50.919 - MALIGNANT NEOPLASM OF UNSP SITE OF UNSPECIFIED FEMALE BREAST ; C78.00 - SECONDARY MALIGNANT NEOPLASM OF UNSPECIFIED LUNG Qualifiers: Laterality: right Qualified Code(s): C50.911 - Malignant neoplasm of unspecified site of right female breast; C78.00 - Secondary malignant neoplasm of unspecified lung; C78.00 - Secondary malignant neoplasm of unspecified lung; C78.00 - Secondary malignant neoplasm of unspecified lung; C78.00 - Secondary malignant neoplasm of unspecified lung (3) Pneumonia Code(s): J18.9 - PNEUMONIA, UNSPECIFIED ORGANISM (4) Urinary tract infection Code(s): N39.0 - URINARY TRACT INFECTION, SITE NOT SPECIFIED Qualifiers: Urinary tract infection type: site unspecified Hematuria presence: without hematuria Qualified Code(s): N39.0 - Urinary tract infection, site not specified (5) Breast cancer metastasized to brain Code(s): C50.919 - MALIGNANT NEOPLASM OF UNSP SITE OF UNSPECIFIED FEMALE BREAST ; C79.31 - SECONDARY MALIGNANT NEOPLASM OF BRAIN Qualifiers: Laterality: unspecified laterality Qualified Code(s): C50.919 - Malignant neoplasm of unspecified site of unspecified female breast; C79.31 - Secondary malignant neoplasm of brain; C79.31 - Secondary malignant neoplasm of brain; C79.31 - Secondary malignant neoplasm of brain; C79.31 - Secondary malignant neoplasm of brain (6) Thrombocytopenia Code(s): D69.6 - THROMBOCYTOPENIA, UNSPECIFIED (7) Anemia Code(s): D64.9 - ANEMIA, UNSPECIFIED Qualifiers: Anemia type: bone marrow failure Bone marrow failure anemia type: pancytopenia, antineoplastic chemotherapy-induced Qualified Code(s): D61.810 - Antineoplastic chemotherapy induced pancytopenia; T45.1X5A - Adverse effect of antineoplastic and immunosuppressive drugs, initial encounter; T45.1X5A - Adverse effect of antineoplastic and immunosuppressive drugs, initial encounter Assessment/Plan 1. Suspicious mobile LA echodensity, etiology unclear 2. Enterococcal bacteremia/sepsis suspect port infection 3. Multilobar PNA 4. Breast CA with metastasis to brain and lung post lumpectomy, gamma knife and radiation and chemotherapy 5. Anemia, thrombocytopenia referable to sepsis PLAN: 1. Transthoracic echocardiography images reviewed personally. Ideally Transesophageal echocardiography would be helpful especially if bacteremia persists once clinically improved, ID input appreciated. Amp/Gent coverage via PICC per C&S 2. Oncology input appreciated. Port has been removed and cath tip culture pending. Repeat surveillance cultures, 3. Plan of care relayed to family
[2017-10-31] MEDS: MAG HYDROX/ALH/SMC/DPHA/LIDO 240 ML MOUTHWASH MM SCH ×4 (01:01→17:25)
[2017-10-31] MEDS: SODIUM CHLORIDE IVPB SCH ×3 (01:15→16:35)
[2017-10-31] MEDS: GENTAMICIN IVPB SCH ×3 (01:15→16:35)
[2017-10-31] MEDS: AMPICILLIN - 2 GM in SODIUM CHLORIDE 100 ML IVPB SCH ×6 (02:13→22:12)
[2017-10-31 07:35] LABS: HEMATOCRIT 22.1 % (32.4-45.2); HEMOGLOBIN 7.3 GM/dL (10.7-15.3); MCH 31.9 pg (25.7-33.7); MCHC 33.3 g/dl (32.0-36.0); MEAN CELL VOLUME 95.9 fl (80-96); MEAN PLT VOLUME 8.5 fl (7.5-11.1); PLATELET COUNT 74 K/MM3 (134-434); RDW 17.8 % (11.6-15.6); WHITE BLOOD COUNT 6.3 K/mm3 (4.0-10.0)
[2017-10-31] MEDS ORDERED: ALBUTEROL SO4 0.083% IH SOL 2.5 MG/3 ML VIAL.NEB. NEB PRN (08:03)
[2017-10-31] MEDS ORDERED: ONDANSETRON *ODT* 4 MG TABLET SL PRN (08:03)
[2017-10-31] MEDS ORDERED: ARTIFICIAL TEARS (POLYVINYL ALCOHOL 1.4%) OPTH DROPS OU PRN (08:03)
[2017-10-31 08:28] LABS: CHLORIDE 105 mmol/L (98-107); POTASSIUM 3.5 mmol/L (3.5-5.1); SODIUM 144 mmol/L (136-145)
[2017-10-31 08:35] LABS: ALBUMIN 1.5 g/dl (3.4-5.0); ALK PHOS 89 U/L (45-117); ANION GAP 7 (8-16); BILIRUBIN,TOTAL 0.5 mg/dL (0.2-1.0); BLOOD UREA NITROGEN 7 mg/dL (7-18); CALCIUM 7.5 mg/dL (8.5-10.1); CO2 32 mmol/L (21-32); CREATININE 0.3 mg/dL (0.55-1.02); GLUCOSE,RANDOM 75 mg/dL (74-106); MAGNESIUM 1.7 mg/dL (1.8-2.4); SGOT/AST 13 U/L (15-37); SGPT/ALT 16 U/L (12-78); TOT PROT 4.7 g/dl (6.4-8.2)
[2017-10-31] MEDS ORDERED: PT OWN MED DRAWER 7, Y5N ONE ×3 (10:14→20:26)
[2017-10-31] MEDS ORDERED: AMPICILLIN - 2 GM in SODIUM CHLORIDE 100 ML IVPB SCH (10:15)
[2017-10-31] MEDS: oxyCODONE HCL 5 MG TABLET PO PRN ×2 (10:28→20:28)
[2017-10-31] MEDS: FLUCONAZOLE 100 MG TABLET (UD) PO SCH (10:28)
[2017-10-31] MEDS: LACTOBACILLUS ACIDOPHILUS 1 EACH TAB (FP) PO SCH (10:28)
[2017-10-31] MEDS: RANITIDINE HCL 150 MG TABLET (FP) PO SCH (10:28)
[2017-10-31] MEDS: ALBUTEROL SO4 2.5/IPRATROPIUM 0.5 INH SOL 3 ML VIAL.NEB. NEB SCH ×3 (11:55→20:55)
--- NOTE | 2017-10-31 12:07 | PN ---
Progress Note (short form) - Note Progress Note: Subjective: The patient was seen and examined at the bedside, she states she is feeling "better" at this time. She has no complaints Current Medications Generic Name Dose Route Start Last Admin Trade Name Freq PRN Reason Stop Dose Admin Acetaminophen 650 mg 10/31/17 08:03 Tylenol - PO Q6H PRN FEVER Albuterol Sulfate 1 amp 10/31/17 08:03 10/31/17 08:20 Ventolin 0.083% Nebulizer Soln - NEB 1 amp Q4H PRN Administration SHORT OF BREATH/WHEEZING Albuterol/Ipratropium 1 amp 10/31/17 12:00 Duoneb - NEB RQID LILLIE Artificial Tears 1 drop 10/31/17 08:03 Artificial Tears OU BID PRN DRY EYES Fluconazole 100 mg 10/31/17 10:00 10/31/17 10:28 Diflucan - PO 100 mg DAILY LILLIE Administration IV Flush 8 ml 10/29/17 12:06 Picc Line Flush IVPUSH PRN PRN Protocol Gentamicin Sulfate 50 mg/ 101.25 mls @ 100 mls/hr 10/31/17 14:15 Sodium Chloride IVPB Q12H LILLIE Ampicillin Sodium 2 gm/ Sodium 100 mls @ 200 mls/hr 10/31/17 10:30 10/31/17 11:00 Chloride IVPB Not Given Q4H-IV LILLIE Lactobacillus Acidophilus 1 tab 10/31/17 10:00 10/31/17 10:28 Bacid - PO 1 tab DAILY LILLIE Administration Lidocaine/Aluminum/Magnesium/Simeth 5 ml 10/31/17 12:00 Magic Mouthwash *Sjr Formula* - MM Q6HPO LILLIE Melatonin 5 mg 10/31/17 22:00 Melatonin PO HS PRN INSOMNIA Morphine Sulfate 2 mg 10/30/17 13:25 Morphine Sulfate IVPB Q6H PRN PAIN LEVEL 7 - 10 Ondansetron HCl 4 mg 10/31/17 08:03 Zofran Odt - SL Q8H PRN NAUSEA AND/OR VOMITING Oxycodone HCl 5 mg 10/31/17 08:03 10/31/17 10:28 Roxicodone - PO 5 mg Q6H PRN Administration PAIN LEVEL 7 - 10 Ranitidine HCl 150 mg 10/31/17 10:00 10/31/17 10:28 Zantac - PO 150 mg DAILY LILLIE Administration Objective: Vital Signs Period Temp Pulse Resp BP Sys/Blum Pulse Ox Last 24 Hr 97.3 F-97.8 F 88-101 19-24 88-123/56-75 96 Physical Exam: General: NAD HEENT: No evidence of thrush Lungs: Diminished breath sounds bilaterally Heart: RRR, S1S2 Abd: Soft, non-tender, non-distended. Normoactive bowel sounds Ext: 2+ B/l upper extremity pitting edema CBCD WBC 6.3 K/mm3 (4.0-10.0) D 10/31/17 06:10 RBC 2.30 M/mm3 (3.60-5.2) L D 10/31/17 06:10 Hgb 7.3 GM/dL (10.7-15.3) L D 10/31/17 06:10 Hct 22.1 % (32.4-45.2) L D 10/31/17 06:10 MCV 95.9 fl (80-96) 10/31/17 06:10 MCHC 33.3 g/dl (32.0-36.0) 10/31/17 06:10 RDW 17.8 % (11.6-15.6) H 10/31/17 06:10 Plt Count 74 K/MM3 (134-434) L D 10/31/17 06:10 MPV 8.5 fl (7.5-11.1) 10/31/17 06:10 CMP Sodium 144 mmol/L (136-145) 10/31/17 06:10 Potassium 3.5 mmol/L (3.5-5.1) 10/31/17 06:10 Chloride 105 mmol/L (98-107) 10/31/17 06:10 Carbon Dioxide 32 mmol/L (21-32) 10/31/17 06:10 Anion Gap 7 (8-16) L 10/31/17 06:10 BUN 7 mg/dL (7-18) 10/31/17 06:10 Creatinine 0.3 mg/dL (0.55-1.02) L 10/31/17 06:10 Creat Clearance w eGFR > 60 (>60) 10/31/17 06:10 Random Glucose 75 mg/dL (74-106) 10/31/17 06:10 Calcium 7.5 mg/dL (8.5-10.1) L 10/31/17 06:10 Total Bilirubin 0.5 mg/dL (0.2-1.0) 10/31/17 06:10 AST 13 U/L (15-37) L 10/31/17 06:10 ALT 16 U/L (12-78) 10/31/17 06:10 Alkaline Phosphatase 89 U/L (45-117) 10/31/17 06:10 Total Protein 4.7 g/dl (6.4-8.2) L 10/31/17 06:10 Albumin 1.5 g/dl (3.4-5.0) L 10/31/17 06:10 CARDIAC ENZYMES Creatine Kinase 67 IU/L (26-192) 10/23/17 02:40 Troponin I < 0.02 ng/ml (0.00-0.05) 10/23/17 02:40 Microbiology 10/26/17 10:40 Blood - Brenda Cath Blood Culture - Final NO GROWTH AFTER 5 DAYS INCUBATION 10/28/17 09:50 Blood - Brenda Cath Blood Culture - Preliminary NO GROWTH OBTAINED AFTER 72 HOURS, INCUBATION TO CONTINUE FOR 2 DAYS. 10/28/17 09:50 Blood - Brenda Cath Blood Culture - Preliminary Pending Organism 10/28/17 13:18 Tissue-Other Tissue Culture - Preliminary NO AEROBIC GROWTH, 24 HRS 10/26/17 10:00 Blood - Brenda Cath Blood Culture - Final Enterococcus Faecalis 10/25/17 06:00 Urine For Antigen Detection Legionella Antigen - Final 10/25/17 06:00 Urine For Antigen Detection Streptococcus pneumoniae Antigen (M - Final 10/23/17 10:55 Blood - Brenda Cath Blood Culture - Final Enterococcus Faecalis 10/23/17 04:20 Blood - Peripheral Venous Blood Culture - Final Enterococcus Faecalis 10/23/17 04:20 Blood - Peripheral Venous Blood Culture - Final Enterococcus Faecalis 10/23/17 04:05 Urine - Urine Clean Catch Urine Culture - Final Escherichia Coli 10/23/17 07:15 Nasopharyngeal Swab Influenza Types A,B Antigen (KRISSY) - Final 10/23/17 07:15 Nasopharyngeal Swab - Final Assessment: This is a 72 year old female with PMHx of metastatic breast cancer ( lung and brain), seizure disorder, Von Willebrand disease, s/p gastric band, appendectomy, tubal ligation, cataract surgery, who presented to the ED with several days of worsening dyspnea, cough, and generalized weakness. 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 Garibay to reassess discharge abx on Thursday - Appreciate ID consult 2) Metastatic breast cancer - Follow-up outpatient oncologist upon discharge 3) Thrombocytopenia: - Likely 2/2 sepsis, continue to monitor 4) Anemia - Transfuse if Hgb <7 5) Right hip pain - Evaluated by ortho and does not appear to be septic join at this time - WBAT - PT evaluation 6) F/E/N: - Monitor electrolytes - Regular diet 7) Prophylaxis: - Hold all chemical DVT prophylaxis 2/2 thrombocyopenia 8) Dispo: - Requires continued inpatient care CODE STATUS: FULL CODE Visit type - Emergency Visit Emergency Visit: Yes ED Registration Date: 10/23/17 Care time: The patient presented to the Emergency Department on the above date and was hospitalized for further evaluation of their emergent condition. - New Patient This patient is new to me today: Yes Date on this admission: 11/01/17 - Critical Care Critical Care patient: No
--- NOTE | 2017-10-31 15:48 | PN ---
Progress Note (short form) - Note Progress Note: awake and alert no iv access received amp/gent this am Vital Signs Period Temp Pulse Resp BP Sys/Blum Pulse Ox Last 24 Hr 97.3 F-98.2 F 88-108 18-24 88-123/56-75 96 cor-rrr no thrush lungs clear abd soft,nt ext no lower ext edema CBC, BMP 10/31/17 06:10 10/31/17 06:10 Microbiology 10/26/17 10:40 Blood - Brenda Cath Blood Culture - Final NO GROWTH AFTER 5 DAYS INCUBATION 10/28/17 09:50 Blood - Brenda Cath Blood Culture - Preliminary NO GROWTH OBTAINED AFTER 72 HOURS, INCUBATION TO CONTINUE FOR 2 DAYS. 10/28/17 09:50 Blood - Brenda Cath Blood Culture - Preliminary Pending Organism 10/28/17 13:18 Tissue-Other Tissue Culture - Preliminary NO AEROBIC GROWTH, 24 HRS 10/26/17 10:00 Blood - Brenda Cath Blood Culture - Final Enterococcus Faecalis 10/25/17 06:00 Urine For Antigen Detection Legionella Antigen - Final 10/25/17 06:00 Urine For Antigen Detection Streptococcus pneumoniae Antigen (M - Final 10/23/17 10:55 Blood - Brenda Cath Blood Culture - Final Enterococcus Faecalis 10/23/17 04:20 Blood - Peripheral Venous Blood Culture - Final Enterococcus Faecalis 10/23/17 04:20 Blood - Peripheral Venous Blood Culture - Final Enterococcus Faecalis 10/23/17 04:05 Urine - Urine Clean Catch Urine Culture - Final Escherichia Coli 10/23/17 07:15 Nasopharyngeal Swab Influenza Types A,B Antigen (KRISSY) - Final 10/23/17 07:15 Nasopharyngeal Swab - Final a/p enterococcal bacteremia/sepsis ?endocarditis s/p port removal d/w Dr Garibay yesterday plan is for [facility] iv antibiotics amp/gent repeat blood cultures sent iv access is a problem informed hospitalist d/w daughters at the bedside d/w at the bedside
--- NOTE | 2017-10-31 21:00 | PN ---
Progress Note, Physician History of Present Illness: Remains afebrile, feels weak, positive blood cultures drawn from port shows bacteremia persists despite appropriate abx coverage. Unsuccessful PICC placement and blood draws. - Current Medication List Current Medications: Active Medications Acetaminophen (Tylenol -) 650 mg PO Q6H PRN PRN Reason: FEVER Albuterol Sulfate (Ventolin 0.083% Nebulizer Soln -) 1 amp NEB Q4H PRN PRN Reason: SHORT OF BREATH/WHEEZING Last Admin: 10/31/17 08:20 Dose: 1 amp Albuterol/Ipratropium (Duoneb -) 1 amp NEB RQID [facility] Last Admin: 10/31/17 16:35 Dose: 1 amp Artificial Tears (Artificial Tears) 1 drop OU BID PRN PRN Reason: DRY EYES Fluconazole (Diflucan -) 100 mg PO DAILY [facility] Last Admin: 10/31/17 10:28 Dose: 100 mg IV Flush (Picc Line Flush) 8 ml IVPUSH PRN PRN PRN Reason: Protocol Gentamicin Sulfate 50 mg/ (Sodium Chloride) 101.25 mls @ 100 mls/hr IVPB Q12H [facility] Last Admin: 10/31/17 16:35 Dose: 100 mls/hr Ampicillin Sodium 2 gm/ Sodium (Chloride) 100 mls @ 200 mls/hr IVPB Q4H-IV [facility] Last Admin: 10/31/17 17:47 Dose: 200 mls/hr Lactobacillus Acidophilus (Bacid -) 1 tab PO DAILY [facility] Last Admin: 10/31/17 10:28 Dose: 1 tab Lidocaine/Aluminum/Magnesium/Simeth (Magic Mouthwash *Sjr Formula* -) 5 ml MM Q6HPO [facility] Last Admin: 10/31/17 17:25 Dose: 5 ml Melatonin (Melatonin) 5 mg PO HS PRN PRN Reason: INSOMNIA Morphine Sulfate (Morphine Sulfate) 2 mg IVPB Q6H PRN PRN Reason: PAIN LEVEL 7 - 10 Ondansetron HCl (Zofran Odt -) 4 mg SL Q8H PRN PRN Reason: NAUSEA AND/OR VOMITING Oxycodone HCl (Roxicodone -) 5 mg PO Q6H PRN PRN Reason: PAIN LEVEL 7 - 10 Last Admin: 10/31/17 20:28 Dose: 5 mg Ranitidine HCl (Zantac -) 150 mg PO DAILY [facility] Last Admin: 10/31/17 10:28 Dose: 150 mg - Objective Vital Signs: Vital Signs Temperature 98 F 10/31/17 19:04 Pulse Rate 108 H 10/31/17 13:41 Respiratory Rate 18 10/31/17 13:41 Blood Pressure 116/63 10/31/17 13:41 O2 Sat by Pulse Oximetry (%) 99 10/31/17 09:25 Constitutional: Yes: No Distress, Calm Neck: Yes: Supple Cardiovascular: Yes: Regular Rate and Rhythm Respiratory: Yes: Regular, Diminished Gastrointestinal: Yes: Normal Bowel Sounds, Soft, Abdomen, Obese Edema: Yes Edema: LUE: 2+, RUE: 2+ Labs: CBC, BMP 10/31/17 06:10 10/31/17 06:10 INR, PTT INR 1.24 (0.82-1.09) H 10/28/17 08:20 Problem List - Problems (1) Bacteremia Code(s): R78.81 - BACTEREMIA (2) 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 Code(s): C50.919 - MALIGNANT NEOPLASM OF UNSP SITE OF UNSPECIFIED FEMALE BREAST ; C78.00 - SECONDARY MALIGNANT NEOPLASM OF UNSPECIFIED LUNG Qualifiers: Laterality: right Qualified Code(s): C50.911 - Malignant neoplasm of unspecified site of right female breast; C78.00 - Secondary malignant neoplasm of unspecified lung; C78.00 - Secondary malignant neoplasm of unspecified lung; C78.00 - Secondary malignant neoplasm of unspecified lung; C78.00 - Secondary malignant neoplasm of unspecified lung (3) Pneumonia Code(s): J18.9 - PNEUMONIA, UNSPECIFIED ORGANISM (4) Urinary tract infection Code(s): N39.0 - URINARY TRACT INFECTION, SITE NOT SPECIFIED Qualifiers: Urinary tract infection type: site unspecified Hematuria presence: without hematuria Qualified Code(s): N39.0 - Urinary tract infection, site not specified (5) Breast cancer metastasized to brain Code(s): C50.919 - MALIGNANT NEOPLASM OF UNSP SITE OF UNSPECIFIED FEMALE BREAST ; C79.31 - SECONDARY MALIGNANT NEOPLASM OF BRAIN Qualifiers: Laterality: unspecified laterality Qualified Code(s): C50.919 - Malignant neoplasm of unspecified site of unspecified female breast; C79.31 - Secondary malignant neoplasm of brain; C79.31 - Secondary malignant neoplasm of brain; C79.31 - Secondary malignant neoplasm of brain; C79.31 - Secondary malignant neoplasm of brain (6) Thrombocytopenia Code(s): D69.6 - THROMBOCYTOPENIA, UNSPECIFIED (7) Anemia Code(s): D64.9 - ANEMIA, UNSPECIFIED Qualifiers: Anemia type: bone marrow failure Bone marrow failure anemia type: pancytopenia, antineoplastic chemotherapy-induced Qualified Code(s): D61.810 - Antineoplastic chemotherapy induced pancytopenia; T45.1X5A - Adverse effect of antineoplastic and immunosuppressive drugs, initial encounter; T45.1X5A - Adverse effect of antineoplastic and immunosuppressive drugs, initial encounter Assessment/Plan 1. Suspicious mobile LA echodensity, etiology unclear 2. Enterococcal bacteremia/sepsis suspect port infection 3. Multilobar PNA 4. Breast CA with metastasis to brain and lung post lumpectomy, gamma knife and radiation and chemotherapy 5. Anemia, thrombocytopenia referable to sepsis PLAN: 1. Transthoracic echocardiography images reviewed personally. Ideally Transesophageal echocardiography would be helpful especially if bacteremia persists once clinically improved, ID input appreciated. Amp/Gent coverage via PICC per C&S 2. Oncology input appreciated. Port has been removed and cath tip culture pending. Repeat surveillance cultures, 3. Plan of care relayed to family
[2017-10-31] MEDS ORDERED: MAGNESIUM OXIDE 400 MG TABLET (FP) PO ONE (21:14)
--- NOTE | 2017-10-31 23:05 | PN ---
Progress Note (short form) - Note Progress Note: Vascular Surgery Pt seen and examined. Recent port removal last thurs at [facility]. Now transferred here for sepsis workup. Called for access. IV in left arm working good for now. IV antibiotics. Will be on standby Romero schmitz DO
[2017-11-01] MEDS: GENTAMICIN IVPB SCH (01:29)
[2017-11-01] MEDS: SODIUM CHLORIDE IVPB SCH (01:29)
[2017-11-01] MEDS: AMPICILLIN - 2 GM in SODIUM CHLORIDE 100 ML IVPB SCH ×6 (02:29→23:34)
[2017-11-01] MEDS: MAG HYDROX/ALH/SMC/DPHA/LIDO 240 ML MOUTHWASH MM SCH ×5 (05:54→23:36)
[2017-11-01 07:18] LABS: ALBUMIN 1.5 g/dl (3.4-5.0); ALK PHOS 89 U/L (45-117); ANION GAP 4 (8-16); BILIRUBIN,TOTAL 0.5 mg/dL (0.2-1.0); BLOOD UREA NITROGEN 10 mg/dL (7-18); CALCIUM 7.7 mg/dL (8.5-10.1); CHLORIDE 101 mmol/L (98-107); CO2 37 mmol/L (21-32); CREATININE 0.4 mg/dL (0.55-1.02); GLUCOSE,RANDOM 83 mg/dL (74-106); MAGNESIUM 1.8 mg/dL (1.8-2.4); POTASSIUM 3.6 mmol/L (3.5-5.1); SGOT/AST 12 U/L (15-37); SGPT/ALT 15 U/L (12-78); SODIUM 142 mmol/L (136-145); TOT PROT 4.5 g/dl (6.4-8.2)
[2017-11-01 07:30] LABS: HEMOGLOBIN 7.3 GM/dL (10.7-15.3); MCHC 33.1 g/dl (32.0-36.0); MEAN CELL VOLUME 96.8 fl (80-96); MEAN PLT VOLUME 8.7 fl (7.5-11.1); PLATELET COUNT 86 K/MM3 (134-434); RBC 2.27 M/mm3 (3.60-5.2); RDW 18.3 % (11.6-15.6); WHITE BLOOD COUNT 7.1 K/mm3 (4.0-10.0)
[2017-11-01] MEDS: ALBUTEROL SO4 2.5/IPRATROPIUM 0.5 INH SOL 3 ML VIAL.NEB. NEB SCH ×4 (07:35→20:50)
[2017-11-01] MEDS: FLUCONAZOLE 100 MG TABLET (UD) PO SCH (09:28)
[2017-11-01] MEDS: RANITIDINE HCL 150 MG TABLET (FP) PO SCH (09:28)
[2017-11-01] MEDS: LACTOBACILLUS ACIDOPHILUS 1 EACH TAB (FP) PO SCH (09:28)
[2017-11-01 10:15] LABS: PLATELET ESTIMATE DECREASED
--- NOTE | 2017-11-01 10:16 | PN ---
Progress Note (short form) - Note Progress Note: awake and alert feels better iv access resumed yesterday c/o pain and constipation Vital Signs Period Temp Pulse Resp BP Sys/Blum Pulse Ox Last 24 Hr 97.5 F-98.2 F 98-117 18-19 96-116/56-63 99 cor-rrr lungs decreased bs at bases abd soft,nt ext edema both arms CBC, BMP 11/01/17 06:00 11/01/17 06:00 Microbiology 10/31/17 12:15 Blood - Peripheral Venous Blood Culture - Preliminary Pending Organism 10/28/17 13:18 Tissue-Other Tissue Culture - Preliminary Group D Strep Or Entero Coccus 10/26/17 10:40 Blood - Brenda Cath Blood Culture - Final NO GROWTH AFTER 5 DAYS INCUBATION 10/28/17 09:50 Blood - Brenda Cath Blood Culture - Preliminary NO GROWTH OBTAINED AFTER 72 HOURS, INCUBATION TO CONTINUE FOR 2 DAYS. 10/28/17 09:50 Blood - Brenda Cath Blood Culture - Preliminary Pending Organism 10/26/17 10:00 Blood - Brenda Cath Blood Culture - Final Enterococcus Faecalis 10/25/17 06:00 Urine For Antigen Detection Legionella Antigen - Final 10/25/17 06:00 Urine For Antigen Detection Streptococcus pneumoniae Antigen (M - Final 10/23/17 10:55 Blood - Brenda Cath Blood Culture - Final Enterococcus Faecalis 10/23/17 04:20 Blood - Peripheral Venous Blood Culture - Final Enterococcus Faecalis 10/23/17 04:20 Blood - Peripheral Venous Blood Culture - Final Enterococcus Faecalis 10/23/17 04:05 Urine - Urine Clean Catch Urine Culture - Final Escherichia Coli 10/23/17 07:15 Nasopharyngeal Swab Influenza Types A,B Antigen (KRISSY) - Final 10/23/17 07:15 Nasopharyngeal Swab - Final a/p enterococcal bacteremia/sepsis ?endocarditis-abnl echo s/p port removal 10/28 blood culture 1 bottle positive 10/31-gpc pairs and chains continue ampicillin, switch to ceftriaxone for synergy-has been on gent for one week will d/w cardiology as well duplex of both arms r/o dvt metastatic breast cancer d/w hospitalist d/w daughter at bedside
[2017-11-01] MEDS ORDERED: CEFTRIAXONE IN IS-OSM DEXTROSE 2 GM/50 ML BAG IVPB SCH (10:45)
[2017-11-01] MEDS ORDERED: cefTRIAXone 2 GM/100 ML BAG (PRE-DOCKED) IVPB SCH ×2 (10:45→10:52)
[2017-11-01] MEDS ORDERED: SENNOSIDES 8.6MG TABLET (FP) PO PRN (12:19)
[2017-11-01] MEDS ORDERED: PT OWN MED DRAWER 7, Y5N ONE (14:09)
[2017-11-01] MEDS: DOCUSATE SODIUM 100 MG CAPSULE (FP) PO SCH ×2 (14:12→22:45)
[2017-11-01] MEDS: POLYETHYLENE GLYCOL 3350 119 GM BTL PO SCH (14:12)
--- NOTE | 2017-11-01 15:48 | PN ---
Progress Note (short form) - Note Progress Note: Subjective: The patient was seen and examined at the bedside, she is eating breakfast stating she feels "good" Current Medications Generic Name Dose Route Start Last Admin Trade Name Freq PRN Reason Stop Dose Admin Acetaminophen 650 mg 10/31/17 08:03 Tylenol - PO Q6H PRN FEVER Albuterol Sulfate 1 amp 10/31/17 08:03 10/31/17 08:20 Ventolin 0.083% Nebulizer Soln - NEB 1 amp Q4H PRN Administration SHORT OF BREATH/WHEEZING Albuterol/Ipratropium 1 amp 10/31/17 12:00 11/01/17 11:15 Duoneb - NEB 1 amp RQID [facility] Administration Artificial Tears 1 drop 10/31/17 08:03 Artificial Tears OU BID PRN DRY EYES Ceftriaxone Sodium 2 gm 11/01/17 10:52 Rocephin 2gm Ivpb (Pre-Docked) IVPB BID [facility] Protocol Docusate Sodium 100 mg 11/01/17 14:00 11/01/17 14:12 Colace - PO 100 mg TID [facility] Administration Fluconazole 100 mg 10/31/17 10:00 11/01/17 09:28 Diflucan - PO 100 mg DAILY [facility] Administration IV Flush 8 ml 10/29/17 12:06 Picc Line Flush IVPUSH PRN PRN Protocol Ampicillin Sodium 2 gm/ Sodium 100 mls @ 200 mls/hr 10/31/17 10:30 11/01/17 09:30 Chloride IVPB 200 mls/hr Q4H-IV [facility] Administration Lactobacillus Acidophilus 1 tab 10/31/17 10:00 11/01/17 09:28 Bacid - PO 1 tab DAILY [facility] Administration Lidocaine/Aluminum/Magnesium/Simeth 5 ml 10/31/17 12:00 11/01/17 05:54 Magic Mouthwash *Sjr Formula* - MM 5 ml Q6HPO [facility] Administration Melatonin 5 mg 10/31/17 22:00 Melatonin PO HS PRN INSOMNIA Morphine Sulfate 2 mg 10/30/17 13:25 Morphine Sulfate IVPB Q6H PRN PAIN LEVEL 7 - 10 Ondansetron HCl 4 mg 10/31/17 08:03 Zofran Odt - SL Q8H PRN NAUSEA AND/OR VOMITING Oxycodone HCl 5 mg 10/31/17 08:03 10/31/17 20:28 Roxicodone - PO 5 mg Q6H PRN Administration PAIN LEVEL 7 - 10 Polyethylene Glycol 17 gm 11/01/17 12:30 11/01/17 14:12 Miralax (For Daily Use) - PO 17 gm DAILY [facility] Administration Ranitidine HCl 150 mg 10/31/17 10:00 11/01/17 09:28 Zantac - PO 150 mg DAILY [facility] Administration Senna 2 tab 11/01/17 12:19 Senna - PO HS PRN CONSTIPATION Objective: Vital Signs Period Temp Pulse Resp BP Sys/Blum Pulse Ox Last 24 Hr 97.5 F-98.3 F 98-117 - 96-110/56-60 99 Physical Exam: General: NAD HEENT: No evidence of thrush Lungs: Diminished breath sounds bilaterally Heart: RRR, S1S2 Abd: Soft, non-tender, non-distended. Normoactive bowel sounds Ext: 2+ B/l upper extremity pitting edema CBCD WBC 7.1 K/mm3 (4.0-10.0) 11/01/17 06:00 RBC 2.27 M/mm3 (3.60-5.2) L 11/01/17 06:00 Hgb 7.3 GM/dL (10.7-15.3) L 11/01/17 06:00 Hct 22.0 % (32.4-45.2) L 11/01/17 06:00 MCV 96.8 fl (80-96) H 11/01/17 06:00 MCHC 33.1 g/dl (32.0-36.0) 11/01/17 06:00 RDW 18.3 % (11.6-15.6) H 11/01/17 06:00 Plt Count 86 K/MM3 (134-434) L 11/01/17 06:00 MPV 8.7 fl (7.5-11.1) 11/01/17 06:00 CMP Sodium 142 mmol/L (136-145) 11/01/17 06:00 Potassium 3.6 mmol/L (3.5-5.1) 11/01/17 06:00 Chloride 101 mmol/L (98-107) 11/01/17 06:00 Carbon Dioxide 37 mmol/L (21-32) H 11/01/17 06:00 Anion Gap 4 (8-16) L 11/01/17 06:00 BUN 10 mg/dL (7-18) 11/01/17 06:00 Creatinine 0.4 mg/dL (0.55-1.02) L 11/01/17 06:00 Creat Clearance w eGFR > 60 (>60) 11/01/17 06:00 Random Glucose 83 mg/dL (74-106) 11/01/17 06:00 Calcium 7.7 mg/dL (8.5-10.1) L 11/01/17 06:00 Total Bilirubin 0.5 mg/dL (0.2-1.0) 11/01/17 06:00 AST 12 U/L (15-37) L 11/01/17 06:00 ALT 15 U/L (12-78) 11/01/17 06:00 Alkaline Phosphatase 89 U/L (45-117) 11/01/17 06:00 Total Protein 4.5 g/dl (6.4-8.2) L 11/01/17 06:00 Albumin 1.5 g/dl (3.4-5.0) L 11/01/17 06:00 CARDIAC ENZYMES Creatine Kinase 67 IU/L (26-192) 10/23/17 02:40 Troponin I < 0.02 ng/ml (0.00-0.05) 10/23/17 02:40 Microbiology 10/31/17 12:42 Blood - Peripheral Venous Blood Culture - Preliminary NO GROWTH OBTAINED AFTER 24 HOURS, INCUBATION TO CONTINUE FOR 4 DAYS. 10/28/17 09:50 Blood - Brenda Cath Blood Culture - Preliminary NO GROWTH OBTAINED AFTER 96 HOURS, INCUBATION TO CONTINUE FOR 1 DAYS. 10/31/17 12:15 Blood - Peripheral Venous Blood Culture - Preliminary Pending Organism 10/28/17 13:18 Tissue-Other Tissue Culture - Preliminary Group D Strep Or Entero Coccus 10/26/17 10:40 Blood - Brenda Cath Blood Culture - Final NO GROWTH AFTER 5 DAYS INCUBATION 10/28/17 09:50 Blood - Brenda Cath Blood Culture - Preliminary Pending Organism 10/26/17 10:00 Blood - Brenda Cath Blood Culture - Final Enterococcus Faecalis 10/25/17 06:00 Urine For Antigen Detection Legionella Antigen - Final 10/25/17 06:00 Urine For Antigen Detection Streptococcus pneumoniae Antigen (M - Final 10/23/17 10:55 Blood - Brenda Cath Blood Culture - Final Enterococcus Faecalis 10/23/17 04:20 Blood - Peripheral Venous Blood Culture - Final Enterococcus Faecalis 10/23/17 04:20 Blood - Peripheral Venous Blood Culture - Final Enterococcus Faecalis 10/23/17 04:05 Urine - Urine Clean Catch Urine Culture - Final Escherichia Coli 10/23/17 07:15 Nasopharyngeal Swab Influenza Types A,B Antigen (KRISSY) - Final 10/23/17 07:15 Nasopharyngeal Swab - Final Assessment: This is a 72 year old female with PMHx of metastatic breast cancer ( lung and brain), seizure disorder, Von Willebrand disease, s/p gastric band, appendectomy, tubal ligation, cataract surgery, who presented to the ED with several days of worsening dyspnea, cough, and generalized weakness. Plan: 1) Sepsis 2/2 enterococcal bacteremia, multilobar pneumonia, UTI - S/p port removal on 10/28. F/u catheter tip culture - Repeat blood cultures from 10/31 with 1 bottle positive. Repeat blood cultures tomorrow - Continue Ampicillin - Cefriaxone added today - Gentamycin (discontinued on 11/01/17) - ECHO with suspicious mobile LA echodensity - Appreciate ID consult 2) B/l upper extremity edema - F/u doppler to r/o DVT - Limb elevation 3) Metastatic breast cancer - Follow-up outpatient oncologist upon discharge - Will need to discuss with oncologist tomorrow re: prognosis 4) Thrombocytopenia: - Slightly improved from yesterday - Likely 2/2 sepsis, continue to monitor 5) Anemia - Likely 2/2 sepsis - Transfuse if Hgb <7 6) Right hip pain - Evaluated by ortho and does not appear to be septic join at this time - WBAT - PT evaluation 7) F/E/N: - Monitor electrolytes - Regular diet 8) Prophylaxis: - Hold all chemical DVT prophylaxis 2/2 thrombocyopenia 9) Dispo: - Requires continued inpatient care CODE STATUS: FULL CODE Visit type - Emergency Visit Emergency Visit: Yes ED Registration Date: 10/23/17 Care time: The patient presented to the Emergency Department on the above date and was hospitalized for further evaluation of their emergent condition. - New Patient This patient is new to me today: No - Critical Care Critical Care patient: No
--- NOTE | 2017-11-01 17:50 | PN ---
Progress Note, Physician History of Present Illness: Remains afebrile, feels weak, positive blood cultures after port removal shows bacteremia persists despite appropriate abx coverage. Unsuccessful PICC placement and blood draws. - Current Medication List Current Medications: Active Medications Acetaminophen (Tylenol -) 650 mg PO Q6H PRN PRN Reason: FEVER Albuterol Sulfate (Ventolin 0.083% Nebulizer Soln -) 1 amp NEB Q4H PRN PRN Reason: SHORT OF BREATH/WHEEZING Last Admin: 10/31/17 08:20 Dose: 1 amp Albuterol/Ipratropium (Duoneb -) 1 amp NEB RQID [facility] Last Admin: 11/01/17 16:00 Dose: 1 amp Artificial Tears (Artificial Tears) 1 drop OU BID PRN PRN Reason: DRY EYES Ceftriaxone Sodium (Rocephin 2gm Ivpb (Pre-Docked)) 2 gm IVPB BID [facility]ILL[facility] PRN Reason: Protocol Docusate Sodium (Colace -) 100 mg PO TID [facility] Last Admin: 11/01/17 14:12 Dose: 100 mg Fluconazole (Diflucan -) 100 mg PO DAILY [facility] Last Admin: 11/01/17 09:28 Dose: 100 mg IV Flush (Picc Line Flush) 8 ml IVPUSH PRN PRN PRN Reason: Protocol Ampicillin Sodium 2 gm/ Sodium (Chloride) 100 mls @ 200 mls/hr IVPB Q4H-IV [facility] Last Admin: 11/01/17 17:47 Dose: 200 mls/hr Lactobacillus Acidophilus (Bacid -) 1 tab PO DAILY [facility] Last Admin: 11/01/17 09:28 Dose: 1 tab Lidocaine/Aluminum/Magnesium/Simeth (Magic Mouthwash *Sjr Formula* -) 5 ml MM Q6HPO [facility] Last Admin: 11/01/17 17:47 Dose: 5 ml Melatonin (Melatonin) 5 mg PO HS PRN PRN Reason: INSOMNIA Morphine Sulfate (Morphine Sulfate) 2 mg IVPB Q6H PRN PRN Reason: PAIN LEVEL 7 - 10 Ondansetron HCl (Zofran Odt -) 4 mg SL Q8H PRN PRN Reason: NAUSEA AND/OR VOMITING Oxycodone HCl (Roxicodone -) 5 mg PO Q6H PRN PRN Reason: PAIN LEVEL 7 - 10 Last Admin: 10/31/17 20:28 Dose: 5 mg Polyethylene Glycol (Miralax (For Daily Use) -) 17 gm PO DAILY [facility] Last Admin: 11/01/17 14:12 Dose: 17 gm Ranitidine HCl (Zantac -) 150 mg PO DAILY [facility] Last Admin: 11/01/17 09:28 Dose: 150 mg Senna (Senna -) 2 tab PO HS PRN PRN Reason: CONSTIPATION - Objective Vital Signs: Vital Signs Temperature 98.3 F 11/01/17 13:59 Pulse Rate 115 H 11/01/17 13:59 Respiratory Rate 18 11/01/17 13:59 Blood Pressure 101/56 11/01/17 13:59 O2 Sat by Pulse Oximetry (%) 99 10/31/17 21:00 Constitutional: Yes: No Distress, Calm Neck: Yes: Supple Cardiovascular: Yes: Regular Rate and Rhythm Respiratory: Yes: Regular, Diminished, On Nasal O2 Gastrointestinal: Yes: Normal Bowel Sounds, Soft, Abdomen, Obese Edema: Yes Edema: LUE: 2+, RUE: 2+ Labs: CBC, BMP 11/01/17 06:00 11/01/17 06:00 INR, PTT INR 1.24 (0.82-1.09) H 10/28/17 08:20 Problem List - Problems (1) Bacteremia Code(s): R78.81 - BACTEREMIA (2) 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 Code(s): C50.919 - MALIGNANT NEOPLASM OF UNSP SITE OF UNSPECIFIED FEMALE BREAST ; C78.00 - SECONDARY MALIGNANT NEOPLASM OF UNSPECIFIED LUNG Qualifiers: Laterality: right Qualified Code(s): C50.911 - Malignant neoplasm of unspecified site of right female breast; C78.00 - Secondary malignant neoplasm of unspecified lung; C78.00 - Secondary malignant neoplasm of unspecified lung; C78.00 - Secondary malignant neoplasm of unspecified lung; C78.00 - Secondary malignant neoplasm of unspecified lung (3) Pneumonia Code(s): J18.9 - PNEUMONIA, UNSPECIFIED ORGANISM (4) Urinary tract infection Code(s): N39.0 - URINARY TRACT INFECTION, SITE NOT SPECIFIED Qualifiers: Urinary tract infection type: site unspecified Hematuria presence: without hematuria Qualified Code(s): N39.0 - Urinary tract infection, site not specified (5) Breast cancer metastasized to brain Code(s): C50.919 - MALIGNANT NEOPLASM OF UNSP SITE OF UNSPECIFIED FEMALE BREAST ; C79.31 - SECONDARY MALIGNANT NEOPLASM OF BRAIN Qualifiers: Laterality: unspecified laterality Qualified Code(s): C50.919 - Malignant neoplasm of unspecified site of unspecified female breast; C79.31 - Secondary malignant neoplasm of brain; C79.31 - Secondary malignant neoplasm of brain; C79.31 - Secondary malignant neoplasm of brain; C79.31 - Secondary malignant neoplasm of brain (6) Thrombocytopenia Code(s): D69.6 - THROMBOCYTOPENIA, UNSPECIFIED (7) Anemia Code(s): D64.9 - ANEMIA, UNSPECIFIED Qualifiers: Anemia type: bone marrow failure Bone marrow failure anemia type: pancytopenia, antineoplastic chemotherapy-induced Qualified Code(s): D61.810 - Antineoplastic chemotherapy induced pancytopenia; T45.1X5A - Adverse effect of antineoplastic and immunosuppressive drugs, initial encounter; T45.1X5A - Adverse effect of antineoplastic and immunosuppressive drugs, initial encounter Assessment/Plan 1. Suspicious mobile LA echodensity, etiology unclear 2. Enterococcal bacteremia/sepsis suspect port infection 3. Multilobar PNA 4. Breast CA with metastasis to brain and lung post lumpectomy, gamma knife and radiation and chemotherapy 5. Anemia, thrombocytopenia referable to sepsis PLAN: 1. Transthoracic echocardiography images reviewed personally. After conferring with family, I feel that transesophageal echocardiography would be of little benefit as she is not candidate for CTS, will however repeat TTE, ID input appreciated. Amp/Gent coverage via PICC or tunnelled catheter per C&S 2. Oncology input appreciated. Port has been removed and cath tip culture pending. Repeat surveillance cultures 3. Plan of care relayed to family
[2017-11-01] MEDS: oxyCODONE HCL 5 MG TABLET PO PRN (19:26)
[2017-11-01] MEDS: CEFTRIAXONE IN IS-OSM DEXTROSE 2 GM/50 ML BAG IVPB SCH (22:45)
[2017-11-02] MEDS: AMPICILLIN - 2 GM in SODIUM CHLORIDE 100 ML IVPB SCH ×6 (02:50→21:10)
[2017-11-02] MEDS: MAG HYDROX/ALH/SMC/DPHA/LIDO 240 ML MOUTHWASH MM SCH ×3 (06:16→17:45)
[2017-11-02] MEDS: DOCUSATE SODIUM 100 MG CAPSULE (FP) PO SCH ×3 (06:17→21:12)
[2017-11-02] MEDS: ALBUTEROL SO4 2.5/IPRATROPIUM 0.5 INH SOL 3 ML VIAL.NEB. NEB SCH ×4 (07:25→20:58)
[2017-11-02 09:11] LABS: HEMOGLOBIN 7.3 GM/dL (10.7-15.3); MCH 32.1 pg (25.7-33.7); MCHC 33.2 g/dl (32.0-36.0); MEAN CELL VOLUME 96.7 fl (80-96); MEAN PLT VOLUME 8.8 fl (7.5-11.1); PLATELET COUNT 96 K/MM3 (134-434); RBC 2.27 M/mm3 (3.60-5.2); RDW 19.1 % (11.6-15.6); WHITE BLOOD COUNT 8.3 K/mm3 (4.0-10.0)
[2017-11-02 09:33] LABS: ALBUMIN 1.5 g/dl (3.4-5.0); ANION GAP 4 (8-16); BLOOD UREA NITROGEN 10 mg/dL (7-18); CALCIUM 7.9 mg/dL (8.5-10.1); CHLORIDE 101 mmol/L (98-107); CO2 37 mmol/L (21-32); GLUCOSE,RANDOM 90 mg/dL (74-106); POTASSIUM 3.6 mmol/L (3.5-5.1); SGPT/ALT 14 U/L (12-78); SODIUM 142 mmol/L (136-145)
[2017-11-02 09:35] LABS: ALK PHOS 90 U/L (45-117); BILIRUBIN,TOTAL 0.4 mg/dL (0.2-1.0); CREATININE 0.3 mg/dL (0.55-1.02); SGOT/AST 14 U/L (15-37); TOT PROT 4.7 g/dl (6.4-8.2)
[2017-11-02] MEDS: RANITIDINE HCL 150 MG TABLET (FP) PO SCH (10:02)
[2017-11-02] MEDS: LACTOBACILLUS ACIDOPHILUS 1 EACH TAB (FP) PO SCH (10:02)
[2017-11-02] MEDS: CEFTRIAXONE IN IS-OSM DEXTROSE 2 GM/50 ML BAG IVPB SCH ×2 (10:02→21:52)
[2017-11-02] MEDS: FLUCONAZOLE 100 MG TABLET (UD) PO SCH (10:02)
[2017-11-02] MEDS: POLYETHYLENE GLYCOL 3350 119 GM BTL PO SCH (10:02)
--- NOTE | 2017-11-02 11:31 | PN ---
Progress Note (short form) - Note Progress Note: Ortho Pt seen and examined. feeling much better decr pain, incr rom, nvi a/p PT wbat nothing further to do will follow as needed d/w Dr. Rolon
--- NOTE | 2017-11-02 12:06 | PN ---
Progress Note, Physician History of Present Illness: Awake, lethargic No c/o pain at rest Afebrile WBC 8.3 - Current Medication List Current Medications: Active Medications Acetaminophen (Tylenol -) 650 mg PO Q6H PRN PRN Reason: FEVER Albuterol Sulfate (Ventolin 0.083% Nebulizer Soln -) 1 amp NEB Q4H PRN PRN Reason: SHORT OF BREATH/WHEEZING Last Admin: 10/31/17 08:20 Dose: 1 amp Albuterol/Ipratropium (Duoneb -) 1 amp NEB RQID [facility] Last Admin: 11/02/17 11:05 Dose: 1 amp Artificial Tears (Artificial Tears) 1 drop OU BID PRN PRN Reason: DRY EYES Docusate Sodium (Colace -) 100 mg PO TID [facility] Last Admin: 11/02/17 06:17 Dose: 100 mg Fluconazole (Diflucan -) 100 mg PO DAILY [facility] Last Admin: 11/02/17 10:02 Dose: 100 mg IV Flush (Picc Line Flush) 8 ml IVPUSH PRN PRN PRN Reason: Protocol Ampicillin Sodium 2 gm/ Sodium (Chloride) 100 mls @ 200 mls/hr IVPB Q4H-IV [facility] Last Admin: 11/02/17 10:02 Dose: Not Given CEFTRIAXONE IN IS-OSM DEXTROSE (Ceftriaxone 2 Gm-D5w Bag) 2 gm in 50 mls @ 100 mls/hr IVPB BID [facility] Last Admin: 11/02/17 10:02 Dose: Not Given Lactobacillus Acidophilus (Bacid -) 1 tab PO DAILY [facility] Last Admin: 11/02/17 10:02 Dose: 1 tab Lidocaine/Aluminum/Magnesium/Simeth (Magic Mouthwash *Sjr Formula* -) 5 ml MM Q6HPO [facility] Last Admin: 11/02/17 06:16 Dose: 5 ml Melatonin (Melatonin) 5 mg PO HS PRN PRN Reason: INSOMNIA Morphine Sulfate (Morphine Sulfate) 2 mg IVPB Q6H PRN PRN Reason: PAIN LEVEL 7 - 10 Ondansetron HCl (Zofran Odt -) 4 mg SL Q8H PRN PRN Reason: NAUSEA AND/OR VOMITING Oxycodone HCl (Roxicodone -) 5 mg PO Q6H PRN PRN Reason: PAIN LEVEL 7 - 10 Last Admin: 11/01/17 19:26 Dose: 5 mg Polyethylene Glycol (Miralax (For Daily Use) -) 17 gm PO DAILY [facility] Last Admin: 11/02/17 10:02 Dose: 17 gm Ranitidine HCl (Zantac -) 150 mg PO DAILY [facility] Last Admin: 11/02/17 10:02 Dose: 150 mg Senna (Senna -) 2 tab PO HS PRN PRN Reason: CONSTIPATION - Objective Vital Signs: Vital Signs Temperature 98.3 F 11/02/17 09:00 Pulse Rate 110 H 11/02/17 09:00 Respiratory Rate 18 11/02/17 09:00 Blood Pressure 101/72 11/02/17 09:00 O2 Sat by Pulse Oximetry (%) 95 11/02/17 09:00 Constitutional: Yes: No Distress, Obese Cardiovascular: Yes: Regular Rate and Rhythm, S1, S2 Respiratory: Yes: Diminished Gastrointestinal: Yes: Normal Bowel Sounds, Soft, Abdomen, Obese. 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
--- NOTE | 2017-11-02 13:04 | PN ---
Progress Note, Physician History of Present Illness: Remains afebrile, feels weak, positive blood cultures after port removal shows bacteremia persists despite appropriate abx coverage. Unsuccessful PICC placement and blood draws. - Current Medication List Current Medications: Active Medications Acetaminophen (Tylenol -) 650 mg PO Q6H PRN PRN Reason: FEVER Albuterol Sulfate (Ventolin 0.083% Nebulizer Soln -) 1 amp NEB Q4H PRN PRN Reason: SHORT OF BREATH/WHEEZING Last Admin: 10/31/17 08:20 Dose: 1 amp Albuterol/Ipratropium (Duoneb -) 1 amp NEB RQID [facility] Last Admin: 11/02/17 11:05 Dose: 1 amp Artificial Tears (Artificial Tears) 1 drop OU BID PRN PRN Reason: DRY EYES Docusate Sodium (Colace -) 100 mg PO TID [facility] Last Admin: 11/02/17 06:17 Dose: 100 mg Fluconazole (Diflucan -) 100 mg PO DAILY [facility] Last Admin: 11/02/17 10:02 Dose: 100 mg IV Flush (Picc Line Flush) 8 ml IVPUSH PRN PRN PRN Reason: Protocol Ampicillin Sodium 2 gm/ Sodium (Chloride) 100 mls @ 200 mls/hr IVPB Q4H-IV [facility] Last Admin: 11/02/17 10:02 Dose: Not Given CEFTRIAXONE IN IS-OSM DEXTROSE (Ceftriaxone 2 Gm-D5w Bag) 2 gm in 50 mls @ 100 mls/hr IVPB BID [facility] Last Admin: 11/02/17 10:02 Dose: Not Given Lactobacillus Acidophilus (Bacid -) 1 tab PO DAILY [facility] Last Admin: 11/02/17 10:02 Dose: 1 tab Lidocaine/Aluminum/Magnesium/Simeth (Magic Mouthwash *Sjr Formula* -) 5 ml MM Q6HPO [facility] Last Admin: 11/02/17 06:16 Dose: 5 ml Melatonin (Melatonin) 5 mg PO HS PRN PRN Reason: INSOMNIA Morphine Sulfate (Morphine Sulfate) 2 mg IVPB Q6H PRN PRN Reason: PAIN LEVEL 7 - 10 Ondansetron HCl (Zofran Odt -) 4 mg SL Q8H PRN PRN Reason: NAUSEA AND/OR VOMITING Oxycodone HCl (Roxicodone -) 5 mg PO Q6H PRN PRN Reason: PAIN LEVEL 7 - 10 Last Admin: 11/01/17 19:26 Dose: 5 mg Polyethylene Glycol (Miralax (For Daily Use) -) 17 gm PO DAILY [facility] Last Admin: 11/02/17 10:02 Dose: 17 gm Ranitidine HCl (Zantac -) 150 mg PO DAILY [facility] Last Admin: 11/02/17 10:02 Dose: 150 mg Senna (Senna -) 2 tab PO HS PRN PRN Reason: CONSTIPATION - Objective Vital Signs: Vital Signs Temperature 98.3 F 11/02/17 09:00 Pulse Rate 110 H 11/02/17 09:00 Respiratory Rate 18 11/02/17 09:00 Blood Pressure 101/72 11/02/17 09:00 O2 Sat by Pulse Oximetry (%) 95 11/02/17 09:00 Constitutional: Yes: No Distress, Calm Neck: Yes: Supple Cardiovascular: Yes: Pulse Irregular Respiratory: Yes: Regular, Diminished Gastrointestinal: Yes: Normal Bowel Sounds, Soft, Abdomen, Obese Edema: Yes Edema: LUE: 2+, RUE: 2+ Labs: CBC, BMP 11/02/17 08:55 11/02/17 08:55 INR, PTT INR 1.24 (0.82-1.09) H 10/28/17 08:20 Problem List - Problems (1) Bacteremia Code(s): R78.81 - BACTEREMIA (2) 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 Code(s): C50.919 - MALIGNANT NEOPLASM OF UNSP SITE OF UNSPECIFIED FEMALE BREAST ; C78.00 - SECONDARY MALIGNANT NEOPLASM OF UNSPECIFIED LUNG Qualifiers: Laterality: right Qualified Code(s): C50.911 - Malignant neoplasm of unspecified site of right female breast; C78.00 - Secondary malignant neoplasm of unspecified lung; C78.00 - Secondary malignant neoplasm of unspecified lung; C78.00 - Secondary malignant neoplasm of unspecified lung; C78.00 - Secondary malignant neoplasm of unspecified lung (3) Pneumonia Code(s): J18.9 - PNEUMONIA, UNSPECIFIED ORGANISM (4) Urinary tract infection Code(s): N39.0 - URINARY TRACT INFECTION, SITE NOT SPECIFIED Qualifiers: Urinary tract infection type: site unspecified Hematuria presence: without hematuria Qualified Code(s): N39.0 - Urinary tract infection, site not specified (5) Breast cancer metastasized to brain Code(s): C50.919 - MALIGNANT NEOPLASM OF UNSP SITE OF UNSPECIFIED FEMALE BREAST ; C79.31 - SECONDARY MALIGNANT NEOPLASM OF BRAIN Qualifiers: Laterality: unspecified laterality Qualified Code(s): C50.919 - Malignant neoplasm of unspecified site of unspecified female breast; C79.31 - Secondary malignant neoplasm of brain; C79.31 - Secondary malignant neoplasm of brain; C79.31 - Secondary malignant neoplasm of brain; C79.31 - Secondary malignant neoplasm of brain (6) Thrombocytopenia Code(s): D69.6 - THROMBOCYTOPENIA, UNSPECIFIED (7) Anemia Code(s): D64.9 - ANEMIA, UNSPECIFIED Qualifiers: Anemia type: bone marrow failure Bone marrow failure anemia type: pancytopenia, antineoplastic chemotherapy-induced Qualified Code(s): D61.810 - Antineoplastic chemotherapy induced pancytopenia; T45.1X5A - Adverse effect of antineoplastic and immunosuppressive drugs, initial encounter; T45.1X5A - Adverse effect of antineoplastic and immunosuppressive drugs, initial encounter Assessment/Plan 1. Suspicious mobile LA echodensity, etiology unclear 2. Enterococcal bacteremia/sepsis suspect port infection 3. Multilobar PNA 4. Breast CA with metastasis to brain and lung post lumpectomy, gamma knife and radiation and chemotherapy 5. Anemia, thrombocytopenia referable to sepsis PLAN: 1. Transthoracic echocardiography images reviewed personally. After conferring with family, I feel that transesophageal echocardiography would be of little benefit as she is not candidate for CTS, will however repeat TTE, ID input appreciated. Amp/ceftriaxone coverage via PICC or tunnelled catheter per C&S 2. Oncology input appreciated. Port has been removed and cath tip culture pending. Repeat surveillance cultures 3. Plan of care relayed to family
--- NOTE | 2017-11-02 13:30 | PN ---
Physical Exam: SUBJECTIVE: Patient seen and examined at the bedside. Family is asking for patient to be transferred to [place]. Family is currently working with outside physician to help patient be transferred to [place]. OBJECTIVE: Patient for TLC today, has poor venous access due to edema Vital Signs Period Temp Pulse Resp BP Sys/Blum Pulse Ox Last 24 Hr 98.0 F-98.4 F 101-115 18-20 101-112/56-84 95-98 GENERAL: The patient is awake, alert, and fully oriented, in no acute distress. HEAD: Normal with no signs of trauma. EYES: PERRL, extraocular movements intact, sclera anicteric, conjunctiva clear. No ptosis. ENT: Ears normal, nares patent, oropharynx clear without exudates, moist mucous membranes. NECK: Trachea midline, full range of motion, supple. LUNGS: Breath sounds equal, clear to auscultation bilaterally, no wheezes, no crackles, no accessory muscle use. HEART: Regular rate and rhythm, ABDOMEN: Soft, nontender, nondistended, normoactive bowel sounds, no guarding, no rebound, no hepatosplenomegaly, no masses. EXTREMITIES: no edema. bilateral upper extremities with edema, no DVT NEUROLOGICAL: Normal speech, gait not observed. PSYCH: Normal mood, normal affect. SKIN: Warm, dry, normal turgor, no rashes or lesions noted Laboratory Results - last 24 hr 11/02/17 11/02/17 08:55 08:55 WBC 8.3 RBC 2.27 L Hgb 7.3 L Hct 22.0 L MCV 96.7 H MCH 32.1 MCHC 33.2 RDW 19.1 H Plt Count 96 L MPV 8.8 Sodium 142 Potassium 3.6 Chloride 101 Carbon Dioxide 37 H Anion Gap 4 L BUN 10 Creatinine 0.3 L Creat Clearance w eGFR > 60 Random Glucose 90 Calcium 7.9 L Total Bilirubin 0.4 AST 14 L ALT 14 Alkaline Phosphatase 90 Total Protein 4.7 L Albumin 1.5 L Active Medications Generic Name Dose Route Start Last Admin Trade Name Freq PRN Reason Stop Dose Admin Acetaminophen 650 mg 10/31/17 08:03 Tylenol - PO Q6H PRN FEVER Albuterol Sulfate 1 amp 10/31/17 08:03 10/31/17 08:20 Ventolin 0.083% Nebulizer Soln - NEB 1 amp Q4H PRN Administration SHORT OF BREATH/WHEEZING Albuterol/Ipratropium 1 amp 10/31/17 12:00 11/02/17 11:05 Duoneb - NEB 1 amp RQID [facility] Administration Artificial Tears 1 drop 10/31/17 08:03 Artificial Tears OU BID PRN DRY EYES Docusate Sodium 100 mg 11/01/17 14:00 11/02/17 06:17 Colace - PO 100 mg TID [facility] Administration Fluconazole 100 mg 10/31/17 10:00 11/02/17 10:02 Diflucan - PO 100 mg DAILY [facility] Administration IV Flush 8 ml 10/29/17 12:06 Picc Line Flush IVPUSH PRN PRN Protocol Ampicillin Sodium 2 gm/ Sodium 100 mls @ 200 mls/hr 10/31/17 10:30 11/02/17 10:02 Chloride IVPB Not Given Q4H-IV [facility] CEFTRIAXONE IN IS-OSM DEXTROSE 2 gm in 50 mls @ 100 mls/hr 11/01/17 22:30 10:02 Ceftriaxone 2 Gm-D5w Bag IVPB Not Given BID [facility] Lactobacillus Acidophilus 1 tab 10/31/17 10:00 11/02/17 10:02 Bacid - PO 1 tab DAILY [facility] Administration Lidocaine/Aluminum/Magnesium/Simeth 5 ml 10/31/17 12:00 11/02/17 13:22 Magic Mouthwash *Sjr Formula* - MM 5 ml Q6HPO [facility] Administration Melatonin 5 mg 10/31/17 22:00 Melatonin PO HS PRN INSOMNIA Ondansetron HCl 4 mg 10/31/17 08:03 Zofran Odt - SL Q8H PRN NAUSEA AND/OR VOMITING Oxycodone HCl 5 mg 10/31/17 08:03 11/01/17 19:26 Roxicodone - PO 5 mg Q6H PRN Administration PAIN LEVEL 7 - 10 Polyethylene Glycol 17 gm 11/01/17 12:30 11/02/17 10:02 Miralax (For Daily Use) - PO 17 gm DAILY [facility] Administration Ranitidine HCl 150 mg 10/31/17 10:00 11/02/17 10:02 Zantac - PO 150 mg DAILY [facility] Administration Senna 2 tab 11/01/17 12:19 Senna - PO HS PRN CONSTIPATION ASSESSMENT/PLAN: Patient is a 72 year old female with a significant past medical history of breast cancer with mets to the lung and brain, seizure disorder, Von Willebrand disease, gastric banding and appendectomy. She presents to the ED on 10/23/2017 with worsening dyspnea, cough, and generalized weakness. She was found to have sepsis on admission. ID: Sepsis, Bacteremia + blood cultures with enterococcal bacteremia Pt had port removed and catheter tip removed and sent to lab for culture Repeat blood cultures pending TLC placed today for difficulty with access On Ampicillin, Ceftriaxone Repeat echo today, previous echo with suspicious mobile LA echodensity ID following Vascular Upper ext edema Left > right, ruled out for DVT Heme/Oncology: Metastatic breast cancer Recent chemo, has outpt oncologist Thrombocytopenia: Monitor with daily labs Anemia, like due to hematological disease Repeat CBC in a.m Right hip pain Improved, PT eval F.E.N. Fluids: PO adequate Electrolytes: monitor Nutrition: regular diet Prophylaxis Lovenox 40mg with close watch on platelets, benefits of Lovenox at this time outweighs risks GI; deferred
[2017-11-02] MEDS ORDERED: PT OWN MED DRAWER 7, Y5N ONE ×2 (17:41→20:35)
[2017-11-02] MEDS: oxyCODONE HCL 5 MG TABLET PO PRN (18:24)
[2017-11-02] MEDS: TRIPLE LUMEN FLUSH 4 ML ML IVPUSH PRN (21:11)
[2017-11-02] MEDS: ENOXAPARIN NA (PORCINE) 40 MG/0.4 ML DISP.SYRIN SQ SCH (21:11)
[2017-11-03] MEDS: MAG HYDROX/ALH/SMC/DPHA/LIDO 240 ML MOUTHWASH MM SCH ×5 (00:04→23:11)
[2017-11-03] MEDS: AMPICILLIN - 2 GM in SODIUM CHLORIDE 100 ML IVPB SCH ×6 (02:11→23:11)
[2017-11-03] MEDS: DOCUSATE SODIUM 100 MG CAPSULE (FP) PO SCH ×3 (06:06→21:47)
[2017-11-03] MEDS: TRIPLE LUMEN FLUSH 4 ML ML IVPUSH PRN (07:14)
[2017-11-03 07:59] LABS: BASO % 0.6 % (0-2.0); EOS % 0.1 % (0-4.5); HEMATOCRIT 19.1 % (32.4-45.2); LYMPH % 10.6 % (8-40); MCH 32.4 pg (25.7-33.7); MEAN CELL VOLUME 98.2 fl (80-96); MEAN PLT VOLUME 8.4 fl (7.5-11.1); MONO % 5.8 % (3.8-10.2); NEUT % 82.9 % (42.8-82.8); PLATELET COUNT 86 K/MM3 (134-434); RBC 1.95 M/mm3 (3.60-5.2); RDW 19.9 % (11.6-15.6); WHITE BLOOD COUNT 5.9 K/mm3 (4.0-10.0)
[2017-11-03 08:09] LABS: CHLORIDE 100 mmol/L (98-107); POTASSIUM 3.5 mmol/L (3.5-5.1); SODIUM 142 mmol/L (136-145)
[2017-11-03] MEDS: ALBUTEROL SO4 2.5/IPRATROPIUM 0.5 INH SOL 3 ML VIAL.NEB. NEB SCH ×4 (08:18→20:25)
[2017-11-03 08:36] LABS: ALBUMIN 1.4 g/dl (3.4-5.0); ALK PHOS 85 U/L (45-117); ANION GAP 5 (8-16); BILIRUBIN,TOTAL 0.4 mg/dL (0.2-1.0); BLOOD UREA NITROGEN 8 mg/dL (7-18); CALCIUM 7.9 mg/dL (8.5-10.1); CO2 37 mmol/L (21-32); CREATININE 0.3 mg/dL (0.55-1.02); GLUCOSE,RANDOM 71 mg/dL (74-106); MAGNESIUM 1.8 mg/dL (1.8-2.4); SGOT/AST 15 U/L (15-37); SGPT/ALT 12 U/L (12-78); TOT PROT 4.6 g/dl (6.4-8.2)
[2017-11-03 08:50] LABS: HEMOGLOBIN 6.3 GM/dL (10.7-15.3)
[2017-11-03] MEDS ORDERED: PT OWN MED DRAWER 7, Y5N ONE ×4 (10:38→20:57)
[2017-11-03] MEDS: FLUCONAZOLE 100 MG TABLET (UD) PO SCH (10:54)
[2017-11-03] MEDS: RANITIDINE HCL 150 MG TABLET (FP) PO SCH (10:54)
[2017-11-03] MEDS: LACTOBACILLUS ACIDOPHILUS 1 EACH TAB (FP) PO SCH (10:54)
[2017-11-03] MEDS: ENOXAPARIN NA (PORCINE) 40 MG/0.4 ML DISP.SYRIN SQ SCH ×2 (10:54→11:24)
[2017-11-03] MEDS: POLYETHYLENE GLYCOL 3350 119 GM BTL PO SCH (10:55)
--- NOTE | 2017-11-03 12:08 | HP ---
CHIEF COMPLAINT: PCP: HISTORY OF PRESENT ILLNESS: ER course was notable for: (1) (2) (3) Recent Travel: PAST MEDICAL HISTORY: PAST SURGICAL HISTORY: Social History: Smoking: Alcohol: Drugs: Family History: Allergies No Known Drug Allergies Allergy (Verified 09/04/15 11:26) Platlets needs premeds Chills platelets Adverse Reaction (Uncoded 08/15/15 07:05) Chills Needs premeds HOME MEDICATIONS: Home Medications Medication Instructions Recorded Benzonatate [Tessalon Pearls -] 100 mg PO TID 10/23/17 Chemo Theapy Diluent No.1/Pf 1 ml IT ASDIR 10/23/17 [Elliotts B Solution Ampule] Nystatin Oral Suspension - 500,000 units PO TID 10/23/17 [Nystatin Oral Susp 043644 Units/5 ML -] Sulfamethoxazole/Trimethoprim 1 tab PO BID 10/23/17 [Bactrim Ds -] REVIEW OF SYSTEMS CONSTITUTIONAL: Absent: fever, chills, diaphoresis, generalized weakness, malaise, loss of appetite, weight change HEENT: Absent: rhinorrhea, nasal congestion, throat pain, throat swelling, difficulty swallowing, mouth swelling, ear pain, eye pain, visual changes CARDIOVASCULAR: Absent: chest pain, syncope, palpitations, irregular heart rate, lightheadedness , peripheral edema RESPIRATORY: Absent: cough, shortness of breath, dyspnea with exertion, orthopnea, wheezing, stridor, hemoptysis GASTROINTESTINAL: Absent: abdominal pain, abdominal distension, nausea, vomiting, diarrhea, constipation, melena, hematochezia GENITOURINARY: Absent: dysuria, frequency, urgency, hesitancy, hematuria, flank pain, genital pain MUSCULOSKELETAL: Absent: myalgia, arthralgia, joint swelling, back pain, neck pain SKIN: Absent: rash, itching, pallor HEMATOLOGIC/IMMUNOLOGIC: Absent: easy bleeding, easy bruising, lymphadenopathy, frequent infections ENDOCRINE: Absent: unexplained weight gain, unexplained weight loss, heat intolerance, cold intolerance NEUROLOGIC: Absent: headache, focal weakness or paresthesias, dizziness, unsteady gait, seizure, mental status changes, bladder or bowel incontinence PSYCHIATRIC: Absent: anxiety, depression, suicidal or homicidal ideation, hallucinations. PHYSICAL EXAMINATION Vital Signs - 24 hr 11/02/17 11/02/17 11/02/17 15:22 19:21 20:50 Temperature 98.0 F 99.0 F 98.8 F Pulse Rate 100 H 103 H Respiratory 20 20 20 Rate Blood Pressure 99/63 113/70 115/82 O2 Sat by Pulse Oximetry (%) 11/02/17 11/03/17 11/03/17 21:00 01:26 06:04 Temperature 98.6 F 97.8 F Pulse Rate 104 H Respiratory 20 20 Rate Blood Pressure 115/79 O2 Sat by Pulse 98 Oximetry (%) GENERAL: Awake, alert, and fully oriented, in no acute distress. HEAD: Normal with no signs of trauma. EYES: Pupils equal, round and reactive to light, extraocular movements intact, sclera anicteric, conjunctiva clear. No lid lag. EARS, NOSE, THROAT: Ears normal, nares patent, oropharynx clear without exudates. Moist mucous membranes. NECK: Normal range of motion, supple without lymphadenopathy, JVD, or masses. LUNGS: Breath sounds equal, clear to auscultation bilaterally. No wheezes, and no crackles. No accessory muscle use. HEART: Regular rate and rhythm, normal S1 and S2 without murmur, rub or gallop. ABDOMEN: Soft, nontender, not distended, normoactive bowel sounds, no guarding, no rebound, no masses. No hepatomegaly or splenomegaly. MUSCULOSKELETAL: Normal range of motion at all joints. No bony deformities or tenderness. No CVA tenderness. UPPER EXTREMITIES: 2+ pulses, warm, well-perfused. No cyanosis. No clubbing. No peripheral edema. LOWER EXTREMITIES: 2+ pulses, warm, well-perfused. No calf tenderness. No peripheral edema. NEUROLOGICAL: Cranial nerves II-XII intact. Normal speech. Normal gait. PSYCHIATRIC: Cooperative. Good eye contact. Appropriate mood and affect. SKIN: Warm, dry, normal turgor, no rashes or lesions noted, normal capillary refill. Laboratory Results - last 24 hr 11/03/17 11/03/17 11/03/17 06:00 06:00 09:20 WBC 5.9 RBC 1.95 L Hgb 6.3 L* D Hct 19.1 L MCV 98.2 H MCH 32.4 MCHC 33.0 RDW 19.9 H Plt Count 86 L MPV 8.4 Neutrophils % 82.9 H Lymphocytes % 10.6 D Monocytes % 5.8 Eosinophils % 0.1 Basophils % 0.6 D Sodium 142 Potassium 3.5 Chloride 100 Carbon Dioxide 37 H Anion Gap 5 L BUN 8 Creatinine 0.3 L Creat Clearance w eGFR > 60 Random Glucose 71 L Calcium 7.9 L Magnesium 1.8 Total Bilirubin 0.4 AST 15 ALT 12 Alkaline Phosphatase 85 Total Protein 4.6 L Albumin 1.4 L Blood Type O NEGATIVE Antibody Screen Negative Crossmatch See Detail ASSESSMENT/PLAN:
--- NOTE | 2017-11-03 12:09 | PN ---
Physical Exam: SUBJECTIVE: Patient seen and examined at the bedside. States she feels good today, denies pain or shortness of breath OBJECTIVE: hmg/hct dipped today: will transfuse 2 units of prbc with Lasix in between Hold Lovenox for now, for anemia and low platelets, SCDs ordered Discussed POC with Dr. Burciaga, patient's private oncologist. Patient family requesting transfer to [facility], they state they have arranged for an accepting physician. Will likely transfer tomorrow after prbc and stable cbc Vital Signs Period Temp Pulse Resp BP Sys/Blum Pulse Ox Last 24 Hr 97.8 F-99.0 F 100-104 20-20 99-115/63-82 98 GENERAL: The patient is awake, alert, and fully oriented, in no acute distress. HEAD: Normal with no signs of trauma. EYES: PERRL, extraocular movements intact, sclera anicteric, conjunctiva clear. No ptosis. ENT: Ears normal, nares patent, oropharynx clear without exudates, moist mucous membranes. NECK: Trachea midline, full range of motion, supple. LUNGS: Breath sounds equal, clear to auscultation bilaterally HEART: Regular rate and rhythm ABDOMEN: Soft, nontender, nondistended, normoactive bowel sounds, no guarding, no rebound, no hepatosplenomegaly, no masses. EXTREMITIES:bilateral upper ext edema left >right: negative for DVT NEUROLOGICAL: Normal speech, gait not observed. Laboratory Results - last 24 hr 11/03/17 11/03/17 11/03/17 06:00 06:00 09:20 WBC 5.9 RBC 1.95 L Hgb 6.3 L* D Hct 19.1 L MCV 98.2 H MCH 32.4 MCHC 33.0 RDW 19.9 H Plt Count 86 L MPV 8.4 Neutrophils % 82.9 H Lymphocytes % 10.6 D Monocytes % 5.8 Eosinophils % 0.1 Basophils % 0.6 D Sodium 142 Potassium 3.5 Chloride 100 Carbon Dioxide 37 H Anion Gap 5 L BUN 8 Creatinine 0.3 L Creat Clearance w eGFR > 60 Random Glucose 71 L Calcium 7.9 L Magnesium 1.8 Total Bilirubin 0.4 AST 15 ALT 12 Alkaline Phosphatase 85 Total Protein 4.6 L Albumin 1.4 L Blood Type O NEGATIVE Antibody Screen Negative Crossmatch See Detail Active Medications Generic Name Dose Route Start Last Admin Trade Name Freq PRN Reason Stop Dose Admin Acetaminophen 650 mg 10/31/17 08:03 Tylenol - PO Q6H PRN FEVER Albuterol Sulfate 1 amp 10/31/17 08:03 10/31/17 08:20 Ventolin 0.083% Nebulizer Soln - NEB 1 amp Q4H PRN Administration SHORT OF BREATH/WHEEZING Albuterol/Ipratropium 1 amp 10/31/17 12:00 11/03/17 08:18 Duoneb - NEB 1 amp RQID [facility] Administration Artificial Tears 1 drop 10/31/17 08:03 Artificial Tears OU BID PRN DRY EYES Docusate Sodium 100 mg 11/01/17 14:00 11/03/17 06:06 Colace - PO 100 mg TID [facility] Administration Enoxaparin Sodium 40 mg 11/02/17 21:00 11/03/17 11:24 Lovenox - SQ Not Given DAILY [facility] Fluconazole 100 mg 10/31/17 10:00 11/03/17 10:54 Diflucan - PO 100 mg DAILY [facility] Administration IV Flush 8 ml 10/29/17 12:06 Picc Line Flush IVPUSH PRN PRN Protocol IV Flush 4 ml 11/02/17 16:45 11/03/17 07:14 Triple Lumen Flush IVPUSH 4 ml PRN PRN Administration Protocol Ampicillin Sodium 2 gm/ Sodium 100 mls @ 200 mls/hr 10/31/17 10:30 11/03/17 10:54 Chloride IVPB 200 mls/hr Q4H-IV [facility] Administration CEFTRIAXONE IN IS-OSM DEXTROSE 2 gm in 50 mls @ 100 mls/hr 11/01/17 22:30 21:52 Ceftriaxone 2 Gm-D5w Bag IVPB 100 mls/hr BID [facility] Administration Lactobacillus Acidophilus 1 tab 10/31/17 10:00 11/03/17 10:54 Bacid - PO 1 tab DAILY [facility] Administration Lidocaine/Aluminum/Magnesium/Simeth 5 ml 10/31/17 12:00 11/03/17 06:06 Magic Mouthwash *Sjr Formula* - MM 5 ml Q6HPO [facility] Administration Melatonin 5 mg 10/31/17 22:00 Melatonin PO HS PRN INSOMNIA Ondansetron HCl 4 mg 10/31/17 08:03 Zofran Odt - SL Q8H PRN NAUSEA AND/OR VOMITING Polyethylene Glycol 17 gm 11/01/17 12:30 11/03/17 10:55 Miralax (For Daily Use) - PO 17 gm DAILY [facility] Administration Ranitidine HCl 150 mg 10/31/17 10:00 11/03/17 10:54 Zantac - PO 150 mg DAILY [facility] Administration Senna 2 tab 11/01/17 12:19 Senna - PO HS PRN CONSTIPATION ASSESSMENT/PLAN: Patient is a 72 year old female with a significant past medical history of breast cancer with mets to the lung and brain, seizure disorder, Von Willebrand disease, gastric banding and appendectomy. She presents to the ED on 10/23/2017 with worsening dyspnea, cough, and generalized weakness. She was found to have sepsis on admission. Patient initially had mediport on admission which was removed and the catheter tip sent to lab for culture. She now has a TLC that was placed in IR yesterday as she has poor venous access. On admission CT showed bilateral infiltrated suspicious for pneumonia. Echocardiogram 11/02/2017 shows mass in left atrium: clot vs. vegetation vs. tumor On exam, patient is in no acute distress. She is tolerating room air, and denies any chills or malaise. She reports some coughing but overall improving since yesterday. ID: Sepsis, Bacteremia + blood cultures with enterococcal bacteremia Pt had port removed and catheter tip removed and sent to lab for culture Repeat blood cultures pending, but ngtd thus far TLC placed yesterday for difficulty with access secondary to edema On Ampicillin, Ceftriaxone as per ID Repeat echo unchanged from previous echo both with suspicious mobile LA echodensity ID and Cardiology following Vascular: Upper ext edema Left > right, ruled out for DVT Lasix to be given today, discussed with cardiology Heme/Oncology: Metastatic breast cancer Recent chemo, has outpt oncologist (Dr. Burciaga) who as been updated on POC Thrombocytopenia: Currently @ 86 platelets Monitor with daily labs, bleeding precautions Goal is to maintain platelets at 80 or greater Anemia, like due to hematological disease 2 units of prbc today for hmg/hct 6.10/30. Will get Lasix in between the prbc Hold Lovenox due to severe anemia Unsure if mass is a clot vs. vegetation vs. tumor High risk for bleeding if a heparin drip or Lovenox BID is started Patient also has thrombocytopenia No chemical prophylaxis, mechanical prophylaxis only Goal is to maintain platelets at 80 or greater Muscular/Skeletal: Right hip pain Improved, PT eval F.E.N. Fluids: PO adequate Electrolytes: monitor Nutrition: regular diet Prophylaxis DVT: Lovenox 40mg on hold due to anemia and thrombocytopenia, SCDS ordered GI; deferred Disposition: full code. Patient's family requesting patient to be transferred to [facility] tomorrow 11/04/2017 for continued care. Visit type - Emergency Visit Emergency Visit: Yes ED Registration Date: 10/23/17 Care time: The patient presented to the Emergency Department on the above date and was hospitalized for further evaluation of their emergent condition. - New Patient This patient is new to me today: No - Critical Care Critical Care patient: No - Discharge Referral Referred to [facility] No
--- NOTE | 2017-11-03 12:48 | PN ---
Progress Note, Physician Chief Complaint: Events noted Transthoracic echocardiography limited study reviewed History of Present Illness: Patient was seen and examined. Awake and alert. Chart was reviewed Denies chest pain, SOB or palpitation Await transfusion PRBC for profound anemia - Current Medication List Current Medications: Active Medications Acetaminophen (Tylenol -) 650 mg PO Q6H PRN PRN Reason: FEVER Albuterol Sulfate (Ventolin 0.083% Nebulizer Soln -) 1 amp NEB Q4H PRN PRN Reason: SHORT OF BREATH/WHEEZING Last Admin: 10/31/17 08:20 Dose: 1 amp Albuterol/Ipratropium (Duoneb -) 1 amp NEB RQID [facility] Last Admin: 11/03/17 08:18 Dose: 1 amp Artificial Tears (Artificial Tears) 1 drop OU BID PRN PRN Reason: DRY EYES Docusate Sodium (Colace -) 100 mg PO TID [facility] Last Admin: 11/03/17 06:06 Dose: 100 mg Enoxaparin Sodium (Lovenox -) 40 mg SQ DAILY [facility] Last Admin: 11/03/17 11:24 Dose: Not Given Fluconazole (Diflucan -) 100 mg PO DAILY [facility] Last Admin: 11/03/17 10:54 Dose: 100 mg IV Flush (Picc Line Flush) 8 ml IVPUSH PRN PRN PRN Reason: Protocol IV Flush (Triple Lumen Flush) 4 ml IVPUSH PRN PRN PRN Reason: Protocol Last Admin: 11/03/17 07:14 Dose: 4 ml Ampicillin Sodium 2 gm/ Sodium (Chloride) 100 mls @ 200 mls/hr IVPB Q4H-IV [facility] Last Admin: 11/03/17 10:54 Dose: 200 mls/hr CEFTRIAXONE IN IS-OSM DEXTROSE (Ceftriaxone 2 Gm-D5w Bag) 2 gm in 50 mls @ 100 mls/hr IVPB BID [facility] Last Admin: 11/02/17 21:52 Dose: 100 mls/hr Lactobacillus Acidophilus (Bacid -) 1 tab PO DAILY [facility] Last Admin: 11/03/17 10:54 Dose: 1 tab Lidocaine/Aluminum/Magnesium/Simeth (Magic Mouthwash *Sjr Formula* -) 5 ml MM Q6HPO [facility] Last Admin: 11/03/17 06:06 Dose: 5 ml Melatonin (Melatonin) 5 mg PO HS PRN PRN Reason: INSOMNIA Ondansetron HCl (Zofran Odt -) 4 mg SL Q8H PRN PRN Reason: NAUSEA AND/OR VOMITING Polyethylene Glycol (Miralax (For Daily Use) -) 17 gm PO DAILY [facility] Last Admin: 11/03/17 10:55 Dose: 17 gm Ranitidine HCl (Zantac -) 150 mg PO DAILY [facility] Last Admin: 11/03/17 10:54 Dose: 150 mg Senna (Senna -) 2 tab PO HS PRN PRN Reason: CONSTIPATION - Objective Vital Signs: Vital Signs Temperature 97.8 F 11/03/17 06:04 Pulse Rate 104 H 11/03/17 06:04 Respiratory Rate 20 11/03/17 06:04 Blood Pressure 115/79 11/03/17 06:04 O2 Sat by Pulse Oximetry (%) 98 11/02/17 21:00 Eyes: Yes: PERRL HENT: Yes: Atraumatic Neck: Yes: Supple Cardiovascular: Yes: Regular Rate and Rhythm, S1, S2 Respiratory: Yes: Diminished Gastrointestinal: Yes: Normal Bowel Sounds, Soft. 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 Code(s): C50.919 - MALIGNANT NEOPLASM OF UNSP SITE OF UNSPECIFIED FEMALE BREAST ; C78.00 - SECONDARY MALIGNANT NEOPLASM OF UNSPECIFIED LUNG Qualifiers: Laterality: right Qualified Code(s): C50.911 - Malignant neoplasm of unspecified site of right female breast; C78.00 - Secondary malignant neoplasm of unspecified lung; C78.00 - Secondary malignant neoplasm of unspecified lung; C78.00 - Secondary malignant neoplasm of unspecified lung; C78.00 - Secondary malignant neoplasm of unspecified lung (2) Bacteremia Code(s): R78.81 - BACTEREMIA (3) Leukocytosis Code(s): D72.829 - ELEVATED WHITE BLOOD CELL COUNT, UNSPECIFIED Qualifiers: Leukocytosis type: bandemia Qualified Code(s): D72.825 - Bandemia (4) Pneumonia Code(s): J18.9 - PNEUMONIA, UNSPECIFIED ORGANISM (5) Von Willebrand disease Code(s): D68.0 - VON WILLEBRAND'S DISEASE (6) Breast cancer metastasized to brain Code(s): C50.919 - MALIGNANT NEOPLASM OF UNSP SITE OF UNSPECIFIED FEMALE BREAST ; C79.31 - SECONDARY MALIGNANT NEOPLASM OF BRAIN Qualifiers: Laterality: unspecified laterality Qualified Code(s): C50.919 - Malignant neoplasm of unspecified site of unspecified female breast; C79.31 - Secondary malignant neoplasm of brain; C79.31 - Secondary malignant neoplasm of brain; C79.31 - Secondary malignant neoplasm of brain; C79.31 - Secondary malignant neoplasm of brain Assessment/Plan 1. Suspicious mobile LA echodensity, etiology unclear 2. Enterococcal bacteremia/sepsis suspect port infection post removal 3. Multi-lobar pneumonia 4. Breast CA with metastasis to brain and lung post lumpectomy, gamma knife and radiation and chemotherapy 5. Anemia and thrombocytopenia referable to sepsis PLAN: 1. Transthoracic echocardiography images re-examined - would favor conservative management as patient will not be an ideal candidate for any surgical intervention at this time even though it is not fully clear as to the etiology of the echodensity in the left atrium. 2. Antibiotic coverage per ID. 3. Follow surveillance culture Further plans are to follow Wagner Goldman MD
--- NOTE | 2017-11-03 13:19 | CON.PULM ---
Consult Consult Specialty:: PULMONARY Referred by:: KARIME Weeks Reason for Consultation:: pneumonia - History of Present Illness Chief Complaint: cough History of Present Illness: 72yo female with h/o metastatic breast ca to brain, lung, on chemotherapy, Von Willebrand disease who was admitted with worsening cough and generalized weakness. Initial UA/UCx showing UTI but also with enterococcal bacteremia. Evaluated by ID, started on antibiotics, port removed and now with LIJ central line. During initial work up, CT chest also noted to have bilateral infiltrates concerning for pneumonia. Echocardiogram also with suspicious LA density. Currently denies shortness of breath or chest pain. No fevers or chills. Reports intermittent cough and wheezing. Denies any history of asthma or COPD, states she is a never smoker. - Past Medical History Pulmonary: Yes: Cancer (Metastatic from breast) - Past Surgical History Additional Surgical History: Lumpectomy and port removal and reimsertion - Alcohol/Substance Use Hx Alcohol Use: No (RARELY) - Smoking History Smoking history: Never smoked Have you smoked in the past 12 months: No Home Medications - Allergies Allergies/Adverse Reactions: Allergies Allergy/AdvReac Type Severity Reaction Status Date / Time No Known Drug Allergies Allergy Verified 09/04/15 11:26 platelets AdvReac Chills Uncoded 08/15/15 07:05 - Home Medications Home Medications: Ambulatory Orders Benzonatate [Tessalon Pearls -] 100 mg PO TID 10/23/17 Chemo Theapy Diluent No.1/Pf [Elliotts B Solution Ampule] 1 ml IT ASDIR Nystatin Oral Suspension - [Nystatin Oral Susp 371095 Units/5 ML -] 500,000 units PO TID 10/23/17 Sulfamethoxazole/Trimethoprim [Bactrim Ds -] 1 tab PO BID 10/23/17 Family Disease History - Family Disease History Family Disease History: CA: Grandparent, Brother (esophageal) Review of Systems - Review of Systems Constitutional: reports: Weakness. denies: Chills, Fever Eyes: denies: Recent Change in Vision HENT: denies: Nasal Congestion, Throat Pain Neck: denies: Stiffness, Tenderness Cardiovascular: denies: Chest Pain, Shortness of Breath Respiratory: reports: Cough, Wheezing. denies: Hemoptysis Gastrointestinal: denies: Abdominal Pain, Nausea, Vomiting Genitourinary: denies: Dysuria, Hematuria Physical Exam Vital Sings: Vital Signs Temperature 97.8 F 11/03/17 06:04 Pulse Rate 104 H 11/03/17 06:04 Respiratory Rate 20 11/03/17 06:04 Blood Pressure 115/79 11/03/17 06:04 O2 Sat by Pulse Oximetry (%) 98 11/02/17 21:00 Constitutional: Yes: Calm Eyes: Yes: Conjunctiva Clear, EOM Intact HENT: Yes: Atraumatic, Normocephalic Neck: Yes: Supple, Trachea Midline Cardiovascular: Yes: Regular Rate and Rhythm Respiratory: Yes: Diminished (decreased breath sounds at the bases) ...Clubbing: No Gastrointestinal: Yes: Normal Bowel Sounds, Soft. No: Tenderness Edema: Yes Neurological: Yes: Alert, Oriented Labs: CBC, BMP 11/03/17 06:00 11/03/17 06:00 Imaging - Results Chest X-ray: Report Reviewed, Image Reviewed Cat Scan: Report Reviewed, Image Reviewed Problem List - Problems (1) Bacteremia Code(s): R78.81 - BACTEREMIA (2) 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 Code(s): C50.919 - MALIGNANT NEOPLASM OF UNSP SITE OF UNSPECIFIED FEMALE BREAST ; C78.00 - SECONDARY MALIGNANT NEOPLASM OF UNSPECIFIED LUNG Qualifiers: Laterality: right Qualified Code(s): C50.911 - Malignant neoplasm of unspecified site of right female breast; C78.00 - Secondary malignant neoplasm of unspecified lung; C78.00 - Secondary malignant neoplasm of unspecified lung; C78.00 - Secondary malignant neoplasm of unspecified lung; C78.00 - Secondary malignant neoplasm of unspecified lung (3) Pneumonia Code(s): J18.9 - PNEUMONIA, UNSPECIFIED ORGANISM (4) Urinary tract infection Code(s): N39.0 - URINARY TRACT INFECTION, SITE NOT SPECIFIED Qualifiers: Urinary tract infection type: site unspecified Hematuria presence: without hematuria Qualified Code(s): N39.0 - Urinary tract infection, site not specified (5) Von Willebrand disease Code(s): D68.0 - VON WILLEBRAND'S DISEASE Assessment/Plan Pneumonia Enterococcal Bacteremia UTI r/o Endocarditis Metastatic Breast Ca to lung/brain Von Willebrand Disease - continue antibiotics - f/u pending cultures for clearance of bacteremia - will need intermediate designer access once bacteremia clears - inhaled bronchodilators as needed - O2 to keep SpO2 >90% - monitor CBC - DVT prophylaxis Thank you for this consult Tam Mac MD
[2017-11-03] MEDS: CEFTRIAXONE IN IS-OSM DEXTROSE 2 GM/50 ML BAG IVPB SCH ×2 (14:31→21:06)
--- NOTE | 2017-11-03 14:33 | PN ---
Progress Note, Physician History of Present Illness: Awake, alert No c/o pain at rest Afebrile 11/02 prelim no growth - Current Medication List Current Medications: Active Medications Acetaminophen (Tylenol -) 650 mg PO Q6H PRN PRN Reason: FEVER Albuterol Sulfate (Ventolin 0.083% Nebulizer Soln -) 1 amp NEB Q4H PRN PRN Reason: SHORT OF BREATH/WHEEZING Last Admin: 10/31/17 08:20 Dose: 1 amp Albuterol/Ipratropium (Duoneb -) 1 amp NEB RQID [facility] Last Admin: 11/03/17 08:18 Dose: 1 amp Artificial Tears (Artificial Tears) 1 drop OU BID PRN PRN Reason: DRY EYES Docusate Sodium (Colace -) 100 mg PO TID [facility] Last Admin: 11/03/17 06:06 Dose: 100 mg Enoxaparin Sodium (Lovenox -) 40 mg SQ DAILY [facility] Last Admin: 11/03/17 11:24 Dose: Not Given Fluconazole (Diflucan -) 100 mg PO DAILY [facility] Last Admin: 11/03/17 10:54 Dose: 100 mg IV Flush (Picc Line Flush) 8 ml IVPUSH PRN PRN PRN Reason: Protocol IV Flush (Triple Lumen Flush) 4 ml IVPUSH PRN PRN PRN Reason: Protocol Last Admin: 11/03/17 07:14 Dose: 4 ml Ampicillin Sodium 2 gm/ Sodium (Chloride) 100 mls @ 200 mls/hr IVPB Q4H-IV [facility] Last Admin: 11/03/17 10:54 Dose: 200 mls/hr CEFTRIAXONE IN IS-OSM DEXTROSE (Ceftriaxone 2 Gm-D5w Bag) 2 gm in 50 mls @ 100 mls/hr IVPB BID [facility] Last Admin: 11/02/17 21:52 Dose: 100 mls/hr Lactobacillus Acidophilus (Bacid -) 1 tab PO DAILY [facility] Last Admin: 11/03/17 10:54 Dose: 1 tab Lidocaine/Aluminum/Magnesium/Simeth (Magic Mouthwash *Sjr Formula* -) 5 ml MM Q6HPO [facility] Last Admin: 11/03/17 12:56 Dose: Not Given Melatonin (Melatonin) 5 mg PO HS PRN PRN Reason: INSOMNIA Ondansetron HCl (Zofran Odt -) 4 mg SL Q8H PRN PRN Reason: NAUSEA AND/OR VOMITING Polyethylene Glycol (Miralax (For Daily Use) -) 17 gm PO DAILY [facility] Last Admin: 11/03/17 10:55 Dose: 17 gm Ranitidine HCl (Zantac -) 150 mg PO DAILY [facility] Last Admin: 11/03/17 10:54 Dose: 150 mg Senna (Senna -) 2 tab PO HS PRN PRN Reason: CONSTIPATION - Objective Vital Signs: Vital Signs Temperature 97.8 F 11/03/17 06:04 Pulse Rate 104 H 11/03/17 06:04 Respiratory Rate 20 11/03/17 06:04 Blood Pressure 115/79 11/03/17 06:04 O2 Sat by Pulse Oximetry (%) 98 11/02/17 21:00 Constitutional: Yes: No Distress, Obese Eyes: Yes: Conjunctiva Clear Cardiovascular: Yes: Regular Rate and Rhythm, S1, S2 Respiratory: Yes: Diminished Gastrointestinal: Yes: Normal Bowel Sounds, Soft, Abdomen, Obese. No: Tenderness Edema: Yes Edema: LUE: 3+, RUE: 2+, LLE: 2+, RLE: 2+ Labs: CBC, BMP 11/03/17 06:00 11/03/17 06:00 INR, PTT INR 1.24 (0.82-1.09) H 10/28/17 08:20 Assessment/Plan Enterococcal bacteremia/sepsis/endocarditis S/P removal of port Multilobar pneumonia Metastatic carcinoma Continue ampicillin/ ceftriaxone. Last +BC 10/31/17 Tunnel catheter for detention antibiotic therapy when bacteremia cleared
--- NOTE | 2017-11-03 16:34 | PATH ---
Surgical Pathology Report Patient Name: ADRIA ALEJO Med. Rec. #: [id number] /Age/Gender: 1945 (Age: 72) / F Account: [id number] Location: [facility] MED/SURG Taken: 10/28/2017 Received: 10/28/2017 Reported: 11/03/2017 Physicians: Arnold Oquendo M.D. Specimen(s) Received INFECTED PORTACATH Clinical History Port infection Final Diagnosis INFECTED PORT-A-CATH, REMOVAL: PORT-A-CATH, DESCRIBED (GROSS EXAMINATION ONLY). Electronically Signed Kamila Chambers M.D. Gross Description Received fresh labeled "infected Port-A-Cath," is a 4.0 x 3.0 x 1.5 cm purple, irregular device, consistent with a port. The port displays a 14 cm in length portion of white tubing extending from one aspect. No soft tissue is present. No sections are submitted, gross only. /10/29/2017 [facility]10/29/2017
[2017-11-03] MEDS ORDERED: FUROSEMIDE 40 MG/4 ML INJECTABLE VIAL IVPUSH ONE (17:15)
[2017-11-03] MEDS ORDERED: FUROSEMIDE 40 MG/4 ML INJECTABLE VIAL ONE (20:36)
[2017-11-03] MEDS: oxyCODONE HCL 5 MG TABLET PO PRN (21:07)
[2017-11-03] MEDS: MELATONIN 5 MG TABLETS PO PRN (21:07)
[2017-11-04] MEDS: AMPICILLIN - 2 GM in SODIUM CHLORIDE 100 ML IVPB SCH ×6 (02:54→22:46)
[2017-11-04] MEDS ORDERED: PT OWN MED DRAWER 7, Y5N ONE ×4 (05:12→19:09)
[2017-11-04] MEDS: oxyCODONE HCL 5 MG TABLET PO PRN ×2 (05:17→20:27)
[2017-11-04] MEDS: DOCUSATE SODIUM 100 MG CAPSULE (FP) PO SCH ×3 (05:17→22:47)
[2017-11-04] MEDS: MAG HYDROX/ALH/SMC/DPHA/LIDO 240 ML MOUTHWASH MM SCH ×4 (05:18→23:53)
[2017-11-04 07:48] LABS: CHLORIDE 98 mmol/L (98-107); POTASSIUM 3.5 mmol/L (3.5-5.1); SODIUM 142 mmol/L (136-145)
[2017-11-04 07:55] LABS: HEMATOCRIT 26.7 % (32.4-45.2); HEMOGLOBIN 9.1 GM/dL (10.7-15.3); MCH 31.6 pg (25.7-33.7); MCHC 34.1 g/dl (32.0-36.0); MEAN CELL VOLUME 92.9 fl (80-96); MEAN PLT VOLUME 8.8 fl (7.5-11.1); PLATELET COUNT 104 K/MM3 (134-434); RBC 2.88 M/mm3 (3.60-5.2); RDW 18.1 % (11.6-15.6); WHITE BLOOD COUNT 9.1 K/mm3 (4.0-10.0)
[2017-11-04 08:04] LABS: ALBUMIN 1.5 g/dl (3.4-5.0); ALK PHOS 90 U/L (45-117); ANION GAP 7 (8-16); BILIRUBIN,TOTAL 0.8 mg/dL (0.2-1.0); BLOOD UREA NITROGEN 9 mg/dL (7-18); CALCIUM 8.1 mg/dL (8.5-10.1); CO2 37 mmol/L (21-32); CREATININE 0.4 mg/dL (0.55-1.02); GLUCOSE,RANDOM 86 mg/dL (74-106); MAGNESIUM 1.7 mg/dL (1.8-2.4); SGOT/AST 12 U/L (15-37); SGPT/ALT 13 U/L (12-78); TOT PROT 4.9 g/dl (6.4-8.2)
[2017-11-04] MEDS ORDERED: MAGNESIUM SULF 50% (8.12 MEQ/2 ML-1 GM VIAL) IVPB ONE (08:57)
[2017-11-04] MEDS: CEFTRIAXONE IN IS-OSM DEXTROSE 2 GM/50 ML BAG IVPB SCH ×2 (09:43→22:46)
[2017-11-04] MEDS: RANITIDINE HCL 150 MG TABLET (FP) PO SCH (09:43)
[2017-11-04] MEDS: LACTOBACILLUS ACIDOPHILUS 1 EACH TAB (FP) PO SCH (09:43)
[2017-11-04] MEDS: POLYETHYLENE GLYCOL 3350 119 GM BTL PO SCH (09:43)
[2017-11-04] MEDS: FLUCONAZOLE 100 MG TABLET (UD) PO SCH (09:43)
[2017-11-04] MEDS ORDERED: MAGNESIUM SULFATE IN WATER 2 GM/50 ML IVPB IVPB ONE (10:00)
[2017-11-04] MEDS: ALBUTEROL SO4 2.5/IPRATROPIUM 0.5 INH SOL 3 ML VIAL.NEB. NEB SCH ×4 (10:00→21:33)
--- NOTE | 2017-11-04 11:07 | PN ---
Progress Note, Physician History of Present Illness: More awake and alert No c/o pain at rest Afebrile 11/02 no growth Tolerating antibiotics - Current Medication List Current Medications: Active Medications Acetaminophen (Tylenol -) 650 mg PO Q6H PRN PRN Reason: FEVER Albuterol Sulfate (Ventolin 0.083% Nebulizer Soln -) 1 amp NEB Q4H PRN PRN Reason: SHORT OF BREATH/WHEEZING Last Admin: 10/31/17 08:20 Dose: 1 amp Albuterol/Ipratropium (Duoneb -) 1 amp NEB RQID [facility] Last Admin: 11/04/17 10:00 Dose: 1 amp Artificial Tears (Artificial Tears) 1 drop OU BID PRN PRN Reason: DRY EYES Docusate Sodium (Colace -) 100 mg PO TID [facility] Last Admin: 11/04/17 05:17 Dose: 100 mg Fluconazole (Diflucan -) 100 mg PO DAILY [facility] Last Admin: 11/04/17 09:43 Dose: 100 mg IV Flush (Picc Line Flush) 8 ml IVPUSH PRN PRN PRN Reason: Protocol IV Flush (Triple Lumen Flush) 4 ml IVPUSH PRN PRN PRN Reason: Protocol Last Admin: 11/03/17 07:14 Dose: 4 ml Ampicillin Sodium 2 gm/ Sodium (Chloride) 100 mls @ 200 mls/hr IVPB Q4H-IV [facility] Last Admin: 11/04/17 10:38 Dose: 200 mls/hr CEFTRIAXONE IN IS-OSM DEXTROSE (Ceftriaxone 2 Gm-D5w Bag) 2 gm in 50 mls @ 100 mls/hr IVPB BID [facility] Last Admin: 11/04/17 09:43 Dose: 100 mls/hr Lactobacillus Acidophilus (Bacid -) 1 tab PO DAILY [facility] Last Admin: 11/04/17 09:43 Dose: 1 tab Lidocaine/Aluminum/Magnesium/Simeth (Magic Mouthwash *Sjr Formula* -) 5 ml MM Q6HPO [facility] Last Admin: 11/04/17 05:18 Dose: 5 ml Melatonin (Melatonin) 5 mg PO HS PRN PRN Reason: INSOMNIA Last Admin: 11/03/17 21:07 Dose: 5 mg Ondansetron HCl (Zofran Odt -) 4 mg SL Q8H PRN PRN Reason: NAUSEA AND/OR VOMITING Oxycodone HCl (Roxicodone -) 5 mg PO Q6H PRN PRN Reason: PAIN LEVEL 6-10 Last Admin: 11/04/17 05:17 Dose: 5 mg Polyethylene Glycol (Miralax (For Daily Use) -) 17 gm PO DAILY [facility] Last Admin: 11/04/17 09:43 Dose: 17 gm Ranitidine HCl (Zantac -) 150 mg PO DAILY [facility] Last Admin: 11/04/17 09:43 Dose: 150 mg Senna (Senna -) 2 tab PO HS PRN PRN Reason: CONSTIPATION - Objective Vital Signs: Vital Signs Temperature 98.0 F 11/04/17 09:01 Pulse Rate 107 H 11/04/17 09:01 Respiratory Rate 20 11/04/17 09:01 Blood Pressure 123/72 11/04/17 09:01 O2 Sat by Pulse Oximetry (%) 97 11/04/17 09:00 Constitutional: Yes: No Distress, Obese Eyes: Yes: Conjunctiva Clear Cardiovascular: Yes: Regular Rate and Rhythm, S1, S2 Respiratory: Yes: Diminished Gastrointestinal: Yes: Normal Bowel Sounds, Soft, Abdomen, Obese. No: Tenderness Edema: LUE: 2+, RUE: 2+, LLE: 2+, RLE: 2+ Labs: CBC, BMP 11/04/17 06:00 11/04/17 06:00 INR, PTT INR 1.24 (0.82-1.09) H 10/28/17 08:20 Assessment/Plan Enterococcal bacteremia/sepsis/endocarditis S/P removal of port Multilobar pneumonia Metastatic carcinoma Continue ampicillin/ ceftriaxone. Last +BC 10/31/17 Repeat BC 11/02 prelim negative. Will get one more set today Tunnel catheter for [facility] antibiotic therapy when bacteremia cleared
[2017-11-04 12:03] LABS: ANISOCYTOSIS 2+; MACROCYTOSIS 1+; PLATELET ESTIMATE DECREASED
--- NOTE | 2017-11-04 13:02 | PN ---
Progress Note, Physician History of Present Illness: PULMONARY ALERT,COMFORTABLE,NAD,-SOB,MIN COUGH - Current Medication List Current Medications: Active Medications Acetaminophen (Tylenol -) 650 mg PO Q6H PRN PRN Reason: FEVER Albuterol Sulfate (Ventolin 0.083% Nebulizer Soln -) 1 amp NEB Q4H PRN PRN Reason: SHORT OF BREATH/WHEEZING Last Admin: 10/31/17 08:20 Dose: 1 amp Albuterol/Ipratropium (Duoneb -) 1 amp NEB RQID [facility] Last Admin: 11/04/17 11:48 Dose: 1 amp Artificial Tears (Artificial Tears) 1 drop OU BID PRN PRN Reason: DRY EYES Docusate Sodium (Colace -) 100 mg PO TID [facility] Last Admin: 11/04/17 05:17 Dose: 100 mg Fluconazole (Diflucan -) 100 mg PO DAILY [facility] Last Admin: 11/04/17 09:43 Dose: 100 mg IV Flush (Picc Line Flush) 8 ml IVPUSH PRN PRN PRN Reason: Protocol IV Flush (Triple Lumen Flush) 4 ml IVPUSH PRN PRN PRN Reason: Protocol Last Admin: 11/03/17 07:14 Dose: 4 ml Ampicillin Sodium 2 gm/ Sodium (Chloride) 100 mls @ 200 mls/hr IVPB Q4H-IV [facility] Last Admin: 11/04/17 10:38 Dose: 200 mls/hr CEFTRIAXONE IN IS-OSM DEXTROSE (Ceftriaxone 2 Gm-D5w Bag) 2 gm in 50 mls @ 100 mls/hr IVPB BID [facility] Last Admin: 11/04/17 09:43 Dose: 100 mls/hr Lactobacillus Acidophilus (Bacid -) 1 tab PO DAILY [facility] Last Admin: 11/04/17 09:43 Dose: 1 tab Lidocaine/Aluminum/Magnesium/Simeth (Magic Mouthwash *Sjr Formula* -) 5 ml MM Q6HPO [facility] Last Admin: 11/04/17 11:19 Dose: 5 ml Melatonin (Melatonin) 5 mg PO HS PRN PRN Reason: INSOMNIA Last Admin: 11/03/17 21:07 Dose: 5 mg Ondansetron HCl (Zofran Odt -) 4 mg SL Q8H PRN PRN Reason: NAUSEA AND/OR VOMITING Oxycodone HCl (Roxicodone -) 5 mg PO Q6H PRN PRN Reason: PAIN LEVEL 6-10 Last Admin: 11/04/17 05:17 Dose: 5 mg Polyethylene Glycol (Miralax (For Daily Use) -) 17 gm PO DAILY [facility] Last Admin: 11/04/17 09:43 Dose: 17 gm Ranitidine HCl (Zantac -) 150 mg PO DAILY [facility] Last Admin: 11/04/17 09:43 Dose: 150 mg Senna (Senna -) 2 tab PO HS PRN PRN Reason: CONSTIPATION - Objective Vital Signs: Vital Signs Temperature 98.0 F 11/04/17 09:01 Pulse Rate 107 H 11/04/17 09:01 Respiratory Rate 20 11/04/17 09:01 Blood Pressure 123/72 11/04/17 09:01 O2 Sat by Pulse Oximetry (%) 97 11/04/17 09:00 Constitutional: Yes: Well Nourished, Calm Eyes: Yes: WNL HENT: Yes: WNL Neck: Yes: WNL Cardiovascular: Yes: Regular Rate and Rhythm, S1, S2 Respiratory: Yes: Diminished (FEW RHONCHI) Gastrointestinal: Yes: Normal Bowel Sounds, Soft Extremities: Yes: WNL Edema: Yes Labs: CBC, BMP 11/04/17 06:00 11/04/17 06:00 INR, PTT INR 1.24 (0.82-1.09) H 10/28/17 08:20 Assessment/Plan Problem List - Problems (1) Bacteremia Code(s): R78.81 - BACTEREMIA (2) 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 Code(s): C50.919 - MALIGNANT NEOPLASM OF UNSP SITE OF UNSPECIFIED FEMALE BREAST ; C78.00 - SECONDARY MALIGNANT NEOPLASM OF UNSPECIFIED LUNG Qualifiers: Laterality: right Qualified Code(s): C50.911 - Malignant neoplasm of unspecified site of right female breast; C78.00 - Secondary malignant neoplasm of unspecified lung; C78.00 - Secondary malignant neoplasm of unspecified lung; C78.00 - Secondary malignant neoplasm of unspecified lung; C78.00 - Secondary malignant neoplasm of unspecified lung (3) Pneumonia Code(s): J18.9 - PNEUMONIA, UNSPECIFIED ORGANISM (4) Urinary tract infection Code(s): N39.0 - URINARY TRACT INFECTION, SITE NOT SPECIFIED Qualifiers: Urinary tract infection type: site unspecified Hematuria presence: without hematuria Qualified Code(s): N39.0 - Urinary tract infection, site not specified (5) Von Willebrand disease Code(s): D68.0 - VON WILLEBRAND'S DISEASE Assessment/Plan Pneumonia Enterococcal Bacteremia UTI r/o Endocarditis Metastatic Breast Ca to lung/brain Von Willebrand Disease - continue antibiotics as per ID - will need exterminator access once bacteremia clears - inhaled bronchodilators - O2 to keep SpO2 >90% - monitor CBC - DVT prophylaxis DR LEE
--- NOTE | 2017-11-04 14:43 | PN ---
Progress Note, Physician History of Present Illness: Blood cultures so far clear with appropriate abx coverage as of 11/02. Patient feels improved post pRBC transfusion. - Current Medication List Current Medications: Active Medications Acetaminophen (Tylenol -) 650 mg PO Q6H PRN PRN Reason: FEVER Albuterol Sulfate (Ventolin 0.083% Nebulizer Soln -) 1 amp NEB Q4H PRN PRN Reason: SHORT OF BREATH/WHEEZING Last Admin: 10/31/17 08:20 Dose: 1 amp Albuterol/Ipratropium (Duoneb -) 1 amp NEB RQID [facility] Last Admin: 11/04/17 11:48 Dose: 1 amp Artificial Tears (Artificial Tears) 1 drop OU BID PRN PRN Reason: DRY EYES Docusate Sodium (Colace -) 100 mg PO TID [facility] Last Admin: 11/04/17 13:10 Dose: 100 mg Fluconazole (Diflucan -) 100 mg PO DAILY [facility] Last Admin: 11/04/17 09:43 Dose: 100 mg IV Flush (Picc Line Flush) 8 ml IVPUSH PRN PRN PRN Reason: Protocol IV Flush (Triple Lumen Flush) 4 ml IVPUSH PRN PRN PRN Reason: Protocol Last Admin: 11/03/17 07:14 Dose: 4 ml Ampicillin Sodium 2 gm/ Sodium (Chloride) 100 mls @ 200 mls/hr IVPB Q4H-IV [facility] Last Admin: 11/04/17 13:10 Dose: 200 mls/hr CEFTRIAXONE IN IS-OSM DEXTROSE (Ceftriaxone 2 Gm-D5w Bag) 2 gm in 50 mls @ 100 mls/hr IVPB BID [facility] Last Admin: 11/04/17 09:43 Dose: 100 mls/hr Lactobacillus Acidophilus (Bacid -) 1 tab PO DAILY [facility] Last Admin: 11/04/17 09:43 Dose: 1 tab Lidocaine/Aluminum/Magnesium/Simeth (Magic Mouthwash *Sjr Formula* -) 5 ml MM Q6HPO [facility] Last Admin: 11/04/17 11:19 Dose: 5 ml Melatonin (Melatonin) 5 mg PO HS PRN PRN Reason: INSOMNIA Last Admin: 11/03/17 21:07 Dose: 5 mg Ondansetron HCl (Zofran Odt -) 4 mg SL Q8H PRN PRN Reason: NAUSEA AND/OR VOMITING Oxycodone HCl (Roxicodone -) 5 mg PO Q6H PRN PRN Reason: PAIN LEVEL 6-10 Last Admin: 11/04/17 05:17 Dose: 5 mg Polyethylene Glycol (Miralax (For Daily Use) -) 17 gm PO DAILY [facility] Last Admin: 11/04/17 09:43 Dose: 17 gm Ranitidine HCl (Zantac -) 150 mg PO DAILY [facility] Last Admin: 11/04/17 09:43 Dose: 150 mg Senna (Senna -) 2 tab PO HS PRN PRN Reason: CONSTIPATION - Objective Vital Signs: Vital Signs Temperature 98.0 F 11/04/17 09:01 Pulse Rate 107 H 11/04/17 09:01 Respiratory Rate 20 11/04/17 09:01 Blood Pressure 123/72 11/04/17 09:01 O2 Sat by Pulse Oximetry (%) 97 11/04/17 09:00 Constitutional: Yes: No Distress, Calm Neck: Yes: Supple Cardiovascular: Yes: Regular Rate and Rhythm Respiratory: Yes: Regular, Diminished Gastrointestinal: Yes: Normal Bowel Sounds, Soft Edema: Yes Edema: LUE: 1+, RUE: 1+ Labs: CBC, BMP 11/04/17 06:00 11/04/17 06:00 INR, PTT INR 1.24 (0.82-1.09) H 10/28/17 08:20 Problem List - Problems (1) Bacteremia Code(s): R78.81 - BACTEREMIA (2) 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 Code(s): C50.919 - MALIGNANT NEOPLASM OF UNSP SITE OF UNSPECIFIED FEMALE BREAST ; C78.00 - SECONDARY MALIGNANT NEOPLASM OF UNSPECIFIED LUNG Qualifiers: Laterality: right Qualified Code(s): C50.911 - Malignant neoplasm of unspecified site of right female breast; C78.00 - Secondary malignant neoplasm of unspecified lung; C78.00 - Secondary malignant neoplasm of unspecified lung; C78.00 - Secondary malignant neoplasm of unspecified lung; C78.00 - Secondary malignant neoplasm of unspecified lung (3) Pneumonia Code(s): J18.9 - PNEUMONIA, UNSPECIFIED ORGANISM (4) Urinary tract infection Code(s): N39.0 - URINARY TRACT INFECTION, SITE NOT SPECIFIED Qualifiers: Urinary tract infection type: site unspecified Hematuria presence: without hematuria Qualified Code(s): N39.0 - Urinary tract infection, site not specified (5) Breast cancer metastasized to brain Code(s): C50.919 - MALIGNANT NEOPLASM OF UNSP SITE OF UNSPECIFIED FEMALE BREAST ; C79.31 - SECONDARY MALIGNANT NEOPLASM OF BRAIN Qualifiers: Laterality: unspecified laterality Qualified Code(s): C50.919 - Malignant neoplasm of unspecified site of unspecified female breast; C79.31 - Secondary malignant neoplasm of brain; C79.31 - Secondary malignant neoplasm of brain; C79.31 - Secondary malignant neoplasm of brain; C79.31 - Secondary malignant neoplasm of brain (6) Thrombocytopenia Code(s): D69.6 - THROMBOCYTOPENIA, UNSPECIFIED (7) Anemia Code(s): D64.9 - ANEMIA, UNSPECIFIED Qualifiers: Anemia type: bone marrow failure Bone marrow failure anemia type: pancytopenia, antineoplastic chemotherapy-induced Qualified Code(s): D61.810 - Antineoplastic chemotherapy induced pancytopenia; T45.1X5A - Adverse effect of antineoplastic and immunosuppressive drugs, initial encounter; T45.1X5A - Adverse effect of antineoplastic and immunosuppressive drugs, initial encounter Assessment/Plan 1. Suspicious mobile LA echodensity, etiology unclear 2. Enterococcal bacteremia/sepsis suspect port infection post removal 3. Multi-lobar pneumonia 4. Breast CA with metastasis to brain and lung post lumpectomy, gamma knife and radiation and chemotherapy 5. Anemia and thrombocytopenia referable to sepsis post transfusion 6. Von Willebrand Disease PLAN: 1. Transthoracic echocardiography images re-examined - would favor conservative management as patient will not be an ideal candidate for any surgical intervention at this time even though it is not fully clear as to the etiology of the echodensity in the left atrium. 2. Long-term antibiotic coverage per ID via tunneled catheter once bacteremia clears 3. Follow surveillance culture 4. Usual transfusion parameters
--- NOTE | 2017-11-04 15:40 | PN ---
Physical Exam: SUBJECTIVE: Patient seen and examined at the bedside. She denies any pain, discomfort. OBJECTIVE: Spoke to family again in detail, they are considering staying at [facility] since patient is currently improving instead of transferring to [facility] Microbiology called regarding catheter tip, no results yet reported Vital Signs Period Temp Pulse Resp BP Sys/Blum Pulse Ox Last 24 Hr 97.9 F-98.8 F 98-109 20-20 104-123/57-72 97-98 GENERAL: The patient is awake, alert, and fully oriented, in no acute distress. HEAD: Normal with no signs of trauma. EYES: PERRL, extraocular movements intact, sclera anicteric, conjunctiva clear. No ptosis. ENT: Ears normal, nares patent, oropharynx clear without exudates, moist mucous membranes. NECK: Trachea midline, full range of motion, supple. LUNGS: Breath sounds equal, clear to auscultation bilaterally HEART: Regular rate and rhythm ABDOMEN: Soft, nontender, nondistended, normoactive bowel sounds, no guarding, no rebound, no hepatosplenomegaly, no masses. EXTREMITIES:bilateral upper ext edema left >right: negative for DVT NEUROLOGICAL: Normal speech, gait not observed. Laboratory Results - last 24 hr 11/03/17 11/04/17 11/04/17 09:20 06:00 06:00 WBC 9.1 D RBC 2.88 L D Hgb 9.1 L D Hct 26.7 L D MCV 92.9 MCH 31.6 MCHC 34.1 RDW 18.1 H Plt Count 104 L D MPV 8.8 Neutrophils % No Result Required. Neutrophils % (Manual) 87.1 H Band Neutrophils % 0.0 Lymphocytes % No Result Required. Lymphocytes % (Manual) 4.0 L D Monocytes % (Manual) 7 Eosinophils % (Manual) 0.0 Basophils % (Manual) 0.0 Myelocytes % (Man) 0 Promyelocytes % (Man) 0 Nucleated RBC % 1 H Metamyelocytes 2 D Platelet Estimate Decreased Polychromasia 1+ Poikilocytosis 0 Anisocytosis 2+ Microcytosis 1+ Macrocytosis 1+ Spherocytes 2+ Sodium 142 Potassium 3.5 Chloride 98 Carbon Dioxide 37 H Anion Gap 7 L BUN 9 Creatinine 0.4 L Creat Clearance w eGFR > 60 Random Glucose 86 Calcium 8.1 L Magnesium 1.7 L Total Bilirubin 0.8 D AST 12 L ALT 13 Alkaline Phosphatase 90 Total Protein 4.9 L Albumin 1.5 L Blood Type O NEGATIVE Antibody Screen Negative Crossmatch See Detail Active Medications Generic Name Dose Route Start Last Admin Trade Name Freq PRN Reason Stop Dose Admin Acetaminophen 650 mg 10/31/17 08:03 Tylenol - PO Q6H PRN FEVER Albuterol Sulfate 1 amp 10/31/17 08:03 10/31/17 08:20 Ventolin 0.083% Nebulizer Soln - NEB 1 amp Q4H PRN Administration SHORT OF BREATH/WHEEZING Albuterol/Ipratropium 1 amp 10/31/17 12:00 11/04/17 11:48 Duoneb - NEB 1 amp RQID [facility] Administration Artificial Tears 1 drop 10/31/17 08:03 Artificial Tears OU BID PRN DRY EYES Docusate Sodium 100 mg 11/01/17 14:00 11/04/17 13:10 Colace - PO 100 mg TID [facility] Administration Fluconazole 100 mg 10/31/17 10:00 11/04/17 09:43 Diflucan - PO 100 mg DAILY [facility] Administration IV Flush 8 ml 10/29/17 12:06 Picc Line Flush IVPUSH PRN PRN Protocol IV Flush 4 ml 11/02/17 16:45 11/03/17 07:14 Triple Lumen Flush IVPUSH 4 ml PRN PRN Administration Protocol Ampicillin Sodium 2 gm/ Sodium 100 mls @ 200 mls/hr 10/31/17 10:30 11/04/17 13:10 Chloride IVPB 200 mls/hr Q4H-IV [facility] Administration CEFTRIAXONE IN IS-OSM DEXTROSE 2 gm in 50 mls @ 100 mls/hr 11/01/17 22:30 09:43 Ceftriaxone 2 Gm-D5w Bag IVPB 100 mls/hr BID [facility] Administration Lactobacillus Acidophilus 1 tab 10/31/17 10:00 11/04/17 09:43 Bacid - PO 1 tab DAILY [facility] Administration Lidocaine/Aluminum/Magnesium/Simeth 5 ml 10/31/17 12:00 11/04/17 11:19 Magic Mouthwash *Sjr Formula* - MM 5 ml Q6HPO [facility] Administration Melatonin 5 mg 10/31/17 22:00 11/03/17 21:07 Melatonin PO 5 mg HS PRN Administration INSOMNIA Ondansetron HCl 4 mg 10/31/17 08:03 Zofran Odt - SL Q8H PRN NAUSEA AND/OR VOMITING Oxycodone HCl 5 mg 11/03/17 20:45 11/04/17 05:17 Roxicodone - PO 5 mg Q6H PRN Administration PAIN LEVEL 6-10 Polyethylene Glycol 17 gm 11/01/17 12:30 11/04/17 09:43 Miralax (For Daily Use) - PO 17 gm DAILY [facility] Administration Ranitidine HCl 150 mg 10/31/17 10:00 11/04/17 09:43 Zantac - PO 150 mg DAILY [facility] Administration Senna 2 tab 11/01/17 12:19 Senna - PO HS PRN CONSTIPATION ASSESSMENT/PLAN: Patient is a 72 year old female with a significant past medical history of breast cancer with mets to the lung and brain, seizure disorder, Von Willebrand disease, gastric banding and appendectomy. She presents to the ED on 10/23/2017 with worsening dyspnea, cough, and generalized weakness. She was found to have sepsis on admission. Patient initially had mediport on admission which was removed and the catheter tip sent to lab for culture. She now has a TLC that was placed in IR. On admission CT showed bilateral infiltrated suspicious for pneumonia. Echocardiogram 11/02/2017 shows mass in left atrium: clot vs. vegetation vs. tumor On exam, patient is in no acute distress. She is tolerating room air, and denies any chills or malaise. She reports some coughing but overall improving. ID: Sepsis, Bacteremia + blood cultures with enterococcal bacteremia, however most recent blood cultures with no growth to date Pt had port removed and catheter tip removed and sent to lab for culture. TLC placed for difficulty with access, pt will need tunneled catheter once infection clears On Ampicillin, Ceftriaxone as per ID Repeat echo unchanged from previous echo both with suspicious mobile LA echodensity ID and Cardiology following Vascular: Upper ext edema Left > right, ruled out for DVT Lasix 20mg daily, discussed with cardiology Monitor renal function Heme/Oncology: Metastatic breast cancer Recent chemo, has outpt oncologist (Dr. Burciaga) who as been updated on POC Thrombocytopenia: Currently @ 86 platelets Monitor with daily labs, bleeding precautions Goal is to maintain platelets at 80 or greater Anemia, like due to hematological disease 2 units of prbc yesterday for hmg/hct 6.10/30 with good effect (Lasix given in between the prbc) Hold Lovenox due to severe anemia Unsure if mass is a clot vs. vegetation vs. tumor High risk for bleeding if a heparin drip or Lovenox BID is started Patient also has thrombocytopenia No chemical prophylaxis, mechanical prophylaxis only Muscular/Skeletal: Right hip pain Improved, PT eval daily F.E.N. Fluids: PO adequate Electrolytes: monitor Nutrition: regular diet Prophylaxis DVT: Lovenox 40mg on hold due to anemia and thrombocytopenia, SCDS ordered GI; deferred Disposition: full code. Patient's family requesting patient to be transferred to [facility] however they are re-considering and currently are willing to have ongoing treatment at [facility]. Visit type - Emergency Visit Emergency Visit: Yes ED Registration Date: 10/23/17 Care time: The patient presented to the Emergency Department on the above date and was hospitalized for further evaluation of their emergent condition. - New Patient This patient is new to me today: No - Critical Care Critical Care patient: No - Discharge Referral Referred to [facility] Med P.C.: No
[2017-11-05] MEDS: AMPICILLIN - 2 GM in SODIUM CHLORIDE 100 ML IVPB SCH ×6 (03:02→21:30)
[2017-11-05] MEDS: DOCUSATE SODIUM 100 MG CAPSULE (FP) PO SCH ×3 (06:50→21:30)
[2017-11-05] MEDS: MAG HYDROX/ALH/SMC/DPHA/LIDO 240 ML MOUTHWASH MM SCH ×3 (06:50→18:14)
[2017-11-05 07:54] LABS: BASO % 0.5 % (0-2.0); EOS % 0.1 % (0-4.5); HEMATOCRIT 26.9 % (32.4-45.2); LYMPH % 12.2 % (8-40); MCH 31.6 pg (25.7-33.7); MCHC 33.6 g/dl (32.0-36.0); MEAN CELL VOLUME 94.1 fl (80-96); MEAN PLT VOLUME 8.6 fl (7.5-11.1); MONO % 8.7 % (3.8-10.2); NEUT % 78.5 % (42.8-82.8); PLATELET COUNT 102 K/MM3 (134-434); RBC 2.85 M/mm3 (3.60-5.2); RDW 19.4 % (11.6-15.6); WHITE BLOOD COUNT 6.8 K/mm3 (4.0-10.0)
[2017-11-05] MEDS: ALBUTEROL SO4 2.5/IPRATROPIUM 0.5 INH SOL 3 ML VIAL.NEB. NEB SCH ×4 (08:00→20:00)
[2017-11-05 08:14] LABS: ALBUMIN 1.5 g/dl (3.4-5.0); ANION GAP 6 (8-16); BLOOD UREA NITROGEN 8 mg/dL (7-18); CALCIUM 7.8 mg/dL (8.5-10.1); CHLORIDE 100 mmol/L (98-107); CO2 36 mmol/L (21-32); GLUCOSE,RANDOM 80 mg/dL (74-106); MAGNESIUM 1.9 mg/dL (1.8-2.4); POTASSIUM 3.5 mmol/L (3.5-5.1); SODIUM 142 mmol/L (136-145)
[2017-11-05 08:18] LABS: ALK PHOS 96 U/L (45-117); BILIRUBIN,TOTAL 0.7 mg/dL (0.2-1.0); CREATININE 0.3 mg/dL (0.55-1.02); SGOT/AST 15 U/L (15-37); SGPT/ALT 12 U/L (12-78); TOT PROT 5.1 g/dl (6.4-8.2)
[2017-11-05] MEDS: ACETAMINOPHEN 325 MG TABLET (FP) PO PRN (10:39)
[2017-11-05] MEDS: oxyCODONE HCL 5 MG TABLET PO PRN ×2 (10:40→21:53)
[2017-11-05] MEDS ORDERED: PT OWN MED DRAWER 7, Y5N ONE (12:01)
[2017-11-05] MEDS: FLUCONAZOLE 100 MG TABLET (UD) PO SCH (12:04)
[2017-11-05] MEDS: LACTOBACILLUS ACIDOPHILUS 1 EACH TAB (FP) PO SCH (12:04)
[2017-11-05] MEDS: FUROSEMIDE 20 MG TABLET (FP) PO SCH (12:04)
[2017-11-05] MEDS: RANITIDINE HCL 150 MG TABLET (FP) PO SCH (12:04)
[2017-11-05] MEDS: CEFTRIAXONE IN IS-OSM DEXTROSE 2 GM/50 ML BAG IVPB SCH ×2 (12:04→21:29)
[2017-11-05] MEDS: POLYETHYLENE GLYCOL 3350 119 GM BTL PO SCH (12:05)
[2017-11-05] MEDS: ENOXAPARIN NA (PORCINE) 40 MG/0.4 ML DISP.SYRIN SQ SCH ×2 (12:05→20:25)
--- NOTE | 2017-11-05 12:52 | PN ---
Progress Note, Physician History of Present Illness: Blood cultures so far clear with appropriate abx coverage as of 11/02. Patient feels improved post pRBC transfusion. - Current Medication List Current Medications: Active Medications Acetaminophen (Tylenol -) 650 mg PO Q6H PRN PRN Reason: FEVER Last Admin: 11/05/17 10:39 Dose: 650 mg Albuterol Sulfate (Ventolin 0.083% Nebulizer Soln -) 1 amp NEB Q4H PRN PRN Reason: SHORT OF BREATH/WHEEZING Last Admin: 10/31/17 08:20 Dose: 1 amp Albuterol/Ipratropium (Duoneb -) 1 amp NEB RQID [facility] Last Admin: 11/05/17 08:00 Dose: Not Given Artificial Tears (Artificial Tears) 1 drop OU BID PRN PRN Reason: DRY EYES Docusate Sodium (Colace -) 100 mg PO TID [facility] Last Admin: 11/05/17 06:50 Dose: 100 mg Enoxaparin Sodium (Lovenox -) 40 mg SQ DAILY [facility] Last Admin: 11/05/17 12:05 Dose: 40 mg Fluconazole (Diflucan -) 100 mg PO DAILY [facility] Last Admin: 11/05/17 12:04 Dose: 100 mg Furosemide (Lasix -) 20 mg PO DAILY [facility] Last Admin: 11/05/17 12:04 Dose: 20 mg IV Flush (Picc Line Flush) 8 ml IVPUSH PRN PRN PRN Reason: Protocol IV Flush (Triple Lumen Flush) 4 ml IVPUSH PRN PRN PRN Reason: Protocol Last Admin: 11/03/17 07:14 Dose: 4 ml Ampicillin Sodium 2 gm/ Sodium (Chloride) 100 mls @ 200 mls/hr IVPB Q4H-IV [facility] Last Admin: 11/05/17 12:04 Dose: 200 mls/hr CEFTRIAXONE IN IS-OSM DEXTROSE (Ceftriaxone 2 Gm-D5w Bag) 2 gm in 50 mls @ 100 mls/hr IVPB BID [facility] Last Admin: 11/05/17 12:04 Dose: 100 mls/hr Lactobacillus Acidophilus (Bacid -) 1 tab PO DAILY [facility] Last Admin: 11/05/17 12:04 Dose: 1 tab Lidocaine/Aluminum/Magnesium/Simeth (Magic Mouthwash *Sjr Formula* -) 5 ml MM Q6HPO [facility] Last Admin: 11/05/17 06:50 Dose: 5 ml Melatonin (Melatonin) 5 mg PO HS PRN PRN Reason: INSOMNIA Last Admin: 11/03/17 21:07 Dose: 5 mg Ondansetron HCl (Zofran Odt -) 4 mg SL Q8H PRN PRN Reason: NAUSEA AND/OR VOMITING Oxycodone HCl (Roxicodone -) 5 mg PO Q6H PRN PRN Reason: PAIN LEVEL 6-10 Last Admin: 11/05/17 10:40 Dose: 5 mg Polyethylene Glycol (Miralax (For Daily Use) -) 17 gm PO DAILY [facility] Last Admin: 11/05/17 12:05 Dose: 17 gm Ranitidine HCl (Zantac -) 150 mg PO DAILY [facility] Last Admin: 11/05/17 12:04 Dose: 150 mg Senna (Senna -) 2 tab PO HS PRN PRN Reason: CONSTIPATION - Objective Vital Signs: Vital Signs Temperature 98 F 11/05/17 12:21 Pulse Rate 96 H 11/05/17 12:21 Respiratory Rate 18 11/05/17 12:21 Blood Pressure 106/62 11/05/17 12:21 O2 Sat by Pulse Oximetry (%) 95 11/04/17 21:00 Constitutional: Yes: No Distress, Calm Neck: Yes: Supple Cardiovascular: Yes: Regular Rate and Rhythm Respiratory: Yes: Regular, Diminished, On Nasal O2 Gastrointestinal: Yes: Normal Bowel Sounds, Soft, Abdomen, Obese Edema: Yes Edema: LUE: 1+, RUE: 1+ Labs: CBC, BMP 11/05/17 06:00 11/05/17 06:00 INR, PTT INR 1.24 (0.82-1.09) H 10/28/17 08:20 Problem List - Problems (1) Bacteremia Code(s): R78.81 - BACTEREMIA (2) 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 Code(s): C50.919 - MALIGNANT NEOPLASM OF UNSP SITE OF UNSPECIFIED FEMALE BREAST ; C78.00 - SECONDARY MALIGNANT NEOPLASM OF UNSPECIFIED LUNG Qualifiers: Laterality: right Qualified Code(s): C50.911 - Malignant neoplasm of unspecified site of right female breast; C78.00 - Secondary malignant neoplasm of unspecified lung; C78.00 - Secondary malignant neoplasm of unspecified lung; C78.00 - Secondary malignant neoplasm of unspecified lung; C78.00 - Secondary malignant neoplasm of unspecified lung (3) Pneumonia Code(s): J18.9 - PNEUMONIA, UNSPECIFIED ORGANISM (4) Urinary tract infection Code(s): N39.0 - URINARY TRACT INFECTION, SITE NOT SPECIFIED Qualifiers: Urinary tract infection type: site unspecified Hematuria presence: without hematuria Qualified Code(s): N39.0 - Urinary tract infection, site not specified (5) Breast cancer metastasized to brain Code(s): C50.919 - MALIGNANT NEOPLASM OF UNSP SITE OF UNSPECIFIED FEMALE BREAST ; C79.31 - SECONDARY MALIGNANT NEOPLASM OF BRAIN Qualifiers: Laterality: unspecified laterality Qualified Code(s): C50.919 - Malignant neoplasm of unspecified site of unspecified female breast; C79.31 - Secondary malignant neoplasm of brain; C79.31 - Secondary malignant neoplasm of brain; C79.31 - Secondary malignant neoplasm of brain; C79.31 - Secondary malignant neoplasm of brain (6) Thrombocytopenia Code(s): D69.6 - THROMBOCYTOPENIA, UNSPECIFIED (7) Anemia Code(s): D64.9 - ANEMIA, UNSPECIFIED Qualifiers: Anemia type: bone marrow failure Bone marrow failure anemia type: pancytopenia, antineoplastic chemotherapy-induced Qualified Code(s): D61.810 - Antineoplastic chemotherapy induced pancytopenia; T45.1X5A - Adverse effect of antineoplastic and immunosuppressive drugs, initial encounter; T45.1X5A - Adverse effect of antineoplastic and immunosuppressive drugs, initial encounter Assessment/Plan 1. Suspicious mobile LA echodensity, etiology unclear 2. Enterococcal bacteremia/sepsis suspect port infection post removal 3. Multi-lobar pneumonia 4. Breast CA with metastasis to brain and lung post lumpectomy, gamma knife and radiation and chemotherapy 5. Anemia and thrombocytopenia referable to sepsis post transfusion 6. Von Willebrand Disease PLAN: 1. Transthoracic echocardiography images re-examined - would favor conservative management as patient will not be an ideal candidate for any surgical intervention at this time even though it is not fully clear as to the etiology of the echodensity in the left atrium. 2. Long-term antibiotic coverage per ID via tunneled catheter once bacteremia clears 3. Follow surveillance culture NGTD 4. Usual transfusion parameters 5. GI and DVT prophylaxis, diuresis as needed
--- NOTE | 2017-11-05 15:58 | PN ---
Progress Note, Physician History of Present Illness: Awake and alert. No c/o pain at rest. Afebrile BC 11/02, 11/04 no growth Tolerating antibiotics - Current Medication List Current Medications: Active Medications Acetaminophen (Tylenol -) 650 mg PO Q6H PRN PRN Reason: FEVER Last Admin: 11/05/17 10:39 Dose: 650 mg Albuterol Sulfate (Ventolin 0.083% Nebulizer Soln -) 1 amp NEB Q4H PRN PRN Reason: SHORT OF BREATH/WHEEZING Last Admin: 10/31/17 08:20 Dose: 1 amp Albuterol/Ipratropium (Duoneb -) 1 amp NEB RQID [facility] Last Admin: 11/05/17 11:00 Dose: 1 amp Artificial Tears (Artificial Tears) 1 drop OU BID PRN PRN Reason: DRY EYES Docusate Sodium (Colace -) 100 mg PO TID [facility] Last Admin: 11/05/17 06:50 Dose: 100 mg Enoxaparin Sodium (Lovenox -) 40 mg SQ DAILY [facility] Last Admin: 11/05/17 12:05 Dose: 40 mg Fluconazole (Diflucan -) 100 mg PO DAILY [facility] Last Admin: 11/05/17 12:04 Dose: 100 mg Furosemide (Lasix -) 20 mg PO DAILY [facility] Last Admin: 11/05/17 12:04 Dose: 20 mg IV Flush (Picc Line Flush) 8 ml IVPUSH PRN PRN PRN Reason: Protocol IV Flush (Triple Lumen Flush) 4 ml IVPUSH PRN PRN PRN Reason: Protocol Last Admin: 11/03/17 07:14 Dose: 4 ml Ampicillin Sodium 2 gm/ Sodium (Chloride) 100 mls @ 200 mls/hr IVPB Q4H-IV [facility] Last Admin: 11/05/17 12:04 Dose: 200 mls/hr CEFTRIAXONE IN IS-OSM DEXTROSE (Ceftriaxone 2 Gm-D5w Bag) 2 gm in 50 mls @ 100 mls/hr IVPB BID [facility] Last Admin: 11/05/17 12:04 Dose: 100 mls/hr Lactobacillus Acidophilus (Bacid -) 1 tab PO DAILY [facility] Last Admin: 11/05/17 12:04 Dose: 1 tab Lidocaine/Aluminum/Magnesium/Simeth (Magic Mouthwash *Sjr Formula* -) 5 ml MM Q6HPO [facility] Last Admin: 11/05/17 13:05 Dose: Not Given Melatonin (Melatonin) 5 mg PO HS PRN PRN Reason: INSOMNIA Last Admin: 11/03/17 21:07 Dose: 5 mg Ondansetron HCl (Zofran Odt -) 4 mg SL Q8H PRN PRN Reason: NAUSEA AND/OR VOMITING Oxycodone HCl (Roxicodone -) 5 mg PO Q6H PRN PRN Reason: PAIN LEVEL 6-10 Last Admin: 11/05/17 10:40 Dose: 5 mg Polyethylene Glycol (Miralax (For Daily Use) -) 17 gm PO DAILY [facility] Last Admin: 11/05/17 12:05 Dose: 17 gm Ranitidine HCl (Zantac -) 150 mg PO DAILY [facility] Last Admin: 11/05/17 12:04 Dose: 150 mg Senna (Senna -) 2 tab PO HS PRN PRN Reason: CONSTIPATION - Objective Vital Signs: Vital Signs Temperature 82 F L 11/05/17 13:02 Pulse Rate 62 11/05/17 13:02 Respiratory Rate 112 H 11/05/17 15:28 Blood Pressure 143/77 11/05/17 15:28 O2 Sat by Pulse Oximetry (%) 95 11/04/17 21:00 Constitutional: Yes: No Distress, Obese Cardiovascular: Yes: Regular Rate and Rhythm, S1, S2 Respiratory: Yes: Diminished Gastrointestinal: Yes: Normal Bowel Sounds, Soft, Abdomen, Obese. No: Tenderness Edema: Yes Labs: CBC, BMP 11/05/17 06:00 11/05/17 06:00 INR, PTT INR 1.24 (0.82-1.09) H 10/28/17 08:20 Assessment/Plan Enterococcal bacteremia/sepsis/endocarditis S/P removal of port Multilobar pneumonia Metastatic carcinoma Continue ampicillin/ ceftriaxone. Last +BC 10/31/17 Repeat BC 11/02, 11/04 no growth Tunnel catheter for director long term care antibiotic therapy when bacteremia cleared Discussed with family members at length
--- NOTE | 2017-11-05 16:22 | PN ---
Physical Exam: SUBJECTIVE: Patient seen and examined. she reports no acute issues, fever, chills. OBJECTIVE: Vital Signs Period Temp Pulse Resp BP Sys/Blum Pulse Ox Last 24 Hr 82 F-98.3 F 62-110 18-112 106-143/62-77 95 PE Neuro: alert,awake, oriented to self family Pulm: clear anterioly CV: s1 s2 rrr Abd: s nt nd + bs Ext: LUE edema > R Skin: RCW port removed site cdi, L central line cdi Laboratory Results - last 24 hr 11/05/17 11/05/17 06:00 06:00 WBC 6.8 RBC 2.85 L Hgb 9.0 L Hct 26.9 L MCV 94.1 MCH 31.6 MCHC 33.6 RDW 19.4 H Plt Count 102 L MPV 8.6 Neutrophils % 78.5 Lymphocytes % 12.2 Monocytes % 8.7 Eosinophils % 0.1 Basophils % 0.5 Sodium 142 Potassium 3.5 Chloride 100 Carbon Dioxide 36 H Anion Gap 6 L BUN 8 Creatinine 0.3 L Creat Clearance w eGFR > 60 Random Glucose 80 Calcium 7.8 L Magnesium 1.9 Total Bilirubin 0.7 AST 15 ALT 12 Alkaline Phosphatase 96 Total Protein 5.1 L Albumin 1.5 L Active Medications Generic Name Dose Route Start Last Admin Trade Name Krishnaq PRN Reason Stop Dose Admin Acetaminophen 650 mg 10/31/17 08:03 11/05/17 10:39 Tylenol - PO 650 mg Q6H PRN Administration FEVER Albuterol Sulfate 1 amp 10/31/17 08:03 10/31/17 08:20 Ventolin 0.083% Nebulizer Soln - NEB 1 amp Q4H PRN Administration SHORT OF BREATH/WHEEZING Albuterol/Ipratropium 1 amp 10/31/17 12:00 11/05/17 15:25 Duoneb - NEB 1 amp RQID LILLIE Administration Artificial Tears 1 drop 10/31/17 08:03 Artificial Tears OU BID PRN DRY EYES Docusate Sodium 100 mg 11/01/17 14:00 11/05/17 16:03 Colace - PO Not Given TID LILLIE Enoxaparin Sodium 40 mg 11/05/17 10:00 11/05/17 12:05 Lovenox - SQ 40 mg DAILY LILLIE Administration Fluconazole 100 mg 10/31/17 10:00 11/05/17 12:04 Diflucan - PO 100 mg DAILY LILLIE Administration Furosemide 20 mg 11/05/17 10:00 11/05/17 12:04 Lasix - PO 20 mg DAILY LILLIE Administration IV Flush 8 ml 10/29/17 12:06 Picc Line Flush IVPUSH PRN PRN Protocol IV Flush 4 ml 11/02/17 16:45 11/03/17 07:14 Triple Lumen Flush IVPUSH 4 ml PRN PRN Administration Protocol Ampicillin Sodium 2 gm/ Sodium 100 mls @ 200 mls/hr 10/31/17 10:30 11/05/17 16:04 Chloride IVPB 200 mls/hr Q4H-IV LILLIE Administration CEFTRIAXONE IN IS-OSM DEXTROSE 2 gm in 50 mls @ 100 mls/hr 11/01/17 22:30 12:04 Ceftriaxone 2 Gm-D5w Bag IVPB 100 mls/hr BID LILLIE Administration Lactobacillus Acidophilus 1 tab 10/31/17 10:00 11/05/17 12:04 Bacid - PO 1 tab DAILY LILLIE Administration Lidocaine/Aluminum/Magnesium/Simeth 5 ml 10/31/17 12:00 11/05/17 13:05 Magic Mouthwash *Sjr Formula* - MM Not Given Q6HPO LILLIE Melatonin 5 mg 10/31/17 22:00 11/03/17 21:07 Melatonin PO 5 mg HS PRN Administration INSOMNIA Ondansetron HCl 4 mg 10/31/17 08:03 Zofran Odt - SL Q8H PRN NAUSEA AND/OR VOMITING Oxycodone HCl 5 mg 11/03/17 20:45 11/05/17 10:40 Roxicodone - PO 5 mg Q6H PRN Administration PAIN LEVEL 6-10 Polyethylene Glycol 17 gm 11/01/17 12:30 11/05/17 12:05 Miralax (For Daily Use) - PO 17 gm DAILY LILLIE Administration Ranitidine HCl 150 mg 10/31/17 10:00 11/05/17 12:04 Zantac - PO 150 mg DAILY LILLIE Administration Senna 2 tab 11/01/17 12:19 Senna - PO HS PRN CONSTIPATION Assessment: 72 year old female with PMHx of metastatic breast cancer (lung and brain), seizure disorder, Von Willebrand disease, s/p gastric band, appendectomy , tubal ligation, cataract surgery, who presented to the ED with several days of worsening dyspnea, cough, and generalized weakness. Plan: 1. Sepsis 2/2 enterococcal bacteremia, multilobar pneumonia, UTI - S/p port removal on 10/28 - Repeat cx negative - Ampicillin, Ceftriaxone per ID - TLC placed, will need plan for longer term abx, likely will need to go home as has recived chemo, unclear how long ago 2. B/l upper extremity edema - DVT negative - Limb elevation 3. Metastatic breast cancer - Follow-up outpatient oncologist upon discharge - Will need to discuss with oncologist tomorrow re: prognosis (Dr. Burciaga) 4. Thrombocytopenia - Likely 2/2 sepsis, continue to monitor - Hold chemical AC at this time 5. Anemia - Transfused 2units 11/03 - Likely 2/2 sepsis - Transfuse if Hgb <7 6. Right hip pain - Evaluated by ortho and does not appear to be septic join at this time - WBAT - PT evaluation 7. Prophylaxis: - Hold all chemical DVT prophylaxis 2/2 thrombocyopenia Visit type - Emergency Visit Emergency Visit: Yes ED Registration Date: 10/23/17 Care time: The patient presented to the Emergency Department on the above date and was hospitalized for further evaluation of their emergent condition. - New Patient This patient is new to me today: Yes Date on this admission: 11/05/17 - Critical Care Critical Care patient: No
--- NOTE | 2017-11-05 16:33 | PN ---
Progress Note, Physician History of Present Illness: pulmonary awake,-resp distress,-tachypnea - Current Medication List Current Medications: Active Medications Acetaminophen (Tylenol -) 650 mg PO Q6H PRN PRN Reason: FEVER Last Admin: 11/05/17 10:39 Dose: 650 mg Albuterol Sulfate (Ventolin 0.083% Nebulizer Soln -) 1 amp NEB Q4H PRN PRN Reason: SHORT OF BREATH/WHEEZING Last Admin: 10/31/17 08:20 Dose: 1 amp Albuterol/Ipratropium (Duoneb -) 1 amp NEB RQID [facility] Last Admin: 11/05/17 15:25 Dose: 1 amp Artificial Tears (Artificial Tears) 1 drop OU BID PRN PRN Reason: DRY EYES Docusate Sodium (Colace -) 100 mg PO TID [facility] Last Admin: 11/05/17 16:03 Dose: Not Given Enoxaparin Sodium (Lovenox -) 40 mg SQ DAILY [facility] Last Admin: 11/05/17 12:05 Dose: 40 mg Fluconazole (Diflucan -) 100 mg PO DAILY [facility] Last Admin: 11/05/17 12:04 Dose: 100 mg Furosemide (Lasix -) 20 mg PO DAILY [facility] Last Admin: 11/05/17 12:04 Dose: 20 mg IV Flush (Picc Line Flush) 8 ml IVPUSH PRN PRN PRN Reason: Protocol IV Flush (Triple Lumen Flush) 4 ml IVPUSH PRN PRN PRN Reason: Protocol Last Admin: 11/03/17 07:14 Dose: 4 ml Ampicillin Sodium 2 gm/ Sodium (Chloride) 100 mls @ 200 mls/hr IVPB Q4H-IV LILLIE Last Admin: 11/05/17 16:04 Dose: 200 mls/hr CEFTRIAXONE IN IS-OSM DEXTROSE (Ceftriaxone 2 Gm-D5w Bag) 2 gm in 50 mls @ 100 mls/hr IVPB BID [facility] Last Admin: 11/05/17 12:04 Dose: 100 mls/hr Lactobacillus Acidophilus (Bacid -) 1 tab PO DAILY [facility] Last Admin: 11/05/17 12:04 Dose: 1 tab Lidocaine/Aluminum/Magnesium/Simeth (Magic Mouthwash *Sjr Formula* -) 5 ml MM Q6HPO [facility] Last Admin: 11/05/17 13:05 Dose: Not Given Melatonin (Melatonin) 5 mg PO HS PRN PRN Reason: INSOMNIA Last Admin: 11/03/17 21:07 Dose: 5 mg Ondansetron HCl (Zofran Odt -) 4 mg SL Q8H PRN PRN Reason: NAUSEA AND/OR VOMITING Oxycodone HCl (Roxicodone -) 5 mg PO Q6H PRN PRN Reason: PAIN LEVEL 6-10 Last Admin: 11/05/17 10:40 Dose: 5 mg Polyethylene Glycol (Miralax (For Daily Use) -) 17 gm PO DAILY [facility] Last Admin: 11/05/17 12:05 Dose: 17 gm Ranitidine HCl (Zantac -) 150 mg PO DAILY [facility] Last Admin: 11/05/17 12:04 Dose: 150 mg Senna (Senna -) 2 tab PO HS PRN PRN Reason: CONSTIPATION - Objective Vital Signs: Vital Signs Temperature 82 F L 11/05/17 13:02 Pulse Rate 62 11/05/17 13:02 Respiratory Rate 112 H 11/05/17 15:28 Blood Pressure 143/77 11/05/17 15:28 O2 Sat by Pulse Oximetry (%) 95 11/04/17 21:00 Constitutional: Yes: Well Nourished, Calm Eyes: Yes: WNL HENT: Yes: WNL Neck: Yes: WNL Cardiovascular: Yes: Regular Rate and Rhythm, S1, S2 Respiratory: Yes: Diminished Gastrointestinal: Yes: Normal Bowel Sounds, Soft Extremities: Yes: WNL Edema: Yes Labs: CBC, BMP 11/05/17 06:00 11/05/17 06:00 INR, PTT INR 1.24 (0.82-1.09) H 10/28/17 08:20 Assessment/Plan Problem List - Problems (1) Bacteremia Code(s): R78.81 - BACTEREMIA (2) 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 Code(s): C50.919 - MALIGNANT NEOPLASM OF UNSP SITE OF UNSPECIFIED FEMALE BREAST ; C78.00 - SECONDARY MALIGNANT NEOPLASM OF UNSPECIFIED LUNG Qualifiers: Laterality: right Qualified Code(s): C50.911 - Malignant neoplasm of unspecified site of right female breast; C78.00 - Secondary malignant neoplasm of unspecified lung; C78.00 - Secondary malignant neoplasm of unspecified lung; C78.00 - Secondary malignant neoplasm of unspecified lung; C78.00 - Secondary malignant neoplasm of unspecified lung (3) Pneumonia Code(s): J18.9 - PNEUMONIA, UNSPECIFIED ORGANISM (4) Urinary tract infection Code(s): N39.0 - URINARY TRACT INFECTION, SITE NOT SPECIFIED Qualifiers: Urinary tract infection type: site unspecified Hematuria presence: without hematuria Qualified Code(s): N39.0 - Urinary tract infection, site not specified (5) Von Willebrand disease Code(s): D68.0 - VON WILLEBRAND'S DISEASE Assessment/Plan Pneumonia Enterococcal Bacteremia UTI r/o Endocarditis Metastatic Breast Ca to lung/brain Von Willebrand Disease - continue antibiotics as per ID - will need rat exterminator access once bacteremia clears - inhaled bronchodilators - O2 to keep SpO2 >90% - monitor CBC - DVT prophylaxis - chest x-ray DR LEE
[2017-11-06] MEDS: MAG HYDROX/ALH/SMC/DPHA/LIDO 240 ML MOUTHWASH MM SCH ×4 (00:09→17:22)
[2017-11-06] MEDS: MELATONIN 5 MG TABLETS PO PRN (00:11)
[2017-11-06] MEDS: AMPICILLIN - 2 GM in SODIUM CHLORIDE 100 ML IVPB SCH ×5 (01:06→18:46)
[2017-11-06] MEDS: DOCUSATE SODIUM 100 MG CAPSULE (FP) PO SCH ×2 (06:02→13:47)
[2017-11-06] MEDS: ALBUTEROL SO4 2.5/IPRATROPIUM 0.5 INH SOL 3 ML VIAL.NEB. NEB SCH ×3 (07:40→15:50)
[2017-11-06 08:21] LABS: BASO % 0.7 % (0-2.0); EOS % 0.2 % (0-4.5); HEMOGLOBIN 8.3 GM/dL (10.7-15.3); LYMPH % 13.6 % (8-40); MCH 31.5 pg (25.7-33.7); MCHC 33.1 g/dl (32.0-36.0); MEAN CELL VOLUME 95.3 fl (80-96); MEAN PLT VOLUME 8.9 fl (7.5-11.1); MONO % 9.9 % (3.8-10.2); NEUT % 75.6 % (42.8-82.8); PLATELET COUNT 101 K/MM3 (134-434); RBC 2.62 M/mm3 (3.60-5.2); WHITE BLOOD COUNT 4.6 K/mm3 (4.0-10.0)
[2017-11-06] MEDS ORDERED: PT OWN MED DRAWER 7, Y5N ONE (08:24)
[2017-11-06 08:35] LABS: CHLORIDE 99 mmol/L (98-107); POTASSIUM 3.4 mmol/L (3.5-5.1); SODIUM 141 mmol/L (136-145)
[2017-11-06 08:54] LABS: ALBUMIN 1.5 g/dl (3.4-5.0); ALK PHOS 86 U/L (45-117); ANION GAP 7 (8-16); BILIRUBIN,TOTAL 0.5 mg/dL (0.2-1.0); BLOOD UREA NITROGEN 9 mg/dL (7-18); CALCIUM 7.8 mg/dL (8.5-10.1); CO2 35 mmol/L (21-32); CREATININE 0.3 mg/dL (0.55-1.02); GLUCOSE,RANDOM 70 mg/dL (74-106); SGOT/AST 13 U/L (15-37); SGPT/ALT 12 U/L (12-78); TOT PROT 4.9 g/dl (6.4-8.2)
[2017-11-06] MEDS: CEFTRIAXONE IN IS-OSM DEXTROSE 2 GM/50 ML BAG IVPB SCH (09:03)
[2017-11-06] MEDS: ENOXAPARIN NA (PORCINE) 40 MG/0.4 ML DISP.SYRIN SQ SCH (09:09)
[2017-11-06] MEDS: RANITIDINE HCL 150 MG TABLET (FP) PO SCH (09:09)
[2017-11-06] MEDS: FUROSEMIDE 20 MG TABLET (FP) PO SCH (09:09)
[2017-11-06] MEDS: LACTOBACILLUS ACIDOPHILUS 1 EACH TAB (FP) PO SCH (09:09)
[2017-11-06] MEDS: FLUCONAZOLE 100 MG TABLET (UD) PO SCH (09:10)
[2017-11-06] MEDS: POLYETHYLENE GLYCOL 3350 119 GM BTL PO SCH (09:10)
[2017-11-06 09:30] VITALS: PULSE 104
--- NOTE | 2017-11-06 13:20 | DS ---
Physical Examination Vital Signs: Vital Signs Temperature 97.6 F 11/06/17 09:30 Pulse Rate 104 H 11/06/17 09:30 Respiratory Rate 20 11/06/17 09:30 Blood Pressure 120/62 11/06/17 09:30 O2 Sat by Pulse Oximetry (%) 97 11/05/17 21:00 Labs: CBC, BMP 11/06/17 06:15 11/06/17 06:15 Discharge Summary Reason For Visit: PNEUMONIA Current Active Problems Anemia (Acute) Bacteremia (Acute) 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 (Acute) Leukocytosis (Acute) Pneumonia (Acute) Thrombocytopenia (Acute) Thrush, oral (Acute) Urinary tract infection (Acute) Von Willebrand disease (Acute) Condition: Stable - Instructions Diet, Activity, Other Instructions: Please return to the ED with new, persistent, or worsening symptoms. Please follow-up with providers as indicated. Continue Ampicillin 2gm IVPB q4h through December 11, 2017 Continue Ceftriaxone 2mg IVPB bid through December 11, 2017 Referrals: Abel Main [Primary Care Provider] - (Please follow-up with your oncologist within 1 week of discharge) Silvio Garibay MD [Staff Physician] - (Please follow-up with infectious disease within 1 week) Disposition: LONG TERM FACILITY - Home Medications Comprehensive Discharge Medication List: Ambulatory Orders Acetaminophen [Tylenol .Regular Strength -] 650 mg PO Q6H PRN tablet 11/06/17 Albuterol 0.083% Nebulizer Ann Marie [Ventolin 0.083% Nebulizer Soln -] 1 amp NEB Q4H PRN amp 11/06/17 Albuterol 2.5/Ipratropium 0.5 [Duoneb -] 1 amp NEB RQID amp 11/06/17 Ampicillin - 2 gm IVPB Q4H-IV vial 11/06/17 Ceftriaxone [Rocephin -] 2 gm IVPB BID #70 vial 11/06/17 Docusate Sodium [Colace -] 100 mg PO TID capsule 11/06/17 Enoxaparin [Lovenox -] 40 mg SQ DAILY disp.syrin 11/06/17 Fluconazole [Diflucan -] 100 mg PO DAILY tablet 11/06/17 Furosemide [Lasix -] 20 mg PO DAILY tablet 11/06/17 Lactobacillus Acidophilus [Bacid -] 1 tab PO DAILY tab 11/06/17 Mag Hydrox/Alh/Smc/Dpha/Lido [Magic Mouthwash *Sjr Formula* -] 5 ml MM Q6HPO bottle 11/06/17 Melatonin 5 mg PO HS PRN tab 11/06/17 Ondansetron [Zofran Odt -] 4 mg SL Q8H PRN tab.rapdis 11/06/17 Oxycodone HCl [Roxicodone -] 5 mg PO Q6H PRN tablet MDD 20mg 11/06/17 Polyethylene Glycol 3350 [Miralax 119 gm Btl -] 17 gm PO DAILY bottle 11/06/17 Polyvinyl Alcohol [Artificial Tears] 1 drop OU BID PRN drops 11/06/17 Sennosides [Senna -] 2 tab PO HS PRN tablet 11/06/17 - Discharge Referral Referred to [facility] No
--- NOTE | 2017-11-06 13:24 | PN ---
Progress Note, Physician History of Present Illness: Awake and alert. No c/o pain at rest. Afebrile BC 11/02, 11/04 no growth Tolerating antibiotics - Current Medication List Current Medications: Active Medications Acetaminophen (Tylenol -) 650 mg PO Q6H PRN PRN Reason: FEVER Last Admin: 11/05/17 10:39 Dose: 650 mg Albuterol Sulfate (Ventolin 0.083% Nebulizer Soln -) 1 amp NEB Q4H PRN PRN Reason: SHORT OF BREATH/WHEEZING Last Admin: 10/31/17 08:20 Dose: 1 amp Albuterol/Ipratropium (Duoneb -) 1 amp NEB RQID [facility] Last Admin: 11/06/17 11:28 Dose: Not Given Artificial Tears (Artificial Tears) 1 drop OU BID PRN PRN Reason: DRY EYES Docusate Sodium (Colace -) 100 mg PO TID [facility] Last Admin: 11/06/17 06:02 Dose: 100 mg Enoxaparin Sodium (Lovenox -) 40 mg SQ DAILY [facility] Last Admin: 11/06/17 09:09 Dose: 40 mg Fluconazole (Diflucan -) 100 mg PO DAILY [facility] Last Admin: 11/06/17 09:10 Dose: 100 mg Furosemide (Lasix -) 20 mg PO DAILY [facility] Last Admin: 11/06/17 09:09 Dose: 20 mg IV Flush (Picc Line Flush) 8 ml IVPUSH PRN PRN PRN Reason: Protocol IV Flush (Triple Lumen Flush) 4 ml IVPUSH PRN PRN PRN Reason: Protocol Last Admin: 11/03/17 07:14 Dose: 4 ml Ampicillin Sodium 2 gm/ Sodium (Chloride) 100 mls @ 200 mls/hr IVPB Q4H-IV LILLIE Last Admin: 11/06/17 09:04 Dose: 200 mls/hr CEFTRIAXONE IN IS-OSM DEXTROSE (Ceftriaxone 2 Gm-D5w Bag) 2 gm in 50 mls @ 100 mls/hr IVPB BID [facility] Last Admin: 11/06/17 09:03 Dose: 100 mls/hr Lactobacillus Acidophilus (Bacid -) 1 tab PO DAILY [facility] Last Admin: 11/06/17 09:09 Dose: 1 tab Lidocaine/Aluminum/Magnesium/Simeth (Magic Mouthwash *Sjr Formula* -) 5 ml MM Q6HPO LILLIE Last Admin: 11/06/17 11:15 Dose: Not Given Melatonin (Melatonin) 5 mg PO HS PRN PRN Reason: INSOMNIA Last Admin: 11/06/17 00:11 Dose: 5 mg Ondansetron HCl (Zofran Odt -) 4 mg SL Q8H PRN PRN Reason: NAUSEA AND/OR VOMITING Oxycodone HCl (Roxicodone -) 5 mg PO Q6H PRN PRN Reason: PAIN LEVEL 6-10 Last Admin: 11/05/17 21:53 Dose: 5 mg Polyethylene Glycol (Miralax (For Daily Use) -) 17 gm PO DAILY [facility] Last Admin: 11/06/17 09:10 Dose: 17 gm Potassium Chloride (K-Dur -) 40 meq PO ONCE ONE Stop: 11/06/17 13:31 Ranitidine HCl (Zantac -) 150 mg PO DAILY [facility] Last Admin: 11/06/17 09:09 Dose: 150 mg Senna (Senna -) 2 tab PO HS PRN PRN Reason: CONSTIPATION - Objective Vital Signs: Vital Signs Temperature 97.6 F 11/06/17 09:30 Pulse Rate 104 H 11/06/17 09:30 Respiratory Rate 20 11/06/17 09:30 Blood Pressure 120/62 11/06/17 09:30 O2 Sat by Pulse Oximetry (%) 97 11/05/17 21:00 Constitutional: Yes: No Distress, Obese Eyes: Yes: Conjunctiva Clear Cardiovascular: Yes: Regular Rate and Rhythm, S1, S2 Respiratory: Yes: CTA Bilaterally Gastrointestinal: Yes: Normal Bowel Sounds, Soft, Abdomen, Obese Edema: Yes Labs: CBC, BMP 11/06/17 06:15 11/06/17 06:15 INR, PTT INR 1.24 (0.82-1.09) H 10/28/17 08:20 Assessment/Plan Enterococcal bacteremia/sepsis/endocarditis S/P removal of port Multilobar pneumonia Metastatic carcinoma Continue ampicillin/ ceftriaxone. Last +BC 10/31/17 Repeat BC 11/02, 11/04 no growth Tunnel catheter for correction antibiotic therapy: Ampicillin 2gm q4h + ceftriaxone 2gm q12h for additional 5 weeks Discussed with family members at length
[2017-11-06] MEDS ORDERED: POTASSIUM CHLORIDE TABS 20 MEQ TABLET.ER (FP) PO ONE (13:30)
--- NOTE | 2017-11-06 14:06 | PN ---
Progress Note (short form) - Note Progress Note: PULMONARY AFEBRILE APPEARS COMFORTABLE CHART REVIEWED agree with plan for SNF IV antibiotics 5 weeks Pneumonia Enterococcal Bacteremia Endocarditis Metastatic Breast Ca to lung/brain Von Willebrand Disease UTI - continue antibiotics as per ID 5 weeks in SNF - inhaled bronchodilators - O2 to keep SpO2 >90% - monitor CBC - DVT prophylaxis Ramo ROCA MD
[2017-11-06 14:31] VITALS: BP 104/60; TEMP 97.8
[2017-11-06] MEDS: ACETAMINOPHEN 325 MG TABLET (FP) PO PRN (18:11)
--- NOTE | 2017-11-06 19:09 | PN ---
Progress Note, Physician History of Present Illness: Blood cultures remain clear with appropriate abx coverage as of 11/02. Patient underwent tunnelled catheter placement and is now being transferred to SNF. - Current Medication List Current Medications: Active Medications Acetaminophen (Tylenol -) 650 mg PO Q6H PRN PRN Reason: FEVER Last Admin: 11/06/17 18:11 Dose: 650 mg Albuterol Sulfate (Ventolin 0.083% Nebulizer Soln -) 1 amp NEB Q4H PRN PRN Reason: SHORT OF BREATH/WHEEZING Last Admin: 10/31/17 08:20 Dose: 1 amp Albuterol/Ipratropium (Duoneb -) 1 amp NEB RQID [facility] Last Admin: 11/06/17 15:50 Dose: Not Given Artificial Tears (Artificial Tears) 1 drop OU BID PRN PRN Reason: DRY EYES Docusate Sodium (Colace -) 100 mg PO TID [facility] Last Admin: 11/06/17 13:47 Dose: 100 mg Enoxaparin Sodium (Lovenox -) 40 mg SQ DAILY [facility] Last Admin: 11/06/17 09:09 Dose: 40 mg Fluconazole (Diflucan -) 100 mg PO DAILY [facility] Last Admin: 11/06/17 09:10 Dose: 100 mg Furosemide (Lasix -) 20 mg PO DAILY [facility] Last Admin: 11/06/17 09:09 Dose: 20 mg IV Flush (Picc Line Flush) 8 ml IVPUSH PRN PRN PRN Reason: Protocol IV Flush (Triple Lumen Flush) 4 ml IVPUSH PRN PRN PRN Reason: Protocol Last Admin: 11/03/17 07:14 Dose: 4 ml Ampicillin Sodium 2 gm/ Sodium (Chloride) 100 mls @ 200 mls/hr IVPB Q4H-IV [facility]ILLIE Last Admin: 11/06/17 18:46 Dose: Not Given CEFTRIAXONE IN IS-OSM DEXTROSE (Ceftriaxone 2 Gm-D5w Bag) 2 gm in 50 mls @ 100 mls/hr IVPB BID [facility] Last Admin: 11/06/17 09:03 Dose: 100 mls/hr Lactobacillus Acidophilus (Bacid -) 1 tab PO DAILY [facility] Last Admin: 11/06/17 09:09 Dose: 1 tab Lidocaine/Aluminum/Magnesium/Simeth (Magic Mouthwash *Sjr Formula* -) 5 ml MM Q6HPO [facility] Last Admin: 11/06/17 17:22 Dose: Not Given Melatonin (Melatonin) 5 mg PO HS PRN PRN Reason: INSOMNIA Last Admin: 11/06/17 00:11 Dose: 5 mg Ondansetron HCl (Zofran Odt -) 4 mg SL Q8H PRN PRN Reason: NAUSEA AND/OR VOMITING Oxycodone HCl (Roxicodone -) 5 mg PO Q6H PRN PRN Reason: PAIN LEVEL 6-10 Last Admin: 11/05/17 21:53 Dose: 5 mg Polyethylene Glycol (Miralax (For Daily Use) -) 17 gm PO DAILY [facility] Last Admin: 11/06/17 09:10 Dose: 17 gm Ranitidine HCl (Zantac -) 150 mg PO DAILY [facility] Last Admin: 11/06/17 09:09 Dose: 150 mg Senna (Senna -) 2 tab PO HS PRN PRN Reason: CONSTIPATION - Objective Vital Signs: Vital Signs Temperature 97.8 F 11/06/17 14:30 Pulse Rate 104 H 11/06/17 14:30 Respiratory Rate 20 11/06/17 14:30 Blood Pressure 104/60 11/06/17 14:30 O2 Sat by Pulse Oximetry (%) 94 L 11/06/17 09:00 Constitutional: Yes: No Distress, Calm Neck: Yes: Supple Cardiovascular: Yes: Regular Rate and Rhythm Respiratory: Yes: Regular, Diminished Gastrointestinal: Yes: Normal Bowel Sounds, Soft, Abdomen, Obese Edema: Yes Edema: LUE: 1+, RUE: 1+ Labs: CBC, BMP 11/06/17 06:15 11/06/17 06:15 INR, PTT INR 1.24 (0.82-1.09) H 10/28/17 08:20 Problem List - Problems (1) Bacteremia Code(s): R78.81 - BACTEREMIA (2) 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 Code(s): C50.919 - MALIGNANT NEOPLASM OF UNSP SITE OF UNSPECIFIED FEMALE BREAST ; C78.00 - SECONDARY MALIGNANT NEOPLASM OF UNSPECIFIED LUNG Qualifiers: Laterality: right Qualified Code(s): C50.911 - Malignant neoplasm of unspecified site of right female breast; C78.00 - Secondary malignant neoplasm of unspecified lung; C78.00 - Secondary malignant neoplasm of unspecified lung; C78.00 - Secondary malignant neoplasm of unspecified lung; C78.00 - Secondary malignant neoplasm of unspecified lung (3) Pneumonia Code(s): J18.9 - PNEUMONIA, UNSPECIFIED ORGANISM (4) Urinary tract infection Code(s): N39.0 - URINARY TRACT INFECTION, SITE NOT SPECIFIED Qualifiers: Urinary tract infection type: site unspecified Hematuria presence: without hematuria Qualified Code(s): N39.0 - Urinary tract infection, site not specified (5) Breast cancer metastasized to brain Code(s): C50.919 - MALIGNANT NEOPLASM OF UNSP SITE OF UNSPECIFIED FEMALE BREAST ; C79.31 - SECONDARY MALIGNANT NEOPLASM OF BRAIN Qualifiers: Laterality: unspecified laterality Qualified Code(s): C50.919 - Malignant neoplasm of unspecified site of unspecified female breast; C79.31 - Secondary malignant neoplasm of brain; C79.31 - Secondary malignant neoplasm of brain; C79.31 - Secondary malignant neoplasm of brain; C79.31 - Secondary malignant neoplasm of brain (6) Thrombocytopenia Code(s): D69.6 - THROMBOCYTOPENIA, UNSPECIFIED (7) Anemia Code(s): D64.9 - ANEMIA, UNSPECIFIED Qualifiers: Anemia type: bone marrow failure Bone marrow failure anemia type: pancytopenia, antineoplastic chemotherapy-induced Qualified Code(s): D61.810 - Antineoplastic chemotherapy induced pancytopenia; T45.1X5A - Adverse effect of antineoplastic and immunosuppressive drugs, initial encounter; T45.1X5A - Adverse effect of antineoplastic and immunosuppressive drugs, initial encounter Assessment/Plan 1. Suspicious mobile LA echodensity, etiology unclear 2. Enterococcal bacteremia/sepsis suspect port infection post removal 3. Multi-lobar pneumonia 4. Breast CA with metastasis to brain and lung post lumpectomy, gamma knife and radiation and chemotherapy 5. Anemia and thrombocytopenia referable to sepsis post transfusion 6. Von Willebrand Disease PLAN: 1. Transthoracic echocardiography images re-examined - would favor conservative management as patient will not be an ideal candidate for any surgical intervention at this time even though it is not fully clear as to the etiology of the echodensity in the left atrium. 2. Additional 5 weeks ampicillin/ceftriaxone coverage per ID via tunneled catheter as bacteremia has cleared 3. Surveillance culture NGTD 4. Transfer to [facility]
== END 2017-11-06 20:13 | DRG 919 ==
LOC: FER 02:13 → SUPCPDRO 02:13 → FM/S 06:44 → J7W 10-30 13:00
PROVIDERS: ADMIT Internal Medicine; ATTEND Registered Nurse
PROC: 0WP803Z Removal of Infusion Device from Chest Wall, Open Approach (ICD-10-PCS; principal; 2017-10-28 13:06)
PROC: 02HV33Z Insertion of Infusion Device into Superior Vena Cava, Percutaneous Approach (ICD-10-PCS; 2017-10-30)
PROC: B518ZZA Fluoroscopy of Superior Vena Cava, Guidance (ICD-10-PCS; 2017-10-30)
PROC: 0JH63XZ Insertion of Tunneled Vascular Access Device into Chest Subcutaneous Tissue and Fascia, Percutaneous Approach (ICD-10-PCS; 2017-11-06)
PROC: 02HV33Z Insertion of Infusion Device into Superior Vena Cava, Percutaneous Approach (ICD-10-PCS; 2017-11-06)
DX: T85.79XA Infection and inflammatory reaction due to other internal prosthetic devices, implants and grafts, initial encounter (principal); J18.9 Pneumonia, unspecified organism; A41.9 Sepsis, unspecified organism; N39.0 Urinary tract infection, site not specified; B37.0 Candidal stomatitis; C78.00 Secondary malignant neoplasm of unspecified lung; C79.31 Secondary malignant neoplasm of brain; D68.0 Von Willebrand disease; I38 Endocarditis, valve unspecified; D69.6 Thrombocytopenia, unspecified; D72.829 Elevated white blood cell count, unspecified; C50.919 Malignant neoplasm of unspecified site of unspecified female breast; R26.81 Unsteadiness on feet; I95.9 Hypotension, unspecified; Y83.9 Surgical procedure, unspecified as the cause of abnormal reaction of the patient, or of later complication, without mention of misadventure at the time of the procedure; D64.9 Anemia, unspecified; M25.551 Pain in right hip; B96.20 Unspecified Escherichia coli [E. coli] as the cause of diseases classified elsewhere; E87.6 Hypokalemia
CPT/HCPCS: 36415; 36430; 36556; 36558; 36569; 71045-TC; 71250-TC; 72192-TC; 73502-TC-RT; 74177-TC; 75820-TC; 77001-TC; 80048; 80053; 81003; 81015; 82272; 82550; 82803; 82962; 83605; 83735; 84100; 84132; 84450; 84484; 85025; 85027; 85610; 85651; 86140; 86850; 86900; 86901; 86922; 87040; 87070; 87075; 87086; 87186; 87205; 87804; 87899; 93005; 93306-TC; 93970-TC; 94010; 94640; 97116-GP; 97162-GP; 99284-25; C1751; C1769; C1887; P9038; P9058